=== PATIENT | female | born 1960 | race Caucasian/White ===

== ENCOUNTER 2025-01-17 23:45 | Inpatient (IN) | payer BC, SELFPAY ==
[2025-01-17 22:09] VITALS: BP 132/112
[2025-01-17 22:10] VITALS: BP 150/105; BP 152/112
[2025-01-17 22:18] VITALS: BP 131/78
[2025-01-17 22:21] VITALS: BMI 35.3
--- NOTE | 2025-01-17 22:23 | ED.GENMED ---
History of Present Illness
General
Chief Complaint: Chest Pain
Source: patient and previous hospital records (Acute inferior wall OR 2013. PTCA with stent to proximal RCA. Cath showed single vessel CAD)
Exam Limitations: none
Time Seen by Provider: 01/17/25 22:06
History of Present Illness
History of Present Illness:
The patient is a 64-year-old female with a history of myocardial infarction approximately 10 years ago, presenting with chest pain. The pain started about 20 minutes ago, abrupt and severe accompanied with diaphoresis, mild shortness of breath. The
pain was significant upon arrival, reported as a 10 out of 10 in intensity. Similar chest pain with her OR approximately 10 years ago. Treated here and underwent PTCA with stent. She admits that she has neglected follow-up with cardiology within
the past few years. Vital signs and ECG were conducted upon arrival. EKG shows ST segment elevation anteriorly with reciprocal flipped T's inferiorly consistent with STEMI, acute anterior wall OR. STEMI alert initiated by triage nurse. Patient
has been quickly brought to room 7. The patient did not take nitroglycerin at home but admitted to ingesting approximately five low-dose aspirin tablets, albeit they were not chewable.
Prior to tonight patient had been feeling well.
She continues to smoke cigarettes.
Past History
Past History
ED Past Medical History: CAD, HTN and OR (2013 and again today, January 17, 2025)
ED Past Surgical History: Cardiac (PTCA with stent to the proximal RCA 2013) and Orthopedic
Social History
Tobacco: Smoker
Alcohol: Occasional
Drug: Marijuana
Personal:
Living: with roommate
Employment: Employed
Family History
Family History: Hypertension
Phy Exam
Physical Exam
Physical Exam:
GENERAL: 64-year-old woman appears her stated age, awake and alert, appears in moderate distress, anxious, diaphoretic, mildly short of breath. Easily communicative.
EYE: anicteric
NECK: Supple, nontender, no meningismus, no significant adenopathy.
ENT: oral mucosa is moist. No rhinorrhea.
CARDIAC: Regular rate and rhythm in the 80s. no murmur.
LUNGS: Mild resting tachypnea, mildly decreased breath sounds at bases otherwise clear to auscultation.
ABDOMEN: Rotund, soft, nondistended, without focal tenderness, normoactive BS.
NEUROLOGICAL: Alert and oriented x3, no focal neuro deficits.
SKIN: Warm and mildly diaphoretic, normal color, skin intact. No rash.
MUSCULOSKELETAL: No C/C/E. peripheral pulses are full and equal b/l. No palpable tenderness.
PSYCH: Moderately anxious. Cooperative.
Scores
Heart Score for Chest Pain Patients
STEMI patient?: Yes
Course
Orders/Labs/Results
Orders:
Orders
01/17/25 22:02
Electrocardiogram (*1) Urgent
Reason for Study: Chest Pain
EKG- Treatment ONCE
01/17/25 22:15
Complete Blood Count/With Diff Urgent
Comprehensive Metabolic Panel Urgent
Troponin I Urgent
01/17/25 22:19
Ondansetron Injectable [Zofran] 4 mg .ROUTE .STK-MED ONE
01/17/25 22:27
PT/INR [Prothrombin Time] Urgent
01/17/25 22:31
Morphine Sulfate 2 mg .ROUTE .STK-MED ONE
01/17/25 22:33
Nitroglycerin Sublingual [Nitrostat (Sublingual)] 0.4 mg .ROUTE .STK-MED ONE
01/17/25 22:34
Metoprolol [Lopressor] 5 mg .ROUTE .STK-MED ONE
Ticagrelor [Brilinta] 180 mg .ROUTE .STK-MED ONE
01/17/25 22:35
Heparin 5,000 units .ROUTE .STK-MED ONE
01/17/25 23:25
ECG [Electrocardiogram (*1)] Stat
Reason for Study: Chest Pain
Code Status As Directed
Resuscitation Status: Full Code
VTE Contraindication Routine
VTE Mechanical Device Contraindication: Medical Contraindication
Pharmocologic Contraindication: Medical Contraindication
Hgba1c [Glycohemoglobin (HgbA1c)] Routine
01/17/25 23:26
Admit Patient As Directed
Co-Sign Provider:
Level of Care: Inpatient admission
Assign to:: CVICU
Physician / Group: jerri
Diagnosis: Anterior stemi
Reason for Hospitalization: Anterior STEMI
Expected length of stay greater than two midnights?: Yes
ELOS- Estimated Length of Stay in days: 4
I certify the patient meets the requirements for IP care: Yes
Activity As Directed
Activity Level: Out of Bed- Ad Ara
Activity Frequency: Ad Ara
Salvage Engineer Procedure As Directed
Cardiac Cath Procedure: cardiac catheterization
Notify MD As Directed
Notify physician if: immediately for chest pain or bleeding from access site(s)
Radial Artery Hemostasis Method As Directed
Instructions:: 3 mL out at 1 hour post placement of band
3 mL out at 1 1/2 hours post placement of band
3 mL out at 2 hours post placement of band
Off at 2 1/2 hours post placement of band
If any oozing or hemotoma occurs:: re-inflate band and call provider
Site Checks As Directed
Check access site for bleeding/hematoma: Yes
Comment: on arrival, Q15min x4, Q30min x2, Q1 hr x2, Q2 hr x2, Q4 hr or per
protocol
Vascular Checks As Directed
Location: distal to access site - pulse check
Frequency: Other
Comment: on arrival, Q15min x4, Q30min x2, Q1 hr x2, Q2 hr x2, Q4 hr or per protocol
Vital Signs As Directed
Frequency: Other
Additional Instructions:: on arrival, Q15min x4, Q30min x2, Q1 hr x2, Q2 hr x2, then Q4 hr or per unit
protocol
PRN Pain Medication Management As Directed
May give lesser potent ordered pain med per pt: Yes
preference::
Protocol:: Medication orders for pain may be administered in a
manner that supports deferring to patient preference
when the pt is:
- Requesting an ordered lesser potent pain medication.
Least to most potent pain medications are defined
as: acetaminophen < NSAID < tramadol < opioids
(morphine, oxycodone, hydromorphone).
- Requesting a lesser dose of the same medication IF
ORDERED.
- Requesting a less intrusive route of administration
if both routes are prescribed by the provider (PO <
IV).
01/17/25 23:30
Troponin I Q6H
Nitroglycerin 100 mg/250 ml [Nitroglycerin Premix] 100 mg in 250 ml IV PER PROTOCOL
Initial dose in mcg/min, then titrate:: 10
Titrate to keep:: Chest Pain Free
Titrate by mcg/min:: 5 mcg/min, may increase by 10 mcg/min if dose > 20 mcg/min
Frequency of titrations (minutes):: every 3-5 minutes
Maximum dose in mcg/min:: 200
Begin to taper infusion when:: Remained at goal for 2hrs
Taper by mcg/min:: 5 mcg/min
Frequency of taper (minutes) if patient maintains goal:: 30
Taper to off?: Yes
If infusion off & no longer maintaining goal:: Contact Provider
01/17/25 23:35
Albuterol [ProAIR HFA INHALER] 2 puff INH R Q4HPRN PRN wheezing
01/17/25 23:38
Atorvastatin [Lipitor] 40 mg PO NOW STA
01/17/25 23:39
Cardiothoracic Surgery Consult Urgent
Consulting Provider: Suhail Gonzales
Was physician already notified: Yes
01/18/25 03:00
Heparin 00593 Units/250 ml 25,000 units in 250 ml IV PER PROTOCOL
Weight to be used for heparin protocol in kilograms (kg):: 96.2
Protocol:: Cardiac Tx/Acute Coronary
PTT Goal Range to be used:: PTT 73 to 111 seconds
Order type:: Initial
INITIAL Infusion Dose (UNITS/KG/hr) & then follow protocol:: 12 units/kg/hr
Infusion Dose in UNITS/hr & then follow protocol (UNITS/hr):: 1,000
INFUSION RATE in mL/hr & then follow protocol (mL/hr):: 10
PTT less than or equal to 64 seconds:: Increase rate by 200 units/hr (+ 2 mL/hr)
PTT 64.1 to 72.9 seconds:: Increase rate by 100 units/hr (+ 1 mL/hr)
PTT 73 to 111 seconds:: Target Range. No change in rate.
PTT 111.1 to 130.9 seconds:: Decrease rate by 100 units/hr (- 1 mL/hr)
PTT 131 to 199.9 seconds:: HOLD for 1 hr. Then decrease rate by 200 units/hr (- 2 mL/hr)
PTT greater than or equal to 200 seconds:: HOLD for 2 hrs & Notify Provider. Then decrease by 200 units/hr (-
2 mL/hr)
Lab follow-up:: Each change, PTT q6h until 2 consecutive are therapeutic. Then PTT
daily.
Heparin Protocol- PTT Orders As Directed
PTT per Heparin protocol: -Obtain CBC and baseline PTT - if not already collected.
-Obtain PTT 6 hours from start of infusion. Then, every 6 hours until 2 consecutive
PTT's are therapeutic. Then, PTT Daily.
-With each rate change, obtain PTT every 6 hours until 2 consecutive PTT's are
therapeutic. Then, PTT Daily.
Notify MD As Directed
Notify physician if: PTT is greater than or equal to 200.
01/18/25 04:44
Basic Metabolic Panel IN AM
Cardiovascular Evaluation IN AM
Complete Blood Count/No Diff IN AM
Troponin I Q6H
01/18/25 06:00
Echo 2D MMode Color/Doppler [Echo 2D MMode Color/Doppler] IN AM
Reason for Study: Anterior wall OR
Cardiology Consult: Bradly Guthrie
Electrocardiogram (*1) IN AM
Reason for Study: Chest Pain
Cholesterol Lowering
At Your Request: Full Participation
Cholesterol Lowering: Sodium, 2 Gram
01/18/25 08:00
Aspirin Low Dose EC [Aspir Low (Enteric Coated)] 81 mg PO DAILY
Metoprolol Xl [Toprol Xl] 25 mg PO DAILY
01/18/25 11:30
Troponin I Q6H
01/18/25 12:00
ECG [Electrocardiogram (*1)] Routine
Reason for Study: Chest Pain
01/18/25 15:00
Complete Blood Count/No Diff Urgent
Comment: Obtain baseline before beginning heparin infusion if not already collected
PTT Routine
Comment: Obtain baseline before beginning heparin infusion if not already collected
01/18/25 18:00
Atorvastatin [Lipitor] 80 mg PO QPM
01/19/25 06:00
Complete Blood Count/No Diff Q2D
Comment: Notify MD if platelet count is <130,000 or decreases by 50% from baseline
01/21/25 06:00
Complete Blood Count/No Diff Q2D
Comment: Notify MD if platelet count is <130,000 or decreases by 50% from baseline
01/23/25 06:00
Complete Blood Count/No Diff Q2D
Comment: Notify MD if platelet count is <130,000 or decreases by 50% from baseline
01/25/25 06:00
Complete Blood Count/No Diff Q2D
Comment: Notify MD if platelet count is <130,000 or decreases by 50% from baseline
01/27/25 06:00
Complete Blood Count/No Diff Q2D
Comment: Notify MD if platelet count is <130,000 or decreases by 50% from baseline
01/29/25 06:00
Complete Blood Count/No Diff Q2D
Comment: Notify MD if platelet count is <130,000 or decreases by 50% from baseline
01/31/25 06:00
Complete Blood Count/No Diff Q2D
Comment: Notify MD if platelet count is <130,000 or decreases by 50% from baseline
02/02/25 06:00
Complete Blood Count/No Diff Q2D
Comment: Notify MD if platelet count is <130,000 or decreases by 50% from baseline
Abnormal Lab Results
01/17/25 01/17/25 01/17/25
22:15 22:27 22:51
WBC 12.6 H 10^3/uL
(4.8-10.8)
MCHC 32.7 L g/dL
(33.0-37.0)
RDW 15.1 H %
(11.5-14.5)
MPV 11.0 H fL
(7.4-10.4)
Abs Immat Gran (auto) 0.1 H 10^3/uL
(0-0.05)
Absolute Neuts (auto) 7.4 H 10^3/uL
(1.4-6.5)
Absolute Lymphs (auto) 4.0 H 10^3/uL
(1.2-3.4)
Absolute Monos (auto) 0.8 H 10^3/uL
(0.1-0.6)
PT 14.7 H Sec
(11.4-14.6)
Glucose 126 H mg/dl
(70-99)
ALT 36 H U/L
(0-35)
Alkaline Phosphatase 147 H U/L
(38-126)
POC ACT Low Range 190 H Seconds
(116-155)
01/17/25
23:15
WBC
MCHC
RDW
MPV
Abs Immat Gran (auto)
Absolute Neuts (auto)
Absolute Lymphs (auto)
Absolute Monos (auto)
PT
Glucose
ALT
Alkaline Phosphatase
POC ACT Low Range 231 H Seconds
(116-155)
01/17/25 22:15
01/17/25 22:15
Vital Signs
Initial and Last Documented VS:
Initial Vital Signs
BP
132/112
01/17/25 22:09
Last Documented Vital Signs
Temp Pulse Resp BP Pulse Ox
97.8 F 62 14 113/58 97
01/18/25 00:00 01/18/25 07:01 01/18/25 07:01 01/18/25 07:01 01/18/25 07:01
MDM/Problems Addressed
Differential Diagnosis Includes:
The Differential Diagnosis includes, in no particular order and is not limited to:
1. Acute Myocardial Infarction
2. Angina Pectoris
3. Aortic Dissection
4. Pulmonary Embolism
5. Pericarditis
6. Costochondritis
7. Gastroesophageal Reflux Disease (GERD)
8. Pneumonia
9. Anxiety-Panic Disorder
10. Esophageal spasm
MDM/Problems Addressed:
EKG consistent with acute anterior wall OR�STEMI. STEMI alert initiated promptly after EKG completed.
Initial chest pain 10 out of 10. Moderately uncomfortable. Hypertensive with initial blood pressure 150/110. Initial pulse ox 94 to 95%.
Patient has taken 5-6 baby aspirin at home.
Chest pain improving after 3 sublingual nitroglycerin tablets. Blood pressure improving to 130/70
She has also been given Brilinta 180 mg�chewed. Heparin 5000 units IV. Lopressor 5 mg IV.
Substernal chest pain has markedly improved but persists with onset of nausea. She has been given an IV dose of Zofran.
Pulse ox drifting down to 89/90%, nasal cannula oxygen initiated. Patient reports increase in nausea with nasal cannula oxygen thus cannula has been transition to oral position with improvement in pulse ox.
Case discussed with cardio interventionalist, Dr. Guthrie. Awaiting his arrival as well as Salvage Engineer team arrival.
Chronic conditions affecting care: HTN and CAD
Acute Exacerbation and/or Progression of Chronic Illness: CAD
*Pulse Oximetry
SaO2: 90
Oxygen Mode of Delivery: Room air
Patient hypoxic: yes
*EKG
Interpreted by ED Provider?: Yes
Interpretation: abnormal
Comparison EKG: changes noted
Rate: normal
Rhythm: sinus
Martin: normal axis
Interval: normal interval
QRS Pattern: poor R-wave progression
Ischemia: ST elevation
*Automobile Relocation Engineer Interpretation
Rate: normal
Interpretation: normal
Rhythm: sinus
*Critical Care Note
Total Time (30-74mins, 75-104mins- exclusive of procedures): 30
comment:
Critical care statement: A total of 30 minutes of critical care time was provided for this patient. This includes management of unstable vital signs, evaluation of the patient at bedside, reviewing the patient's pertinent medical records, discussion
with consultants, review of old EKGs and review of pertinent medical records. This time with separate from time utilized to perform the aforementioned documented procedures
ED Attending Note
-
Portions of this chart may have been created with voice recognition software.� Occasional wrong word or��sound alike� substitutions may have occurred due to the inherent limitations of voice recognition software.
Discharge Plan
Departure
Patient Disposition: Admit
Date of Disposition: 01/17/25
Time of Disposition: 22:23
Admit to: CVICU and supervisor labor gang
Admit to doctor: Jerri
Presentation/result/management discussed w/ accepting MD/DO: Cardiology
Condition: Critical
Discharge Problem:
ST elevation (STEMI) myocardial infarction
Interventions
Interventions:
*General Assessment Last Done: 01/17/25 22:16
*Neglect/Abuse Screening Last Done: 01/17/25 22:16
*ED- Fall Risk Assessment Last Done: 01/17/25 22:16
*Nursing Disposition Last Done: 01/17/25 22:40
ED- Cardiac Assessment Last Done: 01/17/25 22:16
Discharge Date and Time
Discharge Date/Time: 01/17/25 22:40
[2025-01-17 22:32] LABS: Hematocrit 46.2 % (37.0-47.0); Hemoglobin 15.1 g/dL (12.0-16.0); Mean Corp Hgb Conc. 32.7 g/dL (33.0-37.0); Mean Corpuscular Volume 86.0 fL (81.0-99.0); Nucleated Red Blood Cells % 0 %; Platelet Count 243 10^3/uL (130-400); Red Cell Dist. Width 15.1 % (11.5-14.5)
[2025-01-17 22:43] LABS: ALT (SGPT) 36 U/L (0-35); AST (SGOT) 24 U/L (14-36); Albumin 4.4 g/dl (3.5-5.0); Alkaline Phosphatase 147 U/L (38-126); Blood Urea Nitrogen 15 mg/dl (7-17); Calcium 9.7 mg/dl (8.4-10.2); Carbon Dioxide 27 mmol/L (22-30); Chloride 104 mmol/L (98-107); Estimated Creatinine Clearance 110 ml/min; Glucose 126 mg/dl (70-99); Potassium 3.8 mmol/L (3.5-5.1); Sodium 138 mmol/L (135-145); Total Protein 7.4 g/dl (6.3-8.2); eGFR > 60.00
[2025-01-17 22:51] LABS: INR 1.12; PT 14.7 Sec (11.4-14.6)
[2025-01-17 22:56] LABS: ACT-LR - POC 190 Seconds (116-155)
[2025-01-17 23:07] LABS: Troponin I < 0.012 ng/ml
[2025-01-17 23:20] LABS: ACT-LR - POC 231 Seconds (116-155)
[2025-01-17] MEDS: LIPITOR 40 MG PO (23:51)
[2025-01-18] VITALS (31 sets, daily range): BP systolic 100–134; BP diastolic 54–96; BMI 34.2
--- NOTE | 2025-01-18 | PTCARENOTE ---
pt received from [facility] into room 2268. pt AAOx4. Nitro gtt infusing @ 10mg - pt reports CP is 2/10. VSS. SR on monitor, HR 70s. EKG completed. TR band intact to R radial cath site, CDI. bilateral radial pulses palpable. bilateral DP pulses present by
doppler. bilateral breath sounds present. POX 95% on 4LNC. pt denies any SOB. +BS, abdomen soft, nontender. PIV intact and patent. ordered labs drawn and sent. family at bedside.
--- NOTE | 2025-01-18 00:06 | W.PN.UPDATE ---
Update Note
Progress Note Update
Please refer to dictated history and physical for more complete details.
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 She has a prior history of noncompliance and discontinued all of her medications including aspirin quite sometime ago and has not been seen in our office for more than 1 year. She
has a prior history of an acute inferior wall myocardial infarction in December 2013 and underwent successful stenting of the proximal to mid right coronary artery with a 3.5 x 33 mm Xience stent. The patient reports that she has been feeling poorly
for about 6 months with recurring belching and indigestion during periods of physical exertion and at rest. This evening she developed severe substernal chest pressure with symptoms lasting about 20 minutes before she presented to [facility] for evaluation. Her electrocardiogram was notable for anterior ST segment elevation involving leads V2 through V4 and a STEMI alert was activated. She took 5 baby aspirin's at home and received 180 mg loading dose of ticagrelor in the ""emergency department. She was referred for emergent coronary angiography with her chest pain improving from 10/10 in intensity to 3-4/10 in intensity by the time she left the emergency department. She underwent coronary angiography and was found
to have severe multivessel coronary artery disease. Please refer to the catheterization report for complete details. She became chest pain-free during the procedure. Given her extent of coronary artery disease it was felt that coronary artery
bypass grafting would probably be her best treatment option. I discussed with patient and family. She will be evaluated by CT surgery in the morning. She remained chest pain-free at the conclusion of the diagnostic angiogram.
--- NOTE | 2025-01-18 00:11 | ITS.CL.CATH ---
Multi Share Program Coordinator - Catheterization
Cardiac Catheterization
Procedure Report:
LEFT HEART CATHETERIZATION
Date of Procedure: January 17, 2025
Referring: [facility] Emergency Department
PROCEDURES:
1. Left heart catheterization with coronary and single-plane left ventriculography
INDICATION: This is a 64-year-old female with a past medical history notable for an inferior wall myocardial infarction treated with successful stenting of the proximal to mid right coronary artery with placement of a 3.5 x 33 mm Xience stent.
Since that time she has been only intermittently compliant with medications. She was last seen by Dr. Justin about 15 months ago and reported that she had discontinued all of her medications including aspirin. She now presents to [facility] for evaluation of 10 out of 10 substernal chest pressure that began approximately 30 minutes prior to presentation. Her electrocardiogram was notable for anterior ST segment elevation. She received a loading dose of ticagrelor, sublingual
nitroglycerin, and intravenous heparin with significant improvement in her chest pain syndrome (pain rated 3-4/10 in intensity). A STEMI alert was activated and she is referred for coronary angiography. The patient does continue to smoke between a
half a pack and a pack of cigarettes daily.
ACCESS: Right radial artery, 6 Nepali sheath
HEMODYNAMICS : (mmHg)
AO (s/d) : 141/84
LV (s/d) : 138/15
LVEDP : 30
CORONARY FINDINGS
DOMINANCE: Right
LEFT MAIN: Short and unobstructed
LEFT ANTERIOR DESCENDING: The LAD arises normally from the left main and runs in the anterior interventricular groove. There is a hazy ulcerated 95% stenosis in the mid LAD with JOHN II flow into the distal vessel.
CIRCUMFLEX: The circumflex is a medium caliber nondominant vessel with a complex Crenshaw 1,1,1 stenosis in the mid circumflex with a 95% stenosis in the mid circumflex involving a large OM1 and proximal to mid portion of OM 2.
RIGHT CORONARY ARTERY: The right coronary artery is a dominant vessel. There is diffuse 50% in-stent restenosis in the right coronary stent. The mid right coronary artery beyond the stented segment has a 40% stenosis. The PDA has a 60% mid
stenosis and a posterolateral branch has a 90% proximal stenosis
VENTRICULOGRAPHY: Left ventriculography was performed in an BAPTISTE projection. The digital single-plane left ventricular ejection fraction is estimated at 35-40% with mid to distal anterior hypokinesis
NOTE: At this point the patient reported that she was chest pain-free. I reviewed the angiograms with Dr. Gonzales and given the complexity of her coronary disease and chronic medical noncompliance the decision was made to hold on percutaneous
revascularization and refer for coronary artery bypass grafting
SEDATION: 0 minutes of procedural sedation was utilized. The patient refused fentanyl or Versed.
RADIATION SUMMARY: Fluoro Time (min): 3.2, Dose (mGy): 474, DAP (Gy.cm2) : 29.4
Closure Device: TR band
CONCLUSIONS
1. Multivessel coronary artery disease involving the mid LAD and trifurcation stenosis (Crenshaw 1,1,1) involving the mid circumflex, large OM 1 and moderate OM 2 as well as the PDA and posterolateral branch
2. Moderately reduced LV systolic function
RECOMMENDATIONS
1. The patient became chest pain-free during the catheterization procedure and had not received fentanyl or Versed during the procedure. There was JOHN II flow into the apical LAD. The angiograms were reviewed with Dr. Gonzales and given the
complexity of her coronary disease and chronic history of medical noncompliance a decision was made to evaluate for coronary artery bypass grafting
2. Will trend serial troponin levels and obtain fasting lipid profile and hemoglobin A1c
3. Continue intravenous heparin and nitroglycerin
4. Could consider intra-aortic balloon pump for recurring symptoms
Copy to: Dr. Desean Justin
[2025-01-18] MEDS: ATIVAN 0.5 MG PO (00:51)
[2025-01-18 01:39] LABS: Troponin I 1.290 ng/ml
[2025-01-18] MEDS: HEPARIN 25000 UNITS/250 ML IV ×2 (03:21→23:39)
--- NOTE | 2025-01-18 05:00 | PTCARENOTE ---
no acute changes, VSS. SR 60s-70s. Nitro gtt infusing @ 15mg. Heparin gtt infusing per orders. POX 93-98% on room air. AM labs drawn and sent. EKG done. pt resting between care.
[2025-01-18 05:22] LABS: Hematocrit 40.0 % (37.0-47.0); Hemoglobin 13.3 g/dL (12.0-16.0); Mean Corp Hgb Conc. 33.3 g/dL (33.0-37.0); Mean Corpuscular Volume 87.1 fL (81.0-99.0); Platelet Count 197 10^3/uL (130-400); Red Cell Dist. Width 15.0 % (11.5-14.5)
[2025-01-18 05:43] LABS: Blood Urea Nitrogen 16 mg/dl (7-17); Calcium 9.0 mg/dl (8.4-10.2); Carbon Dioxide 26 mmol/L (22-30); Chloride 108 mmol/L (98-107); Estimated Creatinine Clearance 110 ml/min; Glucose 114 mg/dl (70-99); HDL Cholesterol 32 mg/dl; LDL Cholesterol, Calculated 92 mg/dl; Potassium 3.8 mmol/L (3.5-5.1); Sodium 139 mmol/L (135-145); Very Low Density Lipoprotein 45 mg/dl (0-30); eGFR > 60.00
[2025-01-18 05:59] LABS: Troponin I 11.500 ng/ml
[2025-01-18 08:16] LABS: Magnesium 1.9 mg/dl (1.6-2.3)
[2025-01-18] MEDS: PROTONIX PO (08:55)
[2025-01-18] MEDS: ASPIR LOW (ENTERIC COATED) 81 MG PO (08:55)
[2025-01-18] MEDS: TOPROL XL 25 MG PO (08:55)
--- NOTE | 2025-01-18 09:23 | CONSULT.CT ---
Addendum entered and electronically signed by Lesa Toro NP 01/18/25 11:56:
Performing Provider: Lesa ALICEA for Jagruti Blackwell MD
Original Note:
Consultation
-
Date/Time Consultation Requested: 01/17/25 at 2330
Date/Time Consultation Performed: 01/18/25 at 0900
Requesting Provider: Dr. Bradly Guthrie
Performing Provider: NIXON Vasques for Jagruti Blackwell
Reason for Consultation: STEMI with Multivessel CAD
Patient History
Physicians
Family Physician: Dr. Hammad Turner
Outpatient Jacquard Fixer: [facility] ([facility])
Inpatient Jacquard Fixer: [facility]
History of Present Illness
Ms Hammond is a 64-year-old female with a past medical history of CAD with prior inferior KY status post stent to proximal RCA (2013), hypertension, and tobacco misuse who presented to [facility] ED with complaints of chest pain. Patient reported she woke
up in the middle of the night with sudden onset of 10/10 chest pain with associated diaphoresis and shortness of breath. Prior to her chest pain, she reported recent nausea, vomiting, and diarrhea on Friday in addition to frequent belching. She
reported that she had similar symptoms prior to her previous KY in 2013 and has endured these symptoms intermittently throughout the last 6 months. Upon ED arrival, EKG showed acute anterior KY and patient ruled in as STEMI. A nitroglycerin drip
was started and with reduced her chest pain to 3/10. She reported taking ASA at home and was loaded with Brilinta prior to going to the Cardiac Rotary Drum Tanner. Coronary angiography reported severe multivessel CAD involving the mid LAD and trifurcation
stenosis involving the mid circumflex, large OM1 and moderate OM 2 and PDA and posterior lateral branch with moderately reduced LV systolic function. Cardiac surgery was consulted for consideration of CABG.
Past Medical History
Past Medical History: CAD, HTN and KY (Acute Inferior KY 2013 with GREGG to pRCA)
Past Surgical History
Past Surgical History: Cholecystectomy, Orthopedic (Rotator Cuff Sx) and PCI/Stent (RCA 2013)
Family History
Mother: N/A
Father: N/A
Family Medical History: Unable to Obtain
Social History
Alcohol: Occasional (1 Liquor/week)
Drug: Marijuana (2-3 gummies/week)
Tobacco: Smoker (1/2 PPD since )
Living: With Family
Employment: Employed
Allergies
Allergy/AdvReac Type Severity Reaction Status Date / Time
Penicillins Allergy Unknown Verified 08/19/20 10:49
Sulfa (Sulfonamide Allergy Rash Verified 08/19/20 10:49
Antibiotics)
narcotics Allergy Nausea / Uncoded 08/19/20 10:49
Vomiting
Home Medications
�Medication �Instructions �Recorded �Confirmed �Type
aspirin 81 mg tablet,delayed 81 mg PO DAILY ##0 12/21/13 01/18/25 Rx
release
nitroglycerin 0.4 mg sublingual 0.4 mg sublingual [id number] PRN 12/21/13 01/18/25 Rx
tablet chest pain #30 tabs
albuterol sulfate 90 mcg/actuation 2 puff inhalation Q4HPRN PRN 07/08/14 01/18/25 Rx
aerosol inhaler (Proventil HFA) wheezing ##0
melatonin 10 mg tablet 20 mg PO HSPRN PRN Insomnia 01/18/25 01/18/25 History
Review of Systems
-
History Source: Patient
General: Reports No Symptoms
HEENT: Reports No Symptoms
Respiratory: Reports Cough
Cardiac: Reports Chest Pain and CAD
Abdomen/GI: Reports No Symptoms
: Reports No Symptoms
Musculoskeletal: Reports No Symptoms
Skin: Reports No Symptoms
Neurological: Reports No Symptoms
Vascular: Reports No Symptoms
Physical Exam
Vital Signs
Temp 97.8 F 01/18/25 00:00
Temp route: Oral 01/18/25 00:00
Pulse 67 01/18/25 08:01
Rhythm: Normal sinus rhythm 01/18/25 08:26
Resp Rate 15 01/18/25 08:01
Blood pressure 113/62 01/18/25 08:01
Blood pressure extremity used: Right upper arm 01/18/25 08:00
Position: Lying 01/18/25 08:00
MAP (cuff-Kenna Monitor) 77 01/18/25 08:01
SaO2 98 01/18/25 08:28
Nasal Cannula flow liters per minute 4 01/18/25 08:28
Oxygen Mode of Delivery Room air 01/17/25 22:27
Acceptable pain level during hospitalization? 0 01/17/25 22:16
Can the patient verbally communicate their pain? Yes 01/18/25 00:36
Pain scale ratin 01/18/25 00:36
Actual Weight 93.1 kg 01/18/25 05:47
Body Mass Index (BMI) 34.2 01/18/25 05:47
Labs
01/18/25 04:44
PT Cancelled 01/17/25 22:41
Troponin I 11.500 ng/ml H* D 01/18/25 04:44
Exam
General: Well Developed and Well Nourished
HEENT: Normocephalic, Atraumatic and PERRLA
Respiratory: Wheezes
Cardiac: S1/S2 and Regular Rhythm
GI: Soft, Non Tender, Non Distended and Normal Bowel Sounds
Skin: Warm and Dry
Neuro: AO x 3
Extremities: Pulses (+2 DP B/L, +2 Radial B/L)
Psych: Agitated
Assessment / Plan
-
Coronary Artery Disease with STEMI
- Patient's case will be discussed with the Attending Physician.
- Patient reluctant towards surgical intervention at this time.
- Routine preoperative cardiac surgery diagnostic testing will be held until patient determination for consideration of surgery.
- Case management consulted to assist with socioeconomic concerns.
Data Reviewed
-
EKG: Report Reviewed by me
Rotary Drum Tanner: Report Reviewed by me
--- NOTE | 2025-01-18 09:36 | PTCARENOTE ---
Pt presents as generally agitated. Refusing to take PO potassium and protonix - says 'I do not need it.' Heparin infusing at 10 mL/hr and nitro gtt at 20 mcg/min. Pt agreeable to bloodwork - PTT and TROP sent now. Chest pain consistent at 4/10
level since last night. C/O burping and indigestion.
--- NOTE | 2025-01-18 09:38 | W.PN.CARDCBS ---
Addendum entered and electronically signed by Jocelyn Cristina MD 01/18/25 22:48:
I saw and examined the patient.
The Mri Special Procedures Technologist's note was reviewed and I agree with the note. Patient was seen bedside around 11:30AM.
Comment: Ms Hammond is a 64 yo F who presented with anterolateral ST elevation myocardial infarction. The angiography that I have personally reviewed showed 95% mid-LAD stenosis with JOHN II flow, large diagonal with ostial 90% stenosis, long diffuse
disease in the proximal to mid-Lcx 90%, ostial large OM 80% stenosis,� and long area of proximal to mid-RCA 60% stenosis, mid-RPDA 80%, first RPL 90% stenosis. This is high-complexity disease with SYNTAX > 32 and therefore long-term outcomes are
likely better with CABG over PCI.�
She reported to the cath team overnight that her CP had resolved but then noted to us this AM that she has had ongoing chest pain 07/12
VS and lab work reviewed. On exam, pt is in mild distress, appears frustrated about everything, laying in bed, RR, Normal S1 and S2, no m/r/g, morbibdly obese, +JVD, Decreased BS at bases, abd soft, NT, ND +BS, warm ext, no significant edema.
Trop peaked at 12 so far. We had extensive discussion bedside of the management options which included the risks and benefits of urgent PCI, and intra-aortic balloon pump. We also discussed the possible consequences of refractory chest pain that is
untreated which includes infarctions of myocardial tissue that could result in hemodynamic decompensation and heart failure. After discussion of risks and benefits with her, we decided on titration of nitroglycerin with close monitoring, and she
became chest pain free on 35mcg. She is now open to consideration for CABG and necessary workup with this. CT surgery colleagues have seen patient and are following.
Medical therapy for now includes ASA 81mg, high intensity statin, BB, cangrelor IV which will be started, nitroglycerine drip that we have uptitrated to get pt chest pain free.
Echo reviewed by me showed LVED 40-45% with hypokinesis of mid to apical anterior and harry.
I discussed the care with the ICU, the cardiology PA, the flakeboard line tender that performed the angiography, Dr. Chris Guthrie to review the critical care nature of her condition and that we would have a low threshold for urgent take-back to
the farm laborer for intervention.�
I personally reviewed selected labs, images, and diagnostic tests.
My direct critical care time was 42minutes. The time documented above was spent providing direct care to this critically ill patient does not include any time for procedures Furthermore, in calculating this total time I have been careful to only
include the minimum time during which I personally was providing the critical care services listed to this patient while I was on the unit or floor.
My critical care time included examination of the patient, review of laboratory data, management of IV vasoactive meds, review of chest xray, ECG, echocardiography, imaging, coronary angiography. Discussion of risks and benefits of IABP management,
discussion with consultants/clinicians, documentation
Jocelyn Cristina MD, [facility], [facility]
Original Note:
Today's Communication / Plan
-
4th troponin pending
Chest pain remains 3 out of 10 which is overall stable compared to what she had at end of cath early this morning
Patient says that no matter what she does not want bypass surgery and that she would be compliant with DAPT
Impression / Plan
-
PCP: Dr. Raines
Card: Dr. Justin
Impression:
Admitted as STEMI alert 01/17/2025
AWMI 01/17/2025
MV CAD involving mid LAD and trifurcation stenosis of the mid circumflex, large OM1 and moderate OM 2 as well as the PDA and PLB by cardiac cath 01/18/2025
ICM EF 40 to 45% by echo 01/18/2025
CAD s/p CO and 3.5 mm Xience GREGG to the proximal to mid RCA 2013
Medication noncompliance, has intermittently stopped aspirin therapy
Active smoker
Hyperlipidemia with statin intolerance
Hypothyroidism with abnormal TFTs 01/18/2025
Hyperglycemia
Echo 12/21/2013: EF 55 to 60%, no WMA
Echo 01/18/2025: Preliminary report, EF 40 to 45%
Plan:
-Patient came to the ER late last night with chest pain and ECG was concerning for anterior STEMI and was referred for urgent cardiac catheterization that revealed MV CAD.
-Overall chest pain improved from admission but continues to be about 3 out of 10 which she says is stable since end of cardiac cath very early this morning.
-Heparin gtt running
-Nitro gtt running at 25 mcg/min
-Aspirin 81 mg daily ordered. Patient was given a loading dose of Brilinta on 01/17/2025 and this is now on hold for possible CABG.
-Patient was seen in consultation by CT surgery SENIOR SCIENTIST and I reviewed the recommendation for CABG evaluation as well on 01/18/2025. Patient initially states that she would refuse any CT scan as it would be too expensive and it is a 'nonnegotiable' for
her. I asked patient if there was no need for CT scan which she would be agreeable to CT surgery and she says no because she cannot afford to miss that much work and that no matter what she does not want CABG. 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
has been presented with. Patient says that if she was given the option of PCI that she would be compliant with DAPT. Patient reports previous compliance and tolerance with Plavix. Patient was taking aspirin on and off just prior to this admission
without any clear reason as to why she had stopped aspirin. Reviewed with CT surgery SENIOR SCIENTIST and will review with interventional cardiology attending as well.
-Initial troponin undetectable and now up to 11.5 on 01/18/2025 AM, labs reviewed by me a 4th troponin is pending for 01/18/2025 and I confirmed with the patient's RN that this was drawn and sent.
-EF was 35 to 40% by V-gram at time of cath 01/18/2025 and by preliminary echo report looks about the same or maybe a bit better at 40 to 45%. This was reviewed with the patient at bedside
-Patient was agreeable to taking Toprol XL 25 mg daily, but says that she hates it
-LDL 92. Patient was not taking a statin prior to admission. Now ordered atorvastatin 80 mg daily with the first dose scheduled for 01/18/2025 PM and it is possible she may refuse this
-Patient noted to be hyperglycemic, HgbA1c is pending
-Hold off on cardiac rehab until patient is revascularized
-Patient has no plans on quitting smoking at this time
-Potassium is 3.8 and patient is refusing potassium supplementation while she is in the normal range. Will follow on telemetry and encourage increased dietary intake of potassium.
-TSH was 21.2 and free T4 is low at 0.52. Will ask hospitalist to consult. Patient was taking Synthroid in the past, but it is not active on her current med list.
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
Subjective
Date of Service: January 18, 2025
Chest pain is stable
Objective
Labs:
01/18/25 04:44
Labs
Hgb 13.3 g/dL (12.0-16.0) 01/18/25 04:44
Hct 40.0 % (37.0-47.0) 01/18/25 04:44
Plt Count 197 10^3/uL (130-400) 01/18/25 04:44
PT Cancelled 01/17/25 22:41
INR Cancelled 01/17/25 22:41
Sodium 139 mmol/L (135-145) 01/18/25 04:44
Potassium 3.8 mmol/L (3.5-5.1) 01/18/25 04:44
BUN 16 mg/dl (7-17) 01/18/25 04:44
Creatinine 0.5 mg/dL (0.6-1.0) L 01/18/25 04:44
Glucose 114 mg/dl (70-99) H 01/18/25 04:44
Troponins
01/17/25 01/17/25 01/18/25
22:15 23:28 00:12
Troponin I < 0.012 Cancelled 1.290 H* D
01/18/25
04:44
Troponin I 11.500 H* D
Vital Signs and I&O:
Vital Signs
Temp Pulse Resp BP Pulse Ox
97.8 F 67 15 113/62 98
01/18/25 00:00 01/18/25 08:01 01/18/25 08:01 01/18/25 08:01 01/18/25 08:28
Vital Signs
Temp Pulse Resp BP Pulse Ox
97.8 F 67 15 113/62 98
01/18/25 00:00 01/18/25 08:01 01/18/25 08:01 01/18/25 08:01 01/18/25 08:28
Intake & Output
01/16/25 01/17/25 01/18/25 01/19/25
06:59 06:59 06:59 06:59
Intake Total 193.6 / 193.6
Balance 193.6 / 193.6
Physical Exam
Physical Exam
GEN: Agitated during echo. AAO x3
HEENT: EOMI
LUNGS: 4 L NC. No wheeze
CV: SR on tele.
[2025-01-18 10:07] LABS: APTT 43.8 Sec (23.4-35.0)
[2025-01-18 10:25] LABS: Troponin I 12.000 ng/ml
[2025-01-18 11:50] LABS: Glycohemoglobin (HgbA1c) 5.9 % (4.0-5.6)
[2025-01-18] MEDS: TYLENOL 650 MG PO (12:12)
--- NOTE | 2025-01-18 12:30 | CON.HOSP ---
Consultation
-
Requesting Provider: Dr. Bradly Guthrie
Performing Provider: Dr. Roberto Juárez
Reason for Consultation: Hypothyroidism
Family Physician
-
Family Physician: INTERVIEWE UNKNOWN - PT NOT
Chief Complaint
-
Chest pain
History of Present Illness
Patient is 64 years old with history of coronary artery disease, hyperlipidemia, hypertension, hypothyroidism, COPD, medication noncompliance who came to the ER with chest pain.
Patient was stopped taking all her medications for last 15-month, in the ER patient noted to have STEMI, underwent cardiac cath which showed:
1. Multivessel coronary artery disease involving the mid LAD and trifurcation stenosis (Crenshaw 1,1,1) involving the mid circumflex, large OM 1 and moderate OM 2 as well as the PDA and posterolateral branch
2. Moderately reduced LV systolic function.
CT surgery consulted for CABG consideration.
Patient seen and examined at bedside, denies any chest pain or shortness of breath, no abdominal pain, no nausea, no vomiting, no diarrhea or constipation.
Consult for hospitalist medicine for hypothyroidism.
Medical History
Past Medical History
Past Medical History: Reports CAD, COPD, HTN and Hypercholesterolemia
Past Surgical History: Reports Cholecystectomy
Social History
Tobacco: Smoker
Alcohol: Occasional
Drug: None
Personal:
Living: Alone
Employment: Employed
Family History
Family History: Reviewed & Not Pertinent
Allergies / Home Medications
Allergies reflects when Allergies were last updated in [employer].
Home Medications with original date entered in [employer]
Allergy/Medication List:
Allergies
Allergy/AdvReac Type Severity Reaction Status Date / Time
Penicillins Allergy Unknown Verified 08/19/20 10:49
Sulfa (Sulfonamide Allergy Rash Verified 08/19/20 10:49
Antibiotics)
narcotics Allergy Nausea / Uncoded 08/19/20 10:49
Vomiting
Home Medications (patient not taking any medications at home)
aspirin 81 mg tablet,delayed release 81 mg PO DAILY ##0 12/21/13
nitroglycerin 0.4 mg sublingual tablet 0.4 mg sublingual [id number] PRN chest pain #30 tabs 12/21/13
albuterol sulfate 90 mcg/actuation aerosol inhaler (Proventil HFA) 2 puff inhalation Q4HPRN PRN wheezing ##0 07/08/14
melatonin 10 mg tablet 20 mg PO HSPRN PRN Insomnia 01/18/25
Review of Systems
-
A 12 point Review of Systems was completed except as noted: Yes
Constitutional: Reports Fatigue; Denies Fever, Weight Gain or Weight Loss
EENT: Denies Sore Throat, Mouth Pain or Mouth Swelling
Respiratory: Denies Cough, Hemoptysis or Trouble Breathing
Cardiac: Reports Chest Pain; Denies Diaphoresis, Palpitations or Syncope
Abdomen/GI: Denies Abdominal Pain, Nausea or Vomiting
: Denies Dysuria, Frequency or Flank Pain
Neurological: Denies Headache, Weakness or Numbness
Endocrine: Denies Polydipsia or Temp Intolerance
Psych: Reports Depression; Denies Anxiety or Panic Disorder
Physical Exam
Vital Signs
Vital Signs
Temp Pulse Resp BP Pulse Ox
97.8 F 67 15 113/62 98
01/18/25 00:00 01/18/25 08:01 01/18/25 08:01 01/18/25 08:01 01/18/25 08:28
Physical Exam
General: Well Developed, Well Nourished and No Apparent Distress
HEENT: Normocephalic, Moist Mucous Membranes and Atraumatic
Respiratory: Clear
Cardiac: S1/S2 and Regular Rhythm; Negative Murmur or Rub
GI: Soft, Non Tender, Non Distended and Normal Bowel Sounds
Rectal: Deferred by Provider
Musculoskeletal: No Clubbing, No Cyanosis and No Edema
Skin: Negative Rash
Neuro: Nonfocal/Grossly Intact
Laboratory Results
-
Laboratory Results
01/18/25 04:44
PT Cancelled 01/17/25 22:41
INR Cancelled 01/17/25 22:41
APTT 43.8 Sec (23.4-35.0) H 01/18/25 09:23
Total Bilirubin 0.5 mg/dl (0.2-1.3) 01/17/25 22:15
AST 24 U/L (14-36) 01/17/25 22:15
ALT 36 U/L (0-35) H 01/17/25 22:15
Alkaline Phosphatase 147 U/L (38-126) H 01/17/25 22:15
Troponin I 12.000 ng/ml H* 01/18/25 09:33
Impression / Plan
-
IMPRESSION:
Patient is 64 years old with history of coronary artery disease, hyperlipidemia, hypertension, hypothyroidism, COPD, medication noncompliance who came to the ER with chest pain.
Patient was stopped taking all her medications for last 15-month, in the ER patient noted to have STEMI, underwent cardiac cath which showed:
1. Multivessel coronary artery disease involving the mid LAD and trifurcation stenosis (Crenshaw 1,1,1) involving the mid circumflex, large OM 1 and moderate OM 2 as well as the PDA and posterolateral branch
2. Moderately reduced LV systolic function.
CT surgery consulted for CABG consideration.
Patient seen and examined at bedside, denies any chest pain or shortness of breath, no abdominal pain, no nausea, no vomiting, no diarrhea or constipation.
Consult for hospitalist medicine for hypothyroidism
Assessment/plan:
STEMI
Status post cardiac cath shows:
1. Multivessel coronary artery disease involving the mid LAD and trifurcation stenosis (Crenshaw 1,1,1) involving the mid circumflex, large OM 1 and moderate OM 2 as well as the PDA and posterolateral branch
2. Moderately reduced LV systolic function.
CT surgery consulted for CABG consideration.
Continue metoprolol.
Continue heparin drip
History of hypothyroidism
TSH 21.2.
Free T4 0.52
Patient used to be on Synthroid but not sure about the dose.
She said it could be 100 mcg or 125 mcg.
Patient was not taking her Synthroid for more than a year.
Will resume Synthroid at 50 mcg daily.
Need to repeat TSH/free T4 in 6 to 8 weeks.
Prediabetes (HBA1C 5.9)
Diet and exercise
Lifestyle modification
No need to start antidiabetic medication
History�of�hypertension
Not taking any home meds, continue metoprolol
History of hyperlipidemia
Not taking any home meds, continue atorvastatin
�
CODE STATUS:�Full�code
DVT�prophylaxis:�Heparin drip
Diet: cardiac�diet
Total�time�spent�on�today�s�encounter�was�75�minutes�which�included�time�spent�in�counseling�the�patient/family�regarding�diagnosis�and�treatment�plan�as�listed�above,�goals�of�care,�and�symptom�management.�Case�was�discussed�with�nursing�staff,�spec
ialists,�and�care�coordinators/case�management.�All�labs�and�imaging�personally�reviewed�by�me.�Remainder�the�time�spent�in�detailed�review�of�previous�records,�lab�data,�imaging,�and�other�medical�provider�documentation.
�
--- NOTE | 2025-01-18 12:39 | W.PN.UPDATE ---
Update Note
Progress Note Update
Back into see patient, Nitro gtt running at 30 mcg/min and patient continues with 1 out of 10 pain. Reviewed options with patient and the need to get her to a point of being pain-free. One option is to return to the [facility] for LAD PCI and she
will need eventual staged PCI for residual disease. Another option, if she is now agreeable to CABG evaluation and CABG as an option, would be to increase Nitro gtt to get patient pain-free and then continue his evaluation. If patient cannot be
made pain-free we could return to the lab for IABP placement. Ultimately patient feels more agreeable to CABG evaluation and procedure. Nitro gtt increased to 35 mcg and will recheck on pain and up date this note. Patient can take Tylenol for
pain. 31 minutes in critical care time between interventional cardiology, reviewing with nursing and CT surgery team plus [id number] time with patient
Update note at 1318: Back into check on patient and she is now 0 out of 10 for her chest pain, she is pain-free at this time on Nitro gtt at 35 mcg, will continue at current rate. Patient will continue with CABG workup.
--- NOTE | 2025-01-18 12:54 | PTCARENOTE ---
Pt says chest pain is now 0/10. Nitro gtt at 35 mcg/min. BP stable 128/76.
[2025-01-18 15:34] LABS: Hematocrit 38.4 % (37.0-47.0); Hemoglobin 12.7 g/dL (12.0-16.0); Mean Corp Hgb Conc. 33.1 g/dL (33.0-37.0); Mean Corpuscular Volume 85.0 fL (81.0-99.0); Platelet Count 183 10^3/uL (130-400); Red Cell Dist. Width 15.1 % (11.5-14.5)
[2025-01-18 15:45] LABS: APTT 51.7 Sec (23.4-35.0)
[2025-01-18 15:58] LABS: Troponin I 7.830 ng/ml
[2025-01-18] MEDS: KENGREAL 255 MCG IV (16:25)
[2025-01-18] MEDS: LIPITOR 80 MG PO (18:05)
--- NOTE | 2025-01-18 20:00 | PTCARENOTE ---
assumed care of pt from previous RN. pt A&Ox4, resting in bed at time of assessment. pt anxious, agitated. SB-SR on tele-monitor. POX 95% on RA. abd s/n, +BS. pt voiding clear, yellow colored urine in toilet. R radial cath site CDI. PIV intact. see
worklist for complete nursing assessment, interventions, gtt titrations, VS, and I&Os.
[2025-01-18] MEDS: XANAX 0.5 MG PO (20:35)
[2025-01-18 21:58] LABS: APTT 73.8 Sec (23.4-35.0)
[2025-01-18 22:11] LABS: Troponin I 5.680 ng/ml
--- NOTE | 2025-01-18 23:40 | W.PN.CT ---
Assessment / Plan
-
Assessment:
-Severe 3v CAD
-S/P STEMI on 01/17/25
-Hx STEMI S/P PCI with GREGG to GREGG to prox RCA, 12/20/13
-Brilinta washout
-Medical non-compliance
-HTN
-HLD
-Prediabetes (hgb A1C 5.9)
-Class 2 obesity (BMI 35)
-Hypothyroidism
-Current tobacco abuse (1/2 PPD since 16 y/o)
-Marijuana use (2-3 gummies/week)
-ETOH use (1 Liquor/week)
-Anxiety
-S/P Cholecystectomy
-S/P Repair of rotator cuff
Plan:
-Cont. current medical management per primary team
-Cont. current meds (ASA, Heparin and NTG gtts, Toprol, Lipitor, Synthroid, Protonix)
-Avoid JOSE ENRIQUE-I/ARBs x 48 hrs prior to CABG
-Brilinta washout, loaded on 01/17/25
-Ongoing preop workup/evaluation
-For eventual CABG/+/- LAAE by Dr. Blackwell
-Will cont. to closely monitor
Subjective
-
Date of Service: January 18, 2025
Objective Data
-
Lab Results
01/18/25 15:25
01/18/25 04:44
PT Cancelled 01/17/25 22:41
INR Cancelled 01/17/25 22:41
APTT 73.8 Sec (23.4-35.0) H 01/18/25 21:38
Vital Signs
Vital Signs
Temp Pulse Resp BP Pulse Ox
97.8 F 53 21 124/71 96
01/18/25 00:00 01/18/25 22:03 01/18/25 22:03 01/18/25 22:03 01/18/25 21:23
CT Intake/Output/Weight
01/18/25 01/18/25 01/19/25
06:59 18:59 06:59
Intake Total 193.6 / 193.6
Balance 193.6 / 193.6
SaO2: 96
--- NOTE | 2025-01-18 23:55 | PTCARENOTE ---
assessment remains unchanged. VSS.
[2025-01-19] VITALS (19 sets, daily range): BP systolic 85–135; BP diastolic 51–99
[2025-01-19] MEDS: NICODERM TRANSDERMAL 21 MG TRANSDERM (00:37)
[2025-01-19] MEDS: MELATONIN 5 MG PO (00:37)
[2025-01-19] MEDS: ATIVAN 0.5 MG PO (00:37)
--- NOTE | 2025-01-19 02:18 | DOWNTIME ---
There was a [employer] Client Cabin Supervisor Downtime on 01/19/2025 from 0100 to 01/19/2025 at 0215. Downtime documentation of patient's care, including medication administrations, has been reconciled in the electronic record per guidelines. Refer to the
patient's paper chart under the miscellaneous tab to see printed paper medication records and downtime forms.
[2025-01-19 03:59] LABS: Hematocrit 37.4 % (37.0-47.0); Hemoglobin 12.5 g/dL (12.0-16.0); Mean Corp Hgb Conc. 33.4 g/dL (33.0-37.0); Mean Corpuscular Volume 86.4 fL (81.0-99.0); Platelet Count 174 10^3/uL (130-400); Red Cell Dist. Width 15.0 % (11.5-14.5)
[2025-01-19 04:06] LABS: INR 1.13; PT 14.8 Sec (11.4-14.6)
[2025-01-19 04:07] LABS: APTT 71.0 Sec (23.4-35.0)
[2025-01-19] MEDS: KENGREAL 255 MCG IV (04:25)
--- NOTE | 2025-01-19 04:30 | PTCARENOTE ---
no acute changes. VSS. AM labs collected and sent. EKG completed.
[2025-01-19 05:11] LABS: ALT (SGPT) 28 U/L (0-35); AST (SGOT) 43 U/L (14-36); Albumin 3.4 g/dl (3.5-5.0); Alkaline Phosphatase 122 U/L (38-126); Blood Urea Nitrogen 10 mg/dl (7-17); Calcium 8.2 mg/dl (8.4-10.2); Carbon Dioxide 25 mmol/L (22-30); Chloride 108 mmol/L (98-107); Estimated Creatinine Clearance 108 ml/min; Glucose 104 mg/dl (70-99); Magnesium 1.8 mg/dl (1.6-2.3); Potassium 3.6 mmol/L (3.5-5.1); Sodium 137 mmol/L (135-145); Total Protein 5.8 g/dl (6.3-8.2); eGFR > 60.00
--- NOTE | 2025-01-19 06:00 | W.PN.CT ---
Today's Communication / Plan
-
Plan:
-Cont. current medical management per primary team
-Cont. current meds (ASA, Heparin and NTG gtts, Toprol, Lipitor, Synthroid, Protonix)
-Avoid JOSE ENRIQUE-I/ARBs x 48 hrs prior to CABG
-Brilinta washout, loaded on 01/17/25
-Will replete K 3.6 and Mg 1.8
-Ongoing preop workup/evaluation
-For eventual CABG/+/- LAAE by Dr. Blackwell
-Will cont. to closely monitor
Assessment / Plan
-
Assessment:
-Severe 3v CAD
-S/P STEMI on 01/17/25
-Hx STEMI S/P PCI with GREGG to GREGG to prox RCA, 12/20/13
-Brilinta washout
-Medical non-compliance
-HTN
-HLD
-Prediabetes (hgb A1C 5.9)
-Class 2 obesity (BMI 35)
-Hypothyroidism
-Current tobacco abuse (1/2 PPD since 16 y/o)
-Marijuana use (2-3 gummies/week)
-ETOH use (1 Liquor/week)
-Anxiety
-S/P Cholecystectomy
-S/P Repair of rotator cuff
Discussed patient care with: Cardiology, Nursing, Respiratory Therapy, Pharmacy and Care Team
Subjective
-
Date of Service: January 19, 2025
Pt denies CP/SOB overnight
Objective Data
-
Lab Results
01/19/25 03:47
01/19/25 03:47
PT 14.8 Sec (11.4-14.6) H 01/19/25 03:47
INR 1.13 01/19/25 03:47
APTT 71.0 Sec (23.4-35.0) H 01/19/25 03:47
Vital Signs
Vital Signs
Temp Pulse Resp BP Pulse Ox
98.2 F 67 7 92/54 95
01/19/25 04:00 01/19/25 04:00 01/19/25 00:00 01/19/25 04:00 01/19/25 04:00
CT Intake/Output/Weight
01/18/25 01/18/25 01/19/25
06:59 18:59 06:59
Intake Total 193.6 / 193.6 13 / 379.3 366.3 / 379.3
Balance 193.6 / 193.6 13 / 379.3 366.3 / 379.3
SaO2: 95 (2L)
Physical Exam
-
General: Awake, Oriented and AOx3
Cardiovascular: Regular rate & rhythm, No Murmurs, No Rub and No Gallop
Respiratory: Clear
Sternum: Stable
Extremities: No Edema
Data Reviewed
-
Lab Results: Results Reviewed
Medications: Active Meds Reviewed
Chest X-Ray: Report Reviewed and Image Reviewed
ECG: Report Reviewed and Image Reviewed
[2025-01-19] MEDS: SYNTHROID 50 MCG PO (07:17)
[2025-01-19] MEDS: KCL 40 MEQ PO (07:17)
--- NOTE | 2025-01-19 07:35 | W.PN.CARDCBS ---
Addendum entered and electronically signed by Gabe Starr DO 01/19/25 13:19:
I saw and examined the patient.
The Education Associate's note was reviewed and I agree with the note.
Comment:
Plan:
Continue IV heparin and IV cangrelor drip.
Continue aspirin.
TEG pending and will determine timing of CABG tomorrow versus next week.
EF slightly reduced at 40 45%
Discussed smoking cessation
Cont beta phu and statin.
Original Note:
Today's Communication / Plan
-
Cangrelor gtt, Heparin gtt and aspirin 81 mg daily ordered
Nitro gtt running at 35 mcg/min and patient is pain free
TEG pending and will determine surgery end of this week vs next week
Impression / Plan
-
PCP: Dr. Raines
Card: Dr. Justin
Impression:
Admitted as STEMI alert 01/17/2025
AWMI 01/17/2025
MV CAD involving mid LAD and trifurcation stenosis of the mid circumflex, large OM1 and moderate OM 2 as well as the PDA and PLB by cardiac cath 01/18/2025
ICM EF 40 to 45% by echo 01/18/2025
CAD s/p PA and 3.5 mm Xience GREGG to the proximal to mid RCA 2013
Medication noncompliance, has intermittently stopped aspirin therapy
Active smoker
Hyperlipidemia with statin intolerance
Hypothyroidism with abnormal TFTs 01/18/2025
Hyperglycemia and prediabetes
Echo 12/21/2013: EF 55 to 60%, no WMA
Echo 01/18/2025: EF 40 to 45%, stage I diastolic dysfunction, normal RV size and function, no significant valve disease
Plan:
-Patient came to the ER late 01/17/25 with chest pain and ECG was concerning for anterior STEMI and was referred for urgent cardiac catheterization that revealed MV CAD.
-Telemetry reviewed by me and patient remains in SR without ventricular ectopy.
-ECG reviewed by me is SR with evolution of PA
-Chest pain free on Nitro gtt at 35 mcg/min
-Heparin gtt running
-Cangrelor gtt was held for 1 hour on 01/19/2025 AM to check TEG scan and was then resumed with the plan to continue until planned surgery
-Aspirin 81 mg daily as ordered
-Pending results of TEG scan patient could be scheduled for CABG at the end of this week or next week
-Troponin peaked at 12
-Toprol-XL 25 mg daily as ordered, patient says that she 'hates' metoprolol, but has been taking doses thus far
-LDL 92. Patient was not taking a statin prior to admission. Atorvastatin 80 mg daily is ordered and patient taking all doses thus far
-Patient noted to be hyperglycemic, HgbA1c 5.9% which is consistent with prediabetes
-Hold off on cardiac rehab until patient is revascularized
-Patient has no plans on quitting smoking at this time
-Potassium is 3.6 and patient is refusing potassium supplementation while she is in the normal range. Will follow on telemetry and encourage increased dietary intake of potassium.
-Appreciate hospitalist input regarding abnormal TFTs with a history of hypothyroidism which appears to be linked to medication noncompliance. TSH was 21.2 and free T4 is low at 0.52. Synthroid 50 mcg ordered and patient is recommended to repeat
TSH and free T4 in 6 to 8 weeks
Progress Note - Buckle Stapler
Subjective
Date of Service: January 19, 2025
Denies chest pain
Objective
Labs:
01/19/25 03:47
01/19/25 03:47
Labs
Hgb 12.5 g/dL (12.0-16.0) 01/19/25 03:47
Hct 37.4 % (37.0-47.0) 01/19/25 03:47
Plt Count 174 10^3/uL (130-400) 01/19/25 03:47
PT 14.8 Sec (11.4-14.6) H 01/19/25 03:47
INR 1.13 01/19/25 03:47
APTT 71.0 Sec (23.4-35.0) H 01/19/25 03:47
Sodium 137 mmol/L (135-145) 01/19/25 03:47
Potassium 3.6 mmol/L (3.5-5.1) 01/19/25 03:47
BUN 10 mg/dl (7-17) 01/19/25 03:47
Creatinine 0.5 mg/dL (0.6-1.0) L 01/19/25 03:47
Glucose 104 mg/dl (70-99) H 01/19/25 03:47
Troponins
01/17/25 01/17/25 01/18/25
22:15 23:28 00:12
Troponin I < 0.012 Cancelled 1.290 H* D
01/18/25 01/18/25 01/18/25
04:44 09:33 11:30
Troponin I 11.500 H* D 12.000 H* Cancelled
01/18/25 01/18/25
15:25 21:38
Troponin I 7.830 H* D 5.680 H* D
Vital Signs and I&O:
Vital Signs
Temp Pulse Resp BP Pulse Ox
98.2 F 67 7 115/71 95
01/19/25 04:00 01/19/25 07:00 01/19/25 00:00 01/19/25 07:00 01/19/25 06:12
Vital Signs
Temp Pulse Resp BP Pulse Ox
98.2 F 67 7 115/71 95
01/19/25 04:00 01/19/25 07:00 01/19/25 00:00 01/19/25 07:00 01/19/25 06:12
Intake & Output
01/17/25 01/18/25 01/19/25 01/20/25
06:59 06:59 06:59 06:59
Intake Total 193.6 / 193.6 379.3 / 379.3
Balance 193.6 / 193.6 379.3 / 379.3
Physical Exam
Physical Exam
GEN: Agitated during echo. AAO x3
HEENT: EOMI
LUNGS: RA. No wheeze
CV: SR on tele.
--- NOTE | 2025-01-19 09:00 | PTCARENOTE ---
Assumed care of patient. Walking rounds completed. Patient assessed while she was lying in bed. Pt alert and oriented x4. Pt denies pain, shortness of breath, and nausea. TINAJERO with equal strength, moves self around in bed easily. SR on tele with
rates in the 60s-70s. BP 127/88. Heart tones audible. Bilateral radial pulses palpable, bilateral DP pulses weakly palpable. No edema noted. POX 96% on RA. Lungs diminished in the bases. Occasional dry nonproductive cough noted. Abdomen soft, round,
nontender. +BS. Pt denies constipation. Pt voiding independently, reports no issues. Right radial cath site CDI. PIV x2 intact. Heparin gtt infusing at 1500units/hour. Nitro infusing at 35. Cangrelor on hold per orders. See MAR for medication
administration. See worklist for complete nursing assessment. Plan of care reviewed, patient requires significant education that she is not receptive to. Education provided on CT surgery prep including clipping, patient refusing, CT BUTCHER ASSISTANT notified.
Education provided on all medications ordered, patient refusing some medications, reiterated importance of taking medications as prescribed.
[2025-01-19] MEDS: PROTONIX PO (09:09)
[2025-01-19] MEDS: MAGNESIUM OXIDE PO ×2 (09:09→19:44)
[2025-01-19] MEDS: ASPIR LOW (ENTERIC COATED) 81 MG PO (09:10)
[2025-01-19] MEDS: TOPROL XL 25 MG PO (09:10)
[2025-01-19] MEDS: NITROGLYCERIN PREMIX 250 IV (09:22)
[2025-01-19 09:37] LABS: VerifyNow PRU 139 PRU (180-376)
[2025-01-19 10:55] LABS: APTT 71.8 Sec (23.4-35.0)
--- NOTE | 2025-01-19 11:12 | CM ---
spoke to pt in room, she is prev indep, lives withher grand daughter in a 2 story home with 2 steps toenter. she denies any dme's. 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 plan is for CABG this admission, cm following.
--- NOTE | 2025-01-19 11:42 | PTCARENOTE ---
Pt reassessed. VSS. Denies chest pain. Heparin and Nitro gtt continue to infuse.
--- NOTE | 2025-01-19 13:35 | W.PN.HOSP.TC ---
Today's Communication/Plan
-
Follow CT surgery recommendations
Assessment / Plan
Assessment / Plan
Impression:
Patient is 64 years old with history of coronary artery disease, hyperlipidemia, hypertension, hypothyroidism, COPD, medication noncompliance who came to the ER with chest pain.
Patient was stopped taking all her medications for last 15-month, in the ER patient noted to have STEMI, underwent cardiac cath which showed:
1. Multivessel coronary artery disease involving the mid LAD and trifurcation stenosis (Crenshaw 1,1,1) involving the mid circumflex, large OM 1 and moderate OM 2 as well as the PDA and posterolateral branch
2. Moderately reduced LV systolic function.
CT surgery consulted for CABG consideration.
Patient seen and examined at bedside, denies any chest pain or shortness of breath, no abdominal pain, no nausea, no vomiting, no diarrhea or constipation.
Consult for hospitalist medicine for hypothyroidism.
Assessment/plan:
STEMI
Status post cardiac cath shows:
1. Multivessel coronary artery disease involving the mid LAD and trifurcation stenosis (Crenshaw 1,1,1) involving the mid circumflex, large OM 1 and moderate OM 2 as well as the PDA and posterolateral branch
2. Moderately reduced LV systolic function.
CT surgery consulted for CABG consideration.
Continue metoprolol.
Continue heparin drip
History of hypothyroidism
TSH 21.2.
Free T4 0.52
Patient used to be on Synthroid but not sure about the dose.
She said it could be 100 mcg or 125 mcg.
Patient was not taking her Synthroid for more than a year.
Will resume Synthroid at 50 mcg daily.
Need to repeat TSH/free T4 in 6 to 8 weeks.
Prediabetes (HBA1C 5.9)
Diet and exercise
Lifestyle modification
No need to start antidiabetic medication
Patient used to be on Jardiance for cardiac indications which can be continued on discharge
History�of�hypertension
Not taking any home meds, continue metoprolol
History of hyperlipidemia
Not taking any home meds, continue atorvastatin
�
CODE STATUS:�Full�code
DVT�prophylaxis:�Heparin drip
Diet: cardiac�diet
Disposition: Possible OR tomorrow
Total time spent on today's encounter was 65 minutes which included time spent in counseling the patient/family regarding diagnosis and treatment plan as listed above, goals of care, and symptom management. Case was discussed with nursing staff,
specialists, and care coordinators/case management. All labs and imaging personally reviewed by me. Remainder the time spent in detailed review of previous records, lab data, imaging, and other medical provider documentation.
Anticipated Discharge: > 48 hours
Subjective/Interval History
-
Date of Service: January 19, 2025
Patient seen and examined at bedside, denies any chest pain or shortness of breath, no abdominal pain, no nausea, no vomiting, no diarrhea or constipation.
Objective Data
-
Labs:
Laboratory Results
01/19/25 01/19/25 01/19/25
03:47 10:30 17:15
WBC 9.0
Hgb 12.5
Hct 37.4
Plt Count 174
PT 14.8 H
INR 1.13
APTT 71.0 H 71.8 H Pending
Sodium 137
Potassium 3.6
Chloride 108 H
Carbon Dioxide 25
BUN 10
Creatinine 0.5 L
Glucose 104 H
Calcium 8.2 L
Total Bilirubin 0.9
AST 43 H
ALT 28
Alkaline Phosphatase 122
Vital Signs:
Vital Signs
Temp Pulse Resp BP Pulse Ox
98.3 F 66 16 113/69 96
01/19/25 11:20 01/19/25 11:20 01/19/25 11:20 01/19/25 11:20 01/19/25 11:20
I&O
01/18/25 01/19/25 01/20/25
06:59 06:59 06:59
Intake Total 193.6 / 193.6 379.3 / 379.3 341.5 / 341.5
Balance 193.6 / 193.6 379.3 / 379.3 341.5 / 341.5
Physical Exam
-
General: Well Developed, Well Nourished, No Apparent Distress and Comfortable
HEENT: Normocephalic, Atraumatic, Moist Mucous Membranes, No Ptosis, PERRLA and Nose Appears Normal
Respiratory: Clear to Auscultation and Non Labored Respirations
Cardiac: Regular Rhythm and S1/S2
Breast: Deferred by me
GI: Soft, Nontender, Nondistended and Normal Bowel Sounds
Genito-urinary: No Costovertebral Tender
Musculoskeletal: No Clubbing, No Cyanosis and No Edema
Skin: Warm
Neuro: Awake, Alert, Oriented, AO x 3 and No Motor Deficits
Psych: Calm
Data Reviewed
-
Diagnostic Radiology: Image personally visualized and interpreted and Report Reviewed by me
CT Scan: Image personally visualized and interpreted and Report Reviewed by me
Ultrasound: Image personally visualized and interpreted and Report Reviewed by me
MRI: Image personally visualized and interpreted and Report Reviewed by me
Medical Tests (Nuc Med, Echo etc): Image personally visualized and interpreted and Report Reviewed by me
Labs: Labs Reviewed by me
Old Records: Reviewed
[2025-01-19 13:52] LABS: VerifyNow PRU 152 PRU (180-376)
--- NOTE | 2025-01-19 15:37 | CM ---
spoke to pt, daughter and grand daughter in room, we discussed preop teaching for CABG. she lives with her grand daughter in a 2 story home with 2 steps to enter. she denies any dme's. she has the cardiac surgery educ book. she is agreeable to a
f/u visit from the ct transitional care nurse after dc. plan si for CABG wednesday 01/24, cm role explained and all questions answered.
[2025-01-19] MEDS: HEPARIN 25000 UNITS/250 ML IV (16:44)
--- NOTE | 2025-01-19 16:45 | PTCARENOTE ---
Pt reassessed. VSS. POX 95% on RA. Right radial cath site stable. Heparin and nitro gtts continue to infuse. Pt independent in the room. Reports no issues urinating. Informed patient of room change.
--- NOTE | 2025-01-19 16:53 | W.PN.UPDATE ---
Update Note
Progress Note Update
TEG and P2y12 results show that there is till platelet inhibition from brilinta. Patient is scheduled for CABG for friday. Patient is aware and agreeable to plan currently. Cangrelor will be discontinued. Cont heparin and ntg
infusion. Continue ongoing CT surgery work up and monitoring for chest pain.
Josefa ALICEA
Cardiac Surgery
[2025-01-19] MEDS: LIPITOR PO (16:58)
--- NOTE | 2025-01-19 17:30 | PTCARENOTE ---
Received from [facility], VSS, monitor showing SR. Hep/NTG drips infusing without difficulty. Denies chest pain at present. Right radial site RAO, scabbed, no bleeding, no hematoma noted. Oriented to room, call ibarra in reach.
[2025-01-19 17:39] LABS: APTT 80.2 Sec (23.4-35.0)
[2025-01-19] MEDS: REMOVE NICOTINE PATCH REMOVE (22:50)
[2025-01-19] MEDS: MELATONIN 10 MG PO (22:51)
[2025-01-19] MEDS: XANAX 0.5 MG PO (22:51)
[2025-01-19 23:54] LABS: APTT 98.7 Sec (23.4-35.0)
[2025-01-20] VITALS (7 sets, daily range): BP systolic 101–137; BP diastolic 53–81; BMI 34.3
--- NOTE | 2025-01-20 00:48 | PTCARENOTE ---
Assumed care of patient at change of shift. Pt AAOx3, VSS, sating 95-97% RA. Tele remains NSR, HR 60-70's. Denies any chest discomfort or SOB. Right radial site RAO, no hematoma present at this time. Pt ambulates self in room, denies any dizziness.
IV Heparin gtt infusing at 1600 units/hr, and IV Nitro gtt infusing at 25mcg/min. PTT therapeutic x2, next ptt due at 06:00. Call ibarra in reach.
[2025-01-20] MEDS: SYNTHROID 50 MCG PO (04:44)
[2025-01-20 04:57] LABS: APTT 84.3 Sec (23.4-35.0)
[2025-01-20 05:20] LABS: ALT (SGPT) 25 U/L (0-35); AST (SGOT) 24 U/L (14-36); Albumin 3.3 g/dl (3.5-5.0); Alkaline Phosphatase 113 U/L (38-126); Blood Urea Nitrogen 9 mg/dl (7-17); Calcium 8.6 mg/dl (8.4-10.2); Carbon Dioxide 25 mmol/L (22-30); Chloride 107 mmol/L (98-107); Estimated Creatinine Clearance 108 ml/min; Glucose 102 mg/dl (70-99); Potassium 4.0 mmol/L (3.5-5.1); Sodium 136 mmol/L (135-145); Total Protein 5.8 g/dl (6.3-8.2); eGFR > 60.00
--- NOTE | 2025-01-20 08:36 | W.PN.HOSP.TC ---
Today's Communication/Plan
-
Plan for CABG on Friday
Assessment / Plan
Assessment / Plan
Impression:
Patient is 64 years old with history of coronary artery disease, hyperlipidemia, hypertension, hypothyroidism, COPD, medication noncompliance who came to the ER with chest pain.
Patient was stopped taking all her medications for last 15-month, in the ER patient noted to have STEMI, underwent cardiac cath which showed:
1. Multivessel coronary artery disease involving the mid LAD and trifurcation stenosis (Crenshaw 1,1,1) involving the mid circumflex, large OM 1 and moderate OM 2 as well as the PDA and posterolateral branch
2. Moderately reduced LV systolic function.
CT surgery consulted for CABG consideration.
Patient seen and examined at bedside, denies any chest pain or shortness of breath, no abdominal pain, no nausea, no vomiting, no diarrhea or constipation.
Consult for hospitalist medicine for hypothyroidism.
Plan for CABG on Friday
Assessment/plan:
STEMI
Status post cardiac cath shows:
1. Multivessel coronary artery disease involving the mid LAD and trifurcation stenosis (Crenshaw 1,1,1) involving the mid circumflex, large OM 1 and moderate OM 2 as well as the PDA and posterolateral branch
2. Moderately reduced LV systolic function.
CT surgery consulted for CABG consideration.
Continue metoprolol.
Continue heparin drip
History of hypothyroidism
TSH 21.2.
Free T4 0.52
Patient used to be on Synthroid but not sure about the dose.
She said it could be 100 mcg or 125 mcg.
Patient was not taking her Synthroid for more than a year.
Will resume Synthroid at 50 mcg daily.
Need to repeat TSH/free T4 in 6 to 8 weeks.
Prediabetes (HBA1C 5.9)
Diet and exercise
Lifestyle modification
No need to start antidiabetic medication
Patient used to be on Jardiance for cardiac indications which can be continued on discharge
History�of�hypertension
Not taking any home meds, continue metoprolol
History of hyperlipidemia
Not taking any home meds, continue atorvastatin
Nicotine abuse.
Nicotine patches ordered
�
CODE STATUS:�Full�code
DVT�prophylaxis:�Heparin drip
Diet: cardiac�diet
Disposition: Plan for CABG on Friday
Total time spent on today's encounter was 65 minutes which included time spent in counseling the patient/family regarding diagnosis and treatment plan as listed above, goals of care, and symptom management. Case was discussed with nursing staff,
specialists, and care coordinators/case management. All labs and imaging personally reviewed by me. Remainder the time spent in detailed review of previous records, lab data, imaging, and other medical provider documentation.
Anticipated Discharge: > 48 hours
Subjective/Interval History
-
Date of Service: January 20, 2025
Patient seen and examined at bedside, denies any chest pain or shortness of breath, no abdominal pain, no nausea, no vomiting, no diarrhea or constipation.
Objective Data
-
Labs:
Laboratory Results
01/19/25 01/20/25
23:35 04:29
APTT 98.7 H 84.3 H
Sodium 136
Potassium 4.0
Chloride 107
Carbon Dioxide 25
BUN 9
Creatinine 0.5 L
Glucose 102 H
Calcium 8.6
Total Bilirubin 0.6
AST 24
ALT 25
Alkaline Phosphatase 113
Vital Signs:
Vital Signs
Temp Pulse Resp BP Pulse Ox
98.6 F 62 20 105/71 94
01/20/25 07:12 01/20/25 06:00 01/20/25 07:12 01/20/25 04:17 01/20/25 07:12
I&O
01/19/25 01/20/25 01/21/25
06:59 06:59 06:59
Intake Total 379.3 / 379.3 1024.3 / 1024.3
Balance 379.3 / 379.3 1024.3 / 1024.3
Physical Exam
-
General: Well Developed, Well Nourished, No Apparent Distress and Comfortable
HEENT: Normocephalic, Atraumatic, Moist Mucous Membranes, No Ptosis, PERRLA and Nose Appears Normal
Respiratory: Clear to Auscultation and Non Labored Respirations
Cardiac: Regular Rhythm and S1/S2
Breast: Deferred by me
GI: Soft, Nontender, Nondistended and Normal Bowel Sounds
Genito-urinary: No Costovertebral Tender
Musculoskeletal: No Clubbing, No Cyanosis and No Edema
Skin: Warm
Neuro: Awake, Alert, Oriented, AO x 3 and No Motor Deficits
Psych: Calm
[2025-01-20] MEDS: TOPROL XL 25 MG PO (08:57)
[2025-01-20] MEDS: ASPIR LOW (ENTERIC COATED) 81 MG PO (08:57)
[2025-01-20] MEDS: MAGNESIUM OXIDE PO ×2 (08:57→21:46)
[2025-01-20] MEDS: PROTONIX 40 MG PO (08:57)
[2025-01-20] MEDS: CRESTOR 40 MG PO (09:00)
[2025-01-20] MEDS: HEPARIN 25000 UNITS/250 ML IV (09:04)
--- NOTE | 2025-01-20 09:11 | W.PN.CARDCBS ---
Addendum entered and electronically signed by Bradly Herring MD 01/20/25 11:44:
64-year-old woman who presented with anterior ST segment elevation PR 915, with multivessel CAD tentatively scheduled for CABG on 01/24/2025 (received Brilinta). Peak troponin 12
PMH: CAD/PR, Xience stent to RCA 2013, ischemic cardiomyopathy, EF 40-45%, hypercholesterolemia, hypothyroidism, hyperglycemia/prediabetes, noncompliance
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
Meds: Reviewed. IV nitro, IV heparin, aspirin 81 mg a day, metoprolol ER 25 mg a day, pantoprazole, levothyroxine 50 mcg a day, magnesium oxide 400 twice daily, nicotine patch, rosuvastatin 40 mg a day
Rest of history as below. Reviewed in detail and agree unless otherwise specified
128/69, pulse 62, respiratory rate 20, afebrile, weight is 93.6 kg sleeping, does not change position upon awakening, offers no complaints, lungs clear regular rate and rhythm, not much edema
CT chest moderate atherosclerotic disease, possible adrenal hyperplasia, possible hepatic mass
PTT 84, BUN and creatinine are 9 and 0.5, potassium is 4
ECG yesterday sinus rhythm, dramatic anterolateral T wave inversions with QT prolongation
Impression:
Recent ST segment elevation PR with multivessel CAD
PR 2013 with RCA Xience V stent
Ischemic cardiomyopathy, EF 40-45%
Hypertension
Hypercholesterolemia
Hyperglycemia
Ongoing tobacco use
Noncompliance
Plan:
Currently undergoing Brilinta washout with tentative CABG for s January [address] of chest suggested possible 2.8 cm mass in right lobe of liver. Follow-up imaging was recommended. Will defer to hospitalist as to best approach.
Continue heparin, beta-phu, aspirin, rosuvastatin
Original Note:
Today's Communication / Plan
-
Tentatively plan for CABG Wednesday 01/24
Continue IV heparin, aspirin, toprol
Decrease IV nitro as able given patient dizziness
Transition Lipitor to Crestor at patient request
Impression / Plan
-
PCP: Dr. Raines
Card: Dr. Justin
Impression:
Admitted as STEMI alert 01/17/2025
AWMI 01/17/2025
MV CAD involving mid LAD and trifurcation stenosis of the mid circumflex, large OM1 and moderate OM 2 as well as the PDA and PLB by cardiac cath 01/18/2025
ICM EF 40 to 45% by echo 01/18/2025
CAD s/p PR and 3.5 mm Xience GREGG to the proximal to mid RCA 2013
Medication noncompliance, has intermittently stopped aspirin therapy
Active smoker
Hyperlipidemia with statin intolerance
Hypothyroidism with abnormal TFTs 01/18/2025
Hyperglycemia and prediabetes
Echo 12/21/2013: EF 55 to 60%, no WMA
Echo 01/18/2025: EF 40 to 45%, stage I diastolic dysfunction, normal RV size and function, no significant valve disease
Plan:
-Patient came to the ER late 01/17/25 with chest pain and ECG was concerning for anterior STEMI and was referred for urgent cardiac catheterization that revealed MV CAD.
-trop peaked at 12
-CT surgery work up ongoing, tentatively planned for CABG 01/24, Friday
-continue IV heparin, asa
-she reports dizziness on IV nitro gtt @25. ok to decrease as long as she remains CP free
-she reports significant myalgias on lipitor in past, is willing to try crestor. transitioned to crestor 40mg daily at her request
-also reports history of fatigue on metoprolol in past. she reports she tolerated bystolic without issues and would prefer to be on that as OP as possible
-HgbA1c 5.9% which is consistent with prediabetes
-Hold off on cardiac rehab until patient is revascularized
-Patient has no plans on quitting smoking at this time. continue nicotine patch
-Appreciate hospitalist input regarding abnormal TFTs with a history of hypothyroidism which appears to be linked to medication noncompliance. TSH was 21.2 and free T4 is low at 0.52. Synthroid 50 mcg ordered and patient is recommended to repeat
TSH and free T4 in 6 to 8 weeks
-d/w nursing
Progress Note - Cupola Repairer
Subjective
Date of Service: January 20, 2025
Denies chest pain, shortness of breath. Patient does report dizziness on IV nitro
Objective
Labs:
01/19/25 03:47
01/20/25 04:29
Labs
Hgb 12.5 g/dL (12.0-16.0) 01/19/25 03:47
Hct 37.4 % (37.0-47.0) 01/19/25 03:47
Plt Count 174 10^3/uL (130-400) 01/19/25 03:47
PT 14.8 Sec (11.4-14.6) H 01/19/25 03:47
INR 1.13 01/19/25 03:47
APTT 84.3 Sec (23.4-35.0) H 01/20/25 04:29
Sodium 136 mmol/L (135-145) 01/20/25 04:29
Potassium 4.0 mmol/L (3.5-5.1) 01/20/25 04:29
BUN 9 mg/dl (7-17) 01/20/25 04:29
Creatinine 0.5 mg/dL (0.6-1.0) L 01/20/25 04:29
Glucose 102 mg/dl (70-99) H 01/20/25 04:29
Troponins
01/17/25 01/17/25 01/18/25
22:15 23:28 00:12
Troponin I < 0.012 Cancelled 1.290 H* D
01/18/25 01/18/25 01/18/25
04:44 09:33 11:30
Troponin I 11.500 H* D 12.000 H* Cancelled
01/18/25 01/18/25
15:25 21:38
Troponin I 7.830 H* D 5.680 H* D
Vital Signs and I&O:
Vital Signs
Temp Pulse Resp BP Pulse Ox
98.6 F 62 20 105/71 94
01/20/25 07:12 01/20/25 06:00 01/20/25 07:12 01/20/25 04:17 01/20/25 07:12
Vital Signs
Temp Pulse Resp BP Pulse Ox
98.6 F 62 20 105/71 94
01/20/25 07:12 01/20/25 06:00 01/20/25 07:12 01/20/25 04:17 01/20/25 07:12
Intake & Output
01/18/25 01/19/25 01/20/25 01/21/25
07:59 07:59 07:59 07:59
Intake Total 193.6 / 206.6 379.3 / 399.6 1024.3 / 1024.3
Balance 193.6 / 206.6 379.3 / 399.6 1024.3 / 1024.3
Physical Exam
Physical Exam
GEN: No distress, awake, alert, oriented x3. Sitting in chair
HEENT: supple, anicteric, mmm, EOMI
LUNGS: CTA bilaterally, no wheezes/rales
CV: Reg, S1/S2, no murmur
ABD: soft, BS+, NT/ND
EXT: No cyanosis, clubbing, edema
NEURO: Gross non-focal
SKIN: Warm, pink, dry. No rash
[2025-01-20] MEDS: NICODERM TRANSDERMAL 21 MG TRANSDERM (09:47)
--- NOTE | 2025-01-20 09:49 | CM ---
Reviewed chart. Mrs. Hammond was transferred to IVU. Met with Mrs. Lancaster to review discharge plans. She states she is feeling okay. She is awaiting sugery. She states prior to admission she resides with her granddaughter in a two story home with two
steps to enter. She states she has a full flight of steps to get to bedroom/full bathroom. She states she has a powder room on the first floor. Prior to admission she was independent with ambulation and adls. She does not have any DME in the
home. She has a prescription plan. Medical work-up in progress. The discharge plan is to return home with her granddaughter and a home visit by the Transitional Care Nurse when medically stable.
--- NOTE | 2025-01-20 10:02 | PTCARENOTE ---
Assumed care. Patient in chair. Nitro gtt titrated to 20 mcg/min (3cc/hr), reported mild dizziness this morning from lying to sitting. Dizziness resolves if she sits for a few minutes, BP sitting 128/69. Refused Magnesium because it causes her loose
stools and Protonix PO. Heparin infusing per MAR. Plan of care reviewed, call ibarra in reach
--- NOTE | 2025-01-20 14:33 | W.PN.UPDATE ---
Addendum entered and electronically signed by NIXON Delacruz 01/20/25 17:06:
Repeat TEG showed improvement. Patient is now scheduled for CABG tomorrow with Dr. Blackwell
Original Note:
Update Note
Progress Note Update
Procedure Type:�Isolated CABG
Perioperative Outcome Estimate %
Operative Mortality 1.7%
Morbidity & Mortality 10.1%
Stroke 1.27%
Renal Failure 1%
Reoperation 2.78%
Prolonged Ventilation 6.82%
Deep Sternal Wound Infection 0.472%
Long Hospital Stay (>14 days) 4.53%
Short Hospital Stay (<6 days)* 40.9%
Clinical Summary
Planned Surgery: Isolated CABG, Urgent, First cardiovascular surgery
Demographics: 64 year old, female, 93.1kg, 165cm, BMI: 34.2 kg/m�
Lab Values: Creatinine: 0.5 mg/dL, Hematocrit: 40%, WBC Count: 9.9 10�/�L, Platelet Count: 971471 cells/�L
PreOp Medications: ADP Inhibitors <=5 days, ADP Inhibitors Discontinuation: 3 days
Substance Abuse: Current smoker, Alcohol use: <=1 drink/week
Risk Factors / Comorbidities: Hypertension
Pulmonary RF: Mild CLD
Cardiac Status: Ejection Fraction = 40%
Coronary Artery Disease: 3 vessels diseased, STEMI, SD: 1 to 7 Days
Valve Disease: Trivial/Trace AR
--- NOTE | 2025-01-20 15:13 | W.CVOR.SURPR ---
CVOR Surgeon Immed Pre Op
-
I have examined this patient prior to performance of the scheduled procedure.
The patient's condition is unchanged from the time of the dictated/written History and
Physical and the patient is able to undergo the scheduled procedure.
Have answered all her questions and gone through informed consent. Will plan on CABG x4 JOSEPH-LAD, L radial OMx2, RSVG PDA, BONITA E
--- NOTE | 2025-01-20 19:35 | PTCARENOTE ---
Report given to CVICU. Patient transferred to [facility]
--- NOTE | 2025-01-20 20:00 | PTCARENOTE ---
Assumed care of the patient from IVU RN. Patient oriented, TINAJERO, no focal deficits noted. SR on tele, heart tones audible, no edema, pulses palpable. Lungs dim at the bases, occ moist nonproductive cough, 96+% on RA. Abdomen SNT obese. Voiding
without difficulty into the toilet. Skin grossly intact. CHG shower performed, instructions given. Education regarding the post op period discussed at length, patient indicated understanding, assessment of needs ongoing. See nursing worklist for
additional interventions.
[2025-01-20] MEDS: MELATONIN PO (21:46)
[2025-01-20] MEDS: XANAX 0.5 MG PO (21:58)
[2025-01-20] MEDS: REMOVE NICOTINE PATCH 1 PATCH REMOVE (21:59)
[2025-01-21] VITALS (15 sets, daily range): BP systolic 88–138; BP diastolic 59–85; PULSE 2–88; BMI 34.3
--- NOTE | 2025-01-21 | PTCARENOTE ---
Patient c/o 06/14 CP, let out a belch, and stated her CP resolved. CVPA aware. See EKG. Nitro maintained. No other issues, VSS.
[2025-01-21] MEDS: HEPARIN 25000 UNITS/250 ML IV (00:59)
--- NOTE | 2025-01-21 04:00 | PTCARENOTE ---
No acute changes, patient sleeping between care. VSS
[2025-01-21 05:14] LABS: Hematocrit 39.7 % (37.0-47.0); Hemoglobin 13.0 g/dL (12.0-16.0); Mean Corp Hgb Conc. 32.7 g/dL (33.0-37.0); Mean Corpuscular Volume 86.5 fL (81.0-99.0); Platelet Count 178 10^3/uL (130-400); Red Cell Dist. Width 14.9 % (11.5-14.5)
[2025-01-21] MEDS: SYNTHROID 50 MCG PO (05:18)
[2025-01-21 05:20] LABS: APTT 68.1 Sec (23.4-35.0)
[2025-01-21] MEDS: PROTONIX 40 MG PO (05:23)
[2025-01-21] MEDS: MAGNESIUM OXIDE 400 MG PO (05:23)
[2025-01-21] MEDS: BACTROBAN 2% OINTMENT 1 APPLIC NASAL ×2 (05:23→20:38)
[2025-01-21] MEDS: LOPRESSOR 12.5 MG PO (05:35)
[2025-01-21] MEDS: MAGNESIUM OXIDE PO ×2 (05:36→20:37)
[2025-01-21] MEDS: TOPROL XL PO (05:36)
[2025-01-21] MEDS: ASPIR LOW (ENTERIC COATED) PO (05:36)
[2025-01-21] MEDS: PROTONIX PO (05:36)
[2025-01-21 07:29] LABS: ACT+ - POC 134 Seconds (82-134)
[2025-01-21 07:53] LABS: Urine Character Slightly Cloudy (Clear)
[2025-01-21 07:56] LABS: Urine Squamous Cell >30 /LPF (Few)
[2025-01-21 09:42] LABS: ACT+ - POC 488 Seconds (82-134)
[2025-01-21 10:17] LABS: B.E. - POC -0.9 mmol/L; Glucose - POC 105 mg/dl (70-99); HCO3 - POC 25 mmol/L (21-28); Hematocrit - POC 36 % PCV (37-47); Hemodilution- POC No; Hemoglobin Calculated - POC 12.1; Ionized Calcium - POC 1.20 mmol/L (1.15-1.33); Lactate - POC 0.56 mmol/L (0.36-0.75); O2 Saturation %Calculated-POC 99.9 % (94-98); PCO2 - POC 46 mmHg (35-48); PO2 - POC 281 mmHg (83-108); POC Comment PRE; Potassium - POC 3.7 mmol/L (3.5-5.1); Sodium - POC 140 mmol/L (136-145); Specimen Type - POC Arterial; pH - POC 7.35 (7.35-7.45)
[2025-01-21 10:26] LABS: ACT+ - POC 555 Seconds (82-134)
[2025-01-21 10:38] LABS: B.E. - POC 4.8 mmol/L; Glucose - POC 106 mg/dl (70-99); HCO3 - POC 32 mmol/L (21-28); Hematocrit - POC 28 % PCV (37-47); Hemodilution- POC Yes; Hemoglobin Calculated - POC 9.6; Ionized Calcium - POC 1.02 mmol/L (1.15-1.33); Lactate - POC 0.91 mmol/L (0.36-0.75); O2 Saturation %Calculated-POC 99.9 % (94-98); PCO2 - POC 59 mmHg (35-48); PO2 - POC 365 mmHg (83-108); POC Comment CPB; Potassium - POC 4.4 mmol/L (3.5-5.1); Sodium - POC 140 mmol/L (136-145); Specimen Type - POC Arterial; pH - POC 7.34 (7.35-7.45)
[2025-01-21 10:54] LABS: ACT+ - POC 502 Seconds (82-134)
[2025-01-21 11:06] LABS: B.E. - POC 3.2 mmol/L; Glucose - POC 134 mg/dl (70-99); HCO3 - POC 27 mmol/L (21-28); Hematocrit - POC 28 % PCV (37-47); Hemodilution- POC Yes; Hemoglobin Calculated - POC 9.6; Ionized Calcium - POC 0.97 mmol/L (1.15-1.33); Lactate - POC 1.67 mmol/L (0.36-0.75); O2 Saturation %Calculated-POC 100.0 % (94-98); PCO2 - POC 36 mmHg (35-48); PO2 - POC 367 mmHg (83-108); POC Comment CPB; Potassium - POC 5.0 mmol/L (3.5-5.1); Sodium - POC 137 mmol/L (136-145); Specimen Type - POC Arterial; pH - POC 7.49 (7.35-7.45)
[2025-01-21 11:22] LABS: ACT+ - POC 631 Seconds (82-134)
[2025-01-21 11:36] LABS: B.E. - POC 1.9 mmol/L; Glucose - POC 145 mg/dl (70-99); HCO3 - POC 26 mmol/L (21-28); Hematocrit - POC 27 % PCV (37-47); Hemodilution- POC Yes; Hemoglobin Calculated - POC 9.1; Ionized Calcium - POC 1.01 mmol/L (1.15-1.33); Lactate - POC 1.46 mmol/L (0.36-0.75); O2 Saturation %Calculated-POC 99.6 % (94-98); PCO2 - POC 40 mmHg (35-48); PO2 - POC 176 mmHg (83-108); POC Comment WARM; Potassium - POC 5.1 mmol/L (3.5-5.1); Sodium - POC 141 mmol/L (136-145); Specimen Type - POC Arterial; pH - POC 7.43 (7.35-7.45)
--- NOTE | 2025-01-21 11:37 | CM ---
pt in nOR today, cm to follow.
[2025-01-21 12:02] LABS: B.E. - POC 1.5 mmol/L; Glucose - POC 153 mg/dl (70-99); HCO3 - POC 26 mmol/L (21-28); Hematocrit - POC 32 % PCV (37-47); Hemodilution- POC Yes; Hemoglobin Calculated - POC 11.0; Ionized Calcium - POC 1.01 mmol/L (1.15-1.33); Lactate - POC 2.71 mmol/L (0.36-0.75); O2 Saturation %Calculated-POC 99.7 % (94-98); PCO2 - POC 40 mmHg (35-48); PO2 - POC 201 mmHg (83-108); POC Comment CPB; Potassium - POC 5.1 mmol/L (3.5-5.1); Sodium - POC 141 mmol/L (136-145); Specimen Type - POC Arterial; pH - POC 7.43 (7.35-7.45)
[2025-01-21 12:07] LABS: ACT+ - POC 123 Seconds (82-134)
[2025-01-21 12:54] LABS: B.E. - POC -2.8 mmol/L; Glucose - POC 144 mg/dl (70-99); HCO3 - POC 22 mmol/L (21-28); Hematocrit - POC 32 % PCV (37-47); Hemodilution- POC Yes; Hemoglobin Calculated - POC 10.7; Ionized Calcium - POC 1.31 mmol/L (1.15-1.33); Lactate - POC 3.10 mmol/L (0.36-0.75); O2 Saturation %Calculated-POC 98.1 % (94-98); PCO2 - POC 39 mmHg (35-48); PO2 - POC 109 mmHg (83-108); POC Comment POST; Potassium - POC 4.2 mmol/L (3.5-5.1); Sodium - POC 139 mmol/L (136-145); Specimen Type - POC Arterial; pH - POC 7.37 (7.35-7.45)
[2025-01-21 13:39] LABS: Glucose - Point of Care 172 mg/dl (70-99)
--- NOTE | 2025-01-21 13:39 | CON.INTV ---
Consultation
Consultation Request
Date/Time Consultation Requested: 01/21/2025
Date/Time Consultation Performed: 01/21/2025
Medical History
-
Chief Complaint: Chest pain
History of Present Illness:
Patient is a 64-year-old female who presented with a ST elevation DE on 01/17 and was admitted to hospitalist service. Patient was evaluated by cardiology service and was taken to Slicer Machine Operator and was noted to have extensive multivessel coronary artery
disease. Patient has known prior history of coronary artery disease and PCI in 2013, medical noncompliance as well as ongoing smoking, hypertension and hyperlipidemia. Patient was subsequently evaluated by cardiothoracic surgery. CABG was
recommended and patient was taken to the OR on 01/21. Postprocedure, she was admitted to cardiovascular ICU, currently intubated, mechanically ventilated and sedated. Staffing Recruiter consultation was requested for further input.
PAST MEDICAL HISTORY:
1. Coronary artery disease with prior inferior wall myocardial
infarction and stenting of the right coronary artery with a 3.5 x
33 mm Xience stent in 2013.
2. Hyperlipidemia.
3. Hypertension.
4. Hypothyroidism.
5. COPD.
6. Medical noncompliance: Patient stopped aspirin and most of her
outpatient medications.
SURGICAL HISTORY: Cholecystectomy.
SOCIAL HISTORY: The patient smokes somewhere between a half a pack
and a pack a day. She is , but has a daughter and son whom
she is in contact with. She consumes social quantity of alcohol
with maybe 1 or 2 drinks per week.
ALLERGIES: Narcotics with nausea, sulfa medications, and
penicillin.
Allergies / Home Medications
Allergies
Allergy/AdvReac Type Severity Reaction Status Date / Time
Penicillins Allergy Rash Verified 01/20/25 14:31
Sulfa (Sulfonamide Allergy Rash Verified 01/20/25 14:31
Antibiotics)
narcotics Allergy Nausea / Uncoded 08/19/20 10:49
Vomiting
Home Medications
�Medication �Instructions �Recorded �Confirmed �Last Taken �Type
aspirin 81 mg tablet,delayed 81 mg PO DAILY ##0 12/21/13 01/18/25 01/17/25 Rx
release
nitroglycerin 0.4 mg sublingual 0.4 mg sublingual [id number] PRN 12/21/13 01/18/25 01/17/25 Rx
tablet chest pain #30 tabs
albuterol sulfate 90 mcg/actuation 2 puff inhalation Q4HPRN PRN 07/08/14 01/18/25 10/17/24 Rx
aerosol inhaler (Proventil HFA) wheezing ##0
melatonin 10 mg tablet 20 mg PO HSPRN PRN Insomnia 01/18/25 01/18/25 01/16/25 History
Review of Systems
-
Unable to Obtain full review of systems at this time due to: Patient Intubation
Vitals / Labs / Diagnostic Testing
Vital Signs
Temp Pulse Resp BP Pulse Ox
98.3 F 64 16 121/80 96
01/21/25 04:44 01/21/25 05:35 01/21/25 04:44 01/21/25 05:35 01/21/25 04:44
Laboratory Results
01/21/25
04:54
APTT 68.1 H
Diagnostic Testing:
Physical Exam
-
HEENT: Normocephalic
Cardiovascular: S1/S2
Respiratory: Clear and Non-Labored Respirations
GI: Soft and Non Distended
Neurology: Other (Sedated)
Skin: Warm
General: Comfortable
Assessment
-
64-year-old female with acute myocardial infarction, multivessel coronary artery disease s/p coronary artery bypass graft, left atrial appendage exclusion POD # 0
Titrate off pressors per protocol, currently Levophed infusing at 1, MAP of 81, CVP around 17.
ECHO reviewed with reduced LVEF, 40 to 45%
PA catheter readings reviewed, 34/, mean 27
Management of chest tubes per primary service
Intubated/sedated, initiate SAT when able. Currently on Precedex, infusing at 0.5
Pain control
RASS goal of 0 to -1
Intubated for procedure, SBT trial when patient able to spontaneously breath
Current vent settings: SIMV, 500/14/40%/5 with a pressure support of 5
AB.37/39/109
CXR pending
Extubate per protocol
Maintain supplement oxygen as needed
Longstanding history of smoking, no obstruction noted on spirometry, mild restriction likely related to obesity. Needs outpatient follow-up with pulmonary clinic for further evaluation
Can add nebulizers if needed
Aspiration precautions
Encouraged incentive spirometry, OOB/ambulation/early mobility
Advance diet as tolerated following extubation
GI prophylaxis: Protonix
Monitor critical I/O's
Bond/chest tube output
Hb/platelets postoperatively, mild drift
Trend CBC for now
Can transfuse if indicated for Hb <7, plt <50 in surgical patients
DVT prophylaxis including SCDs
Insulin protocol initiated and ongoing
Transition to SQ/off as indicated per team
Other medical diagnoses:
- Acute DE with STEMI, 01/2025
- Hypertension, hyperlipidemia
- Hypothyroidism, elevated TSH, had not been taking thyroid replacement lately
- Prediabetes
- History of smoking. Will get additional detail once patient is extubated, awake and alert. Qualifies for low-dose CT scan screening for lung cancer, needs outpatient PFTs including lung volumes, diffusion capacity assessment on 6-minute walk
test.
Critical Care time [01] mins -- The patient is admitted for acute critical illness for the treatment of vital organ failure and/or prevention of further life-threatening conditions. Total care includes time spent in review of history, physical exam,
medications, hemodynamic/ventilator parameters, laboratory data, imaging and discussion with house staff, pharmacy, respiratory therapy, bilingual teacher assistant, and nursing
Data:
Spirometry 01/2025: Spirometry suggests restriction. There was no significant bronchodilator response. FVC 69% of predicted.
ECHO 01/2025: 1. Normal left ventricular size with mildly reduced left ventricular systolic function. Mid to apical anterior and anteroseptal hypokinesis. Estimated left ejection fraction is 40 to 45%. Stage I diastolic dysfunction, suggestive of
abnormal relaxation.
2. Normal right ventricular size and systolic function.
3. No significant valvular abnormalities.
4. No pericardial effusion.
5. Compared to prior echocardiogram from 2013, LV systolic function is mildly reduced now with mid to apical anterior and anterior septal hypokinesis.
LHC 01/2025: 1. Multivessel coronary artery disease involving the mid LAD and trifurcation stenosis (Crenshaw 1,1,1) involving the mid circumflex, large OM 1 and moderate OM 2 as well as the PDA and posterolateral branch
2. Moderately reduced LV systolic function
ABD US 01/2025: Hepatic fatty infiltration.
Mild hepatomegaly.
Echogenic hepatic mass suggestive of a benign hemangioma corresponding to recent CT finding.
Simple left renal cyst.
CT Chest 01/2025: No acute disease of the chest.
Overall moderate atherosclerotic vascular disease as described above.
Findings suggesting mild adrenal hyperplasia.
Possible hepatic mass. If not already known, confirmation 2by abdominal ultrasound or CT of the liver with and without IV contrast recommended.
Possible malalignment of the thoracic spine at 2 levels versus artifact due to patient motion. This could further be evaluated by plain film examination of the thoracic spine. New.
--- NOTE | 2025-01-21 13:44 | W.PN.UPDATE ---
Update Note
Progress Note Update
64-year-old female with a past medical history of CAD AND prior inferior NM status post stent to proximal RCA (2013), hypertension, and tobacco misuse, was admitted to [facility] ER o 01/17/25 with chest pain. EKG showed acute anterior STEMI. Patient was
loaded with Brilinta prior to going to the [facility]. LHC on 01/18 reported severe multivessel CAD involving the mid LAD and trifurcation stenosis involving the mid circumflex, large OM1 and moderate OM 2 and PDA and posterior lateral branch
with moderately reduced LV systolic function. Transitioned to Cangrelor which was discontinued on 01/19. TEG WNL on 01/20.
IV fluids: 1600
U.O.:� 600
Blood:� 1 pool plts
Wires:� V-wires
Drips: Dobut @ 2, Levo @ 2, precedex, Insulin
�
NEURO: sedated, pupils +2mm B/L
RESP: #8OT @23cm> 500/40%/14/5. Lungs clear B/L. 2 mediastinal (40cc on arrival) and L pleural (0cc on arrival) chest tubes to -20cm suction. Sanguineous drainage
CV: RRR +S1, S2, no S3, no�rub, no murmur. Dermabond to median sternotomy. RIJ w/Stanfield locked @ 40cm. PA 36/20; CVP 16
ABD: large, soft, no BS
EXT: no edema, +2/4 DP pulses B/L, no femoral bruit, RLE and LUE (radial exploration-not used) JOSE ENRIQUE wrap intact; right radial A-line intact
: Bond with clear yellow urine
�
A/P: POD #0 s/p CABG x 4 (JOSEPH to LAD, SVG to OM1 & OM3 in sequence, SVG to PLB), Left atrial appendage #35mm atrial clip
YASMANY: EF�50-55%
- wean and extubate
- insulin x 24h
# CAD/preop STEMI
- will require ASA/Plavix, statin, beta-phu, + ACEi/ARB
�
# acute surgical blood loss anemia-expected
- trend CBC
�
#�Class II Obesity (BMI 34.3)/Pre-diabetes (A1C 5.9)
- cholesterol lowering/1800cal diet
# Hypothyroidism (TSH 21.2), T4 0.5
- started on Synthroid 50mcg/d
- F/U with PCP in 4-6 weeks
�
# Tobacco abuse
- assess need for Nicotine patch
- lifelong tobacco cessation
[2025-01-21 13:46] LABS: B.E. -1.0 mmol/L; HCO3 24.8 mmol/L (21-28); Hematocrit 32.3 % (37.0-47.0); Hemoglobin 10.7 g/dL (12.0-16.0); O2 Saturation % 98.1 % (94-98); PCO2 45 mmHg (32-35); PO2 108 mmHg (83-108); Platelet Count 166 10^3/uL (130-400); Potassium 4.7 mMOL/L (3.5-5.1); Sodium 136 mMOL/L (136-145)
--- NOTE | 2025-01-21 13:54 | W.PN.CARDCBS ---
Addendum entered and electronically signed by Bradly Herring MD 01/21/25 19:59:
Patient seen postop. Drips at the time of the evaluation included insulin, Precedex, and low-dose dobutamine, intubated, sedated, comfortable
Data reviewed, ECG without acute changes, chest x-ray satisfactory
Hemodynamics stable and satisfactory
Clear lungs, incision intact, no edema
Impression:
CABG x 4 with left atrial appendage clip 01/21/2025
See below. Reviewed in detail and agree, unless otherwise specified
Plan:
Doing well immediately postop
Appreciate efforts of CT surgical team
We will continue to follow.
Original Note:
Today's Communication / Plan
-
Continue postoperative care
In sinus rhythm
Impression / Plan
-
PCP: Dr. Raines
Card: Dr. Justin
Impression:
Admitted as STEMI alert 01/17/2025
AWMI 01/17/2025
MV CAD involving mid LAD and trifurcation stenosis of the mid circumflex, large OM1 and moderate OM 2 as well as the PDA and PLB by cardiac cath 01/18/2025
s/p In situ JOSEPH to LAD, Ao to RSVG to OM1�OM3 in sequence, Ao to RSVG to PLB, BONITA clip 01/21/25
ICM EF 40 to 45% by echo 01/18/2025
CAD s/p PR and 3.5 mm Xience GREGG to the proximal to mid RCA 2013
Medication noncompliance, has intermittently stopped aspirin therapy
Active smoker
Hyperlipidemia with statin intolerance
Hypothyroidism with abnormal TFTs 01/18/2025
Hyperglycemia and prediabetes
Echo 12/21/2013: EF 55 to 60%, no WMA
Echo 01/18/2025: EF 40 to 45%, stage I diastolic dysfunction, normal RV size and function, no significant valve disease
Plan:
- She presented with chest pain and EKG concerning for anterior STEMI status post urgent cardiac cath showing multivessel CAD. Troponin peaked at 12. Referred for CABG evaluation
- s/p In situ JOSEPH to LAD, Ao to RSVG to OM1�OM3 in sequence, Ao to RSVG to PLB, BONITA clip 01/21/25
- On Cardene at 2.5, dobutamine at 1. CI 1.49
- In sinus rhythm with evolving anterior infarct by review of postop EKG
- Hemoglobin 10.7, platelets 166K. Status post 1U plts intraop. asa and plavix post op
- she reports significant myalgias on lipitor in past, willing to try crestor. transitioned to crestor 40mg daily at her request
- also reports history of fatigue on metoprolol in past. she reports she tolerated bystolic without issues and would prefer to be on that as OP if possible
- HgbA1c 5.9%, prediabetic
- cardiac rehab
- continue nicotine patch
- Appreciate hospitalist input regarding abnormal TFTs with a history of hypothyroidism which appears to be linked to medication noncompliance. TSH was 21.2 and free T4 is low at 0.52. Synthroid 50 mcg ordered and patient is recommended to repeat
TSH and free T4 in 6 to 8 weeks
- d/w nursing
Progress Note - Hot Bread Baker
Subjective
Date of Service: January 21, 2025
Intubated, sedated
Objective
Labs:
Labs
Hgb 10.7 g/dL (12.0-16.0) L 01/21/25 13:36
Hct 32.3 % (37.0-47.0) L 01/21/25 13:36
Plt Count 166 10^3/uL (130-400) 01/21/25 13:36
PT 14.8 Sec (11.4-14.6) H 01/19/25 03:47
INR 1.13 01/19/25 03:47
APTT 68.1 Sec (23.4-35.0) H 01/21/25 04:54
Sodium 136 mmol/L (135-145) 01/20/25 04:29
Potassium 4.0 mmol/L (3.5-5.1) 01/20/25 04:29
BUN 9 mg/dl (7-17) 01/20/25 04:29
Creatinine 0.5 mg/dL (0.6-1.0) L 01/20/25 04:29
Glucose 102 mg/dl (70-99) H 01/20/25 04:29
Troponins
01/18/25 01/18/25
15:25 21:38
Troponin I 7.830 H* D 5.680 H* D
Vital Signs and I&O:
Vital Signs
Temp Pulse Resp BP Pulse Ox
97.6 F 69 14 121/80 94
01/21/25 13:38 01/21/25 13:40 01/21/25 13:40 01/21/25 05:35 01/21/25 13:40
Vital Signs
Temp Pulse Resp BP Pulse Ox
97.6 F 69 14 121/80 94
01/21/25 13:38 01/21/25 13:40 01/21/25 13:40 01/21/25 05:35 01/21/25 13:40
Intake & Output
01/19/25 01/20/25 01/21/25 01/22/25
07:59 07:59 07:59 07:59
Intake Total 379.3 / 399.6 1024.3 / 1024.3 65.6 / 65.6
Output Total 80 / 80
Balance 379.3 / 399.6 1024.3 / 1024.3 -14.4 / -14.4
Physical Exam
Physical Exam
GEN: No distress, intubated, sedated
HEENT: supple, mmm
LUNGS: CTA bilaterally, no wheezes/rales
CV: Reg, S1/S2, no murmur
ABD: soft, ND
EXT: No cyanosis, clubbing, edema
NEURO: Sedated
SKIN: Warm, pink, dry. No rash. Sternotomy incision clean dry and intact. Chest tubes in place.
[2025-01-21 13:56] LABS: INR 1.29; PT 16.4 Sec (11.4-14.6)
[2025-01-21 13:57] LABS: APTT 34.1 Sec (23.4-35.0)
--- NOTE | 2025-01-21 14:22 | W.PN.CT.SURG ---
CT Surgery Operative Note
-
CARDIAC SURGERY OPERATIVE REPORT
Preoperative Diagnosis: Multivessel Coronary Artery Disease prior PCI to RCA presented with anterior STEMI
Postoperative Diagnosis: Same
Procedure(s) Performed:
1. Standard Sternotomy with Aortic and Right Atrial Cannulation
2. Internal Mammary Artery Harvesting, Left in skeletonized fashion
3. Coronary artery bypass grafting x 4 (In situ JOSEPH to LAD, Ao to RSVG to OM1�OM3 in sequence, Ao to RSVG to PLB)
4. Endoscopic vein harvesting of right saphenous vein
5. Left atrial appendage exclusion with 35mm atrial clip serial #[id number]
6. Transesophageal echocardiography
7. Placement of Temporary Ventricular Pacing Wires
Date of Surgery: 01/21/2025
Comorbidities:
1. Hypertension
2. Hyperlipidemia
3. Hypothyroidism
4. COPD/active smoker
5. Medical noncompliance
Attending Surgeon: Jagruti Blackwell MD, MPH
Assistants: Suhail Johnson PA-C (present and necessary to first calender worker, endoscopic vein harvest, retraction, suction, exposure, suture management, and wound closure under my direction)
Anesthesiology: Luis Pichardo MD and Arlene Leach CRNA
Scrub and Circulating RNs: Sean Monsalve RN, Cee Carey RN
Bank Representative: Poli Escalante CCP
Anesthesia: GETA
EBL: per perfusion records
Products: 1 unit platelets
CPB Time: 105 minutes
Aortic Cross Clamp Time: 89 minutes
Indication(s) for Procedures: Ms. Mcclain is a 64-year-old female who presented with with acute anterior STEMI culprit lesion LAD on imaging noted to have recannulation after being loaded with Brilinta and aspirin. Has known history of prior coronary
artery disease with prior stent to RCA. Her cath was notable for severe stenosis in proximal LAD with JOHN II flow on imaging, proximal left circumflex disease with disease into branches of multiple OM's, and in-stent restenosis of RCA stents in
addition to significant distal disease within PDA and PLB branches. On initial TTE without notable valvular disease, EF 40 to 45%.
Conduit(s) Quality:
JOSEPH - excellent flow, good quality vessel
RSVG -good quality without significant sclerosis
Left radial artery was evaluated and attempted to harvest with scope however, the vessel was not of good quality and we aborted potential harvest.
Target(s) Quality:
RCA/PLB -decent sized distal target, 1 mm probe easily passed through however there is notable disease distal to anastomosis for the vessel is very tiny
OM -OM 1 and 3 were used as sequential targets, both were of excellent caliber 1.5 to 2 mm with good distal flow
LAD -large vessel at least 2 mm in size, anastomosed in the distal portion
Findings: Sophia catheter was placed given lower EF on preoperative imaging. IntraOp YASMANY on my review which did show slightly better squeeze than previously predicted at 50% and no anteroseptal hypokinesis. There was no significant valvular disease
however, there is notable significant mitral annular calcification on the posterior side and a ascending aorta of approximately 4.3 cm which is consistent with preoperative imaging. The JOSEPH was harvested in a skeletonized fashion with excellent
flow. Left ventricle notably boggy and thick with scarring noted along the apex on the left ventricular side consistent with anterior STEMI. Her posterior lateral branch was largest of terminal branches from RCA she did show good lumen however
distal to my anastomosis was significant plaque, but she will have good backfilling. OM 1 and 3 were in advantageous positioning for sequential grafting and both had very good targets and large lumen. We did look at diagonal branch for possible
bypass however this was a very small vessel and felt she was better served with 2 OM branches. The LAD was a long and large vessel with an excellent lumen. Her left atrial appendage was small, 35 mm clip was placed. Following bypass grafting, test
dose cardioplegia was given down each distal and confirmed patency and hemostasis. Each distal was probed both proximally and distally to confirm disease and patency, respectively.
Description of Procedure: The patient was taken to the operating room. Their identity and procedure to be performed were verified and they were positioned supine on the operating table. Induction via general anesthesia with endotracheal intubation
was performed and central venous access and arterial monitoring were inserted. A preoperative transesophageal echocardiogram was performed to assess cardiac function and valvular function. The patient was then prepped and draped from chin to feet in
a sterile fashion. A preoperative time-out was performed with all members of the team present. A midline chest incision was performed along with median sternotomy. Simultaneous endoscopic access of the right lower extremity for saphenous vein
harvest was obtained, in addition to left arm for radial harvest along with administration of an initial 5,000 units of IV heparin. A RulTract sternal retractor was positioned to exposure the left internal mammary bed. The mammary was harvested and
found to have good flow. A bulldog clamp was applied to the distal end of the mammary after dividing it. It was superficially sprayed with papaverine and replaced back into the left hemithorax. The RulTract was exchanged for a median sternal
retractor. The innominate vein was isolated. Full heparinization was given (a total of 45,000 units). We created a pericardial well. The aortic cannulation site was chosen where it was soft, pliable, and free of calcium. Cannulation was performed
with an arterial cannula in the ascending aorta and a triple-stage venous cannula through the right atrial appendage. The arterial cannula line had an appropriate bounce and correlating pressures with test dosing. Next, a root vent/antegrade cannula
was inserted into the ascending aorta. The ACT was confirmed to be over 400 and retrograde autologous priming was performed before commencing cardiopulmonary bypass. The pulmonary artery was away from the aorta to facilitate a clamp site.
The aortic cross-clamp was placed after decreasing the flow on the bypass and mean arterial pressure. A total of 1.2L initial dose of antegrade Del-Nido cardioplegia solution was given and planned for re-dosing every 75 minutes as necessary. There
was rapid electro-mechanical arrest of the heart at 320 cc of cardioplegia. The left ventricle was observed for distention on echocardiogram and manual palpation. Cold slush was placed into a sponge and topically on the RV while we systemically
cooled to 34 degrees centigrade.
I position the heart to expose the left atrial appendage and examined a size, a 35mm atrial clip was chosen and placed at the base of the left atrial appendage. I positioned the heart to expose the distal right coronary at the posterior lateral
branch after evaluating all distal branches of RCA and using the largest one. A redding blade was used to expose the coronary and perform the arteriotomy. Coronary Lisa scissors were used to enlarge the incision. The saphenous vein was trimmed and
beveled to an appropriate size. The distal anastomosis was performed using 7-0 prolene in an end-to-side fashion. Antegrade cardioplegia was administered into the graft. Appropriate hemostasis and flow were confirmed. The graft was measured for
length to the aorta and cut. A suitable site on the third obtuse marginal was chosen. We dissected and prepared the distal target in a similar fashion. An end-to-side anastomosis was created with a 7-0 prolene. Antegrade cardioplegia was
administered into the graft. Appropriate hemostasis and flow were confirmed. The graft was measured for length and found to be in appropriate position for a sequential to OM1. A suitable target on OM1 in good position for sequential was dissected
and prepared in similar fashion. A cbdi-pf-snsn anastomosis was created with 7-0 Prolene. Antegrade cardioplegia was administered into the graft while occluding the distal graft to the sequential target. Appropriate hemostasis and flow confirmed,
the occluded distal flow was then released and appropriate flow confirmed into the sequential arteries. A suitable target on the distal left anterior descending was identified. We dissected and prepared the distal target in a similar fashion. We
retrieved the JOSEPH from the chest and created a pericardial opening while being cognizant of the phrenic nerve to facilitate the course of the mammary. The distal end of the mammary was prepped and beveled to size. We verified orientation and length
of the SHANIKA and found brisk flow. An end-to-side anastomosis was created with a 7-0 prolene. We temporarily released the bulldog clamp on the mammary to inspect flow. Perfusion to the LAD territory was visualized and hemostasis was confirmed. The
bull clamp was replaced on the mammary. The heart was filled and the root was distended with antegrade cardioplegia to make final assessment of graft length and orientation. We created 2 aortotomies using a #11 blade then a 4.0mm aortic punch. The
proximal anastomoses were created in an end-to-side fashion using 6-0 prolene. At the the same time, we re-warmed to 36.5 degrees centigrade. The bulldog clamp was removed from the mammary. Temporary bipolar ventricular pacing wires were placed on
the base of the right ventricle. The patient was placed in a Trendelenburg position and flows on bypass were lowered. The aortic cross clamp was removed and flows were slowly brought back up. A 30-gauge needle was used to de-air the vein grafts. All
bypass grafts were inspected and were free from kinking or twisting. The distal and proximal anastomoses appeared hemostatic. Once transesophageal echocardiography appeared satisfactory for de-airing, the flows were temporarily lowered for root
vent removal. After verifying acceptable parameters, we initiated weaning from cardiopulmonary bypass. Once we were off cardiopulmonary bypass, the venous cannula was clamped and removed. A test dose of protamine was administered and the patient was
monitored for any adverse reaction before resuming protamine. Once half of the protamine dose was delivered, pump suckers were turned off and the systolic blood pressure was lowered for aortic decannulation. The aortic cannula was removed and
pursestrings were tied down. All cannulation sites were oversewn with a 4-0 prolene. The mammary bed was inspected and hemostasis was confirmed. Once the mediastinum was hemostatic, 19Fr Billy drain was placed in the left pleural cavity and two 24Fr
Billy drains were placed within the pericardium. The sternum was approximated with 4 #7 single and 3 #8 double stainless steel wires. Fascia was approximated with #1 vicryl suture. The subcutaneous, dermis and epidermis were closed in layers in a
running fashion. The skin wound was cleansed and dressed.
All instrument, sponge, and needle counts were confirmed to be correct x 2 at the end of the operation. The patient was transferred to the cardiac intensive care unit in critical but stable condition.
I, Dr. Jagruti Blackwell, was present, scrubbed for, and performed all critical elements of this procedure.
Jagruti Blackwell MD, MPH
Cardiothoracic Surgeon
[facility]
This operative dictation was created using the [employer] dictation system. Please excuse any grammatical, typographical, or 'sound alike' errors
[2025-01-21] MEDS: DILAUDID 0.5 MG IV (14:27)
[2025-01-21 14:29] LABS: Blood Urea Nitrogen 10 mg/dl (7-17); Estimated Creatinine Clearance 108 ml/min; Glucose 165 mg/dl (70-99); Magnesium 2.6 mg/dl (1.6-2.3)
[2025-01-21] MEDS: CALCIUM GLUCONATE 100 IV ×2 (14:33→22:00)
--- NOTE | 2025-01-21 14:40 | PTCARENOTE ---
Assumed care of pt from CVOR ~1330. Pt intubated. Precedex infusing. SR on the tele monitor. HR 70-80s. V-wire intact and set to backup rate of 30. BP stable. Low dose levo briefly infusing upon arrival. PAPs 30s/teens-20s. CVP ~15. Initial CI 1.5.
Per Dr. Blackwell start dobutamine @3. Pt BP not tolerating that dose of dobutamine and required increase in Cardene. Dr. Blackwell and CTNP aware - okay to put dobutamine to 1. Pt w/ 8.0 ETT, 21 cm R lip. See worklist for full vent settings. FiO2 40%. POX
94-97%. Breath sounds present and equal anteriorly. Mediastinal CTx2 and L pleural CT to -20 suction / no airleaks noted at this time. L pleural CT oozy around site. Stitch placed by CTPA. Abdomen round. Hypoactive BS. Bond catheter intact and
draining yellow urine. Left radial site intact and covered by JOSE ENRIQUE. Right groin site approximated and SUBSTATION OPERATOR CONVERSION. Right leg site intact and covered w/ JOS EENRIQUE. Sternal incision approximated and SUBSTATION OPERATOR CONVERSION. Right IJ cordis w/ swan, right radial a-line, and PIVx1
intact. All lines leveled, zeroed, and flushed. Bond care, mouth care, EKG, and xray completed. Glycemic protocol followed. See worklist for full nursing assessment and interventions.
[2025-01-21 14:44] LABS: Glucose - Point of Care 154 mg/dl (70-99)
[2025-01-21] MEDS: ANCEF 10 IV ×2 (14:54)
[2025-01-21] MEDS: NEURONTIN PO ×3 (14:55→21:56)
[2025-01-21] MEDS: CRESTOR PO (14:55)
[2025-01-21] MEDS: NICODERM TRANSDERMAL TRANSDERM (14:55)
[2025-01-21] MEDS: NSS 500 IV (14:56)
--- NOTE | 2025-01-21 15:06 | W.PN.HOSP.TC ---
Today's Communication/Plan
-
Continue management in the ICU
Assessment / Plan
Assessment / Plan
Impression:
Patient is 64 years old with history of coronary artery disease, hyperlipidemia, hypertension, hypothyroidism, COPD, medication noncompliance who came to the ER with chest pain.
Patient was stopped taking all her medications for last 15-month, in the ER patient noted to have STEMI, underwent cardiac cath which showed:
1. Multivessel coronary artery disease involving the mid LAD and trifurcation stenosis (Crenshaw 1,1,1) involving the mid circumflex, large OM 1 and moderate OM 2 as well as the PDA and posterolateral branch
2. Moderately reduced LV systolic function.
CT surgery consulted for CABG consideration.
Patient seen and examined at bedside, denies any chest pain or shortness of breath, no abdominal pain, no nausea, no vomiting, no diarrhea or constipation.
Consult for hospitalist medicine for hypothyroidism.
Status post CABG January
Assessment/plan:
STEMI status post Cardiac cath shows multivessel disease/status post Quadruple bypass
Status post cardiac cath shows:
1. Multivessel coronary artery disease involving the mid LAD and trifurcation stenosis (Crenshaw 1,1,1) involving the mid circumflex, large OM 1 and moderate OM 2 as well as the PDA and posterolateral branch
2. Moderately reduced LV systolic function.
CT surgery consulted for CABG
Patient status post CABG on 01/21
Currently intubated and sedated in the ICU
Liver benign hemangioma
CT showed Possible hepatic mass.
Ultrasound showed: Echogenic hepatic mass suggestive of a benign hemangioma corresponding to recent CT finding
History of hypothyroidism
TSH 21.2.
Free T4 0.52
Patient used to be on Synthroid but not sure about the dose.
She said it could be 100 mcg or 125 mcg.
Patient was not taking her Synthroid for more than a year.
Will resume Synthroid at 50 mcg daily.
Need to repeat TSH/free T4 in 6 to 8 weeks.
Prediabetes (HBA1C 5.9)
Diet and exercise
Lifestyle modification
No need to start antidiabetic medication
Patient used to be on Jardiance for cardiac indications which can be continued on discharge
History�of�hypertension
Not taking any home meds, continue metoprolol
History of hyperlipidemia
Not taking any home meds, continue atorvastatin
Nicotine abuse.
Nicotine patches ordered
�
CODE STATUS:�Full�code
DVT�prophylaxis:�SCDs
Diet: NPO
Disposition: Continue management in the ICU post
Total time spent on today's encounter was 75 minutes which included time spent in counseling the patient/family regarding diagnosis and treatment plan as listed above, goals of care, and symptom management. Case was discussed with nursing staff,
specialists, and care coordinators/case management. All labs and imaging personally reviewed by me. Remainder the time spent in detailed review of previous records, lab data, imaging, and other medical provider documentation.
Anticipated Discharge: > 48 hours
Subjective/Interval History
-
Date of Service: January 21, 2025
Patient seen and examined after CABG, currently intubated.
Objective Data
-
Labs:
Laboratory Results
01/21/25 01/21/25 01/21/25
04:54 13:36 17:30
WBC 9.1
Hgb 13.0 10.7 L Pending
Hct 39.7 32.3 L Pending
Plt Count 178 166 Pending
PT 16.4 H
INR 1.29
APTT 68.1 H 34.1
HCO3 24.8
BUN 10
Creatinine 0.5 L
Glucose 165 H
Vital Signs:
Vital Signs
Temp Pulse Resp BP Pulse Ox
98.2 F 87 14 94/69 100
01/21/25 15:00 01/21/25 15:00 01/21/25 15:00 01/21/25 15:00 01/21/25 15:00
I&O
01/20/25 01/21/25 01/22/25
06:59 06:59 06:59
Intake Total 1024.3 / 1024.3 196.2 / 196.2
Output Total 340 / 340
Balance 1024.3 / 1024.3 -143.8 / -143.8
Physical Exam
-
General: Intubated
HEENT: Normocephalic, Atraumatic, No Ptosis, PERRLA and Nose Appears Normal
Respiratory: Rales and Other (Sternal incision clean)
Cardiac: Regular Rhythm and S1/S2
Breast: Deferred by me
GI: Soft, Nontender, Nondistended and Normal Bowel Sounds
Genito-urinary: No Costovertebral Tender
Musculoskeletal: No Clubbing, No Cyanosis and No Edema
Skin: Warm
Neuro: Other (Sedated)
Psych: Other (Sedated)
[2025-01-21 15:32] LABS: Glucose - Point of Care 148 mg/dl (70-99)
[2025-01-21] MEDS: TYLENOL PO ×2 (15:49→20:37)
[2025-01-21 16:15] LABS: B.E. 0.4 mmol/L; HCO3 26.5 mmol/L (21-28); O2 Saturation % 93.6 % (94-98); PCO2 48 mmHg (32-35); PO2 68 mmHg (83-108); Potassium 4.2 mMOL/L (3.5-5.1)
[2025-01-21 16:36] LABS: Glucose - Point of Care 128 mg/dl (70-99)
--- NOTE | 2025-01-21 16:41 | RESPNOTE ---
1630- Extubated to 6 liter NC at this time without incident,. 96%
--- NOTE | 2025-01-21 16:45 | PTCARENOTE ---
Pt tolerated CPAP wean. ABG drawn and sent. Reviewed results w/ CTNP. Respiratory at the bedside. Pt extubated to 6L NC @ 1630. POX 96%. Pt Oriented to person, place, and time. Moves extremities appropriately. Denies pain at this time.
[2025-01-21] MEDS: PACERONE PO (17:07)
[2025-01-21 17:30] LABS: Glucose - Point of Care 130 mg/dl (70-99)
[2025-01-21] MEDS: OFIRMEV 100 IV (17:34)
[2025-01-21] MEDS: LOW STRENGTH ASPIRIN 81 MG PO (17:34)
[2025-01-21 17:35] LABS: Hematocrit 34.0 % (37.0-47.0); Hemoglobin 11.3 g/dL (12.0-16.0); Platelet Count 193 10^3/uL (130-400)
--- NOTE | 2025-01-21 17:46 | PTCARENOTE ---
Pt reassessed. SR w/ 1st degree AVB on the tele monitor. HR 80s. V-wire unplugged from box d/t inappropriate pacing spikes. PAPs 30s/teens -20s. CVP ~11. CI dropped less than 2 (1.76). CASINO DEALER aware. MVO2 sent (61.8). Pt on 6 L NC. POX 99%. Mediastinal
CTx2 and L pleural CT assessment unchanged. Bond catheter intact and draining yellow urine. All surgical sites stable. All lines leveled, zeroed, and flushed. Ofirmev for pain - see MAR. Pt tolerated PO aspirin. See worklist for full VS and I&O's.
Glycemic protocol followed. Dobutamine infusing. Call ibarra within reach.
[2025-01-21 18:17] LABS: B.E. 0.4 mmol/L; HCO3 26.9 mmol/L (21-28); O2 Saturation % 98.2 % (94-98); PCO2 51 mmHg (32-35); PO2 127 mmHg (83-108)
[2025-01-21 18:25] LABS: Glucose - Point of Care 108 mg/dl (70-99)
[2025-01-21 20:19] LABS: B.E. 0.9 mmol/L; HCO3 26.6 mmol/L (21-28); O2 Saturation % 98.1 % (94-98); PCO2 46 mmHg (32-35); PO2 111 mmHg (83-108); Potassium 4.1 mMOL/L (3.5-5.1)
--- NOTE | 2025-01-21 20:30 | PTCARENOTE ---
Patient received sleeping in bed. Patient awakens easily. Patient A+A+Ox3. No neurological deficits noted. No c/o headache, dizziness or lightheadedness. High Flow Oxygen - 50%, 30 liters oxygen. SpO2 98%. Three chest tubes - Mediastinal x2
and Left Pleural - Intact and patent - <20 ml red drainage - No air leak. Chest tube dressing intact - No oozing. Sinus Rhythm with First Degree AV Block. Heart rate 80's. V-Wire 30/10/2.0 Dobutamine gtt 1 mcq/kg/min (2.8 ml/hr). Abdomen soft,
round. Hypoactive bowel sounds. No BM. No c/o nausea. No vomiting. Bond catheter - Temperature sensing - Light edilia,yellow urine - Outputs as documented. Trace generalized edema. Positive, palpable pulses. Sternal incision intact -
Surgical adhesive - Open to air. Right groin puncture site intact. Right lower extremity incision intact - Coban Sal Wrap. Left radial/arm with Coban Sal Wrap. Right I.J. Cordis with Lorman Diaz catheter. Right radial arterial line. A-Line, PAP,
CVP - Pressure bag/Saline flush - Flush without difficulty - Zeroed and calibrated - Waveforms within normal limits. C.O. 4.09 C.I. 2.05 SVR 1388 PAP 28/17 (22) CVP 12. ABG and Mixed Venous collected and sent. Assessment as documented.
[2025-01-21 20:33] LABS: Glucose - Point of Care 114 mg/dl (70-99)
[2025-01-21] MEDS: SENOKOT PO (20:37)
[2025-01-21] MEDS: ANCEF 5 IV (20:42)
[2025-01-21] MEDS: MELATONIN PO (21:56)
[2025-01-21] MEDS: REMOVE NICOTINE PATCH REMOVE (21:57)
[2025-01-21] MEDS: PACERONE 200 MG PO (22:00)
[2025-01-21 22:08] LABS: Glucose - Point of Care 103 mg/dl (70-99)
[2025-01-21] MEDS: DILAUDID 0.25 MG IV (22:30)
--- NOTE | 2025-01-21 23:00 | PTCARENOTE ---
Cardene gtt at 2.5 mg/hr (12.5 ml/hr) to maintain MAP 70-90 mmHG. Ionized calcium 1.14 - Calcium Gluconate 2gram/100 ml IV administered. IV Dilaudid 0.25mg given for pain management. Updated patient's son on patient's status via phone call. C.O.
4.77 C.I. 2.39 SVR 1140 PAP 28/16 (21) CVP 11. Assessment as documented.
[2025-01-22] VITALS (25 sets, daily range): BP systolic 89–129; BP diastolic 56–75; PULSE 71; O2SAT 97–99; BMI 34.6
[2025-01-22 00:11] LABS: Glucose - Point of Care 122 mg/dl (70-99)
--- NOTE | 2025-01-22 00:30 | PTCARENOTE ---
Patient sleeping. C.O. 4.56 C.I. 2.28 SVR 1157 PAP 30/18 (22) CVP 13. Assessment/Interventions as documented.
[2025-01-22 02:06] LABS: Glucose - Point of Care 109 mg/dl (70-99)
[2025-01-22] MEDS: DILAUDID 0.25 MG IV (02:19)
--- NOTE | 2025-01-22 02:30 | PTCARENOTE ---
Dobutamine gtt off at 0110. Cardene gtt off at 0115. IV Dilaudid 0.25mg for pain management. C.O. 4.48 C.I. 2.24 SVR 1249 PAP 33/19 (25) CVP 13. Assessment/Interventions as documented.
[2025-01-22 03:32] LABS: B.E. 2.2 mmol/L; HCO3 27.8 mmol/L (21-28); O2 Saturation % 98.4 % (94-98); PCO2 47 mmHg (32-35); PO2 105 mmHg (83-108); Potassium 4.2 mMOL/L (3.5-5.1)
[2025-01-22] MEDS: NOVOLIN R INSULIN INFUSION 100 IV (03:35)
[2025-01-22 03:43] LABS: Hematocrit 31.8 % (37.0-47.0); Hemoglobin 10.2 g/dL (12.0-16.0); Mean Corp Hgb Conc. 32.1 g/dL (33.0-37.0); Mean Corpuscular Volume 87.8 fL (81.0-99.0); Platelet Count 218 10^3/uL (130-400); Red Cell Dist. Width 15.2 % (11.5-14.5)
[2025-01-22] MEDS: ANCEF 5 IV ×2 (03:43→12:21)
[2025-01-22 04:15] LABS: Glucose - Point of Care 112 mg/dl (70-99)
[2025-01-22 04:22] LABS: Blood Urea Nitrogen 12 mg/dl (7-17); Calcium 8.5 mg/dl (8.4-10.2); Carbon Dioxide 27 mmol/L (22-30); Chloride 109 mmol/L (98-107); Estimated Creatinine Clearance 108 ml/min; Glucose 101 mg/dl (70-99); Magnesium 2.1 mg/dl (1.6-2.3); Potassium 4.4 mmol/L (3.5-5.1); Sodium 139 mmol/L (135-145); eGFR > 60.00
--- NOTE | 2025-01-22 04:30 | PTCARENOTE ---
Patient resting in bed. AM labs, ABG, Mixed Venous collected and sent. EKG completed. Patient given CHG bath and linens changed. C.O. 4.03 C.I. 2.02 SVR 1389 PAP (22) CVP 14. Assessment/Interventions as documented.
[2025-01-22] MEDS: TYLENOL PO (04:53)
[2025-01-22] MEDS: ROXICODONE 5 MG PO ×3 (04:57→20:25)
[2025-01-22] MEDS: SYNTHROID 50 MCG PO (04:57)
[2025-01-22 06:20] LABS: Glucose - Point of Care 105 mg/dl (70-99)
--- NOTE | 2025-01-22 06:20 | W.PN.CT ---
Today's Communication / Plan
-
-pod #1
-no issues overnight
-on high flow NC postop at 50% 30L (didn't tolerate bipap d/t claustrophobia)- wean as tolerated, pOx 96-98%
-CI 2.02, CO 4.03, mvO2 is 58.5 off Dobutamine. Current drips: Insulin. Dobut 1, Cardene 2.5
-CT outputs: 2 meds 90/290 and L pleur 5/25 in 12/24 hrs
-wean off Dobut, then deline
-current meds (ASA, Plavix, Crestor, Amio, Protonix). Held Lopressor while on Dobut
-encourage IS, OOB
Assessment / Plan
-
Assessment:
-Severe 3v CAD- s/p Coronary artery bypass grafting x 4 (In situ JOSEPH to LAD, Ao to RSVG to OM1�OM3 in sequence, Ao to RSVG to PLB); LAAE with 35mm atrial clip by Dr. Blackwell on 01/21/25, pod #1
-IntraOp YASMANY: showed slightly better squeeze than previously predicted at 50% and no anteroseptal hypokinesis. There was no significant valvular disease; however, there is notable significant mitral annular calcification on the posterior side and a
ascending aorta of approximately 4.3 cm which is consistent with preoperative imaging.
-S/P STEMI on 01/17/25
-Hx STEMI S/P PCI with GREGG to GREGG to prox RCA, 12/20/13
-Brilinta washout
-Medical non-compliance
-HTN
-HLD
-Prediabetes (hgb A1C 5.9)
-Class 2 obesity (BMI 35)
-Hypothyroidism
-Current tobacco abuse (1/2 PPD since 16 y/o)
-Marijuana use (2-3 gummies/week)
-ETOH use (1 Liquor/week)
-Anxiety
-S/P Cholecystectomy
-S/P Repair of rotator cuff
-Acute postop blood loss anemia- stable, no transfusion
-Acute postop atelectasis/pulmonary insufficiency/hypercapnea
-Acute postop hypovolemia with subsequent hypervolemia
Discussed patient care with: Nursing and Care Team
Subjective
-
Date of Service: January 22, 2025
Objective Data
-
PT 16.4 Sec (11.4-14.6) H 01/21/25 13:36
INR 1.29 01/21/25 13:36
APTT 34.1 Sec (23.4-35.0) 01/21/25 13:36
Vital Signs
Vital Signs
Temp Pulse Resp BP Pulse Ox
97.8 F 81 15 97/62 96
01/22/25 00:20 01/22/25 00:20 01/22/25 00:20 01/22/25 00:20 01/22/25 00:20
CT Intake/Output/Weight
01/21/25 01/21/25 01/22/25
06:59 18:59 06:59
Intake Total 324.6 / 740.9 416.3 / 740.9
Output Total 820 / 1310 490 / 1310
Balance -495.4 / -569.1 -73.7 / -569.1
SaO2: 96
Physical Exam
-
General: Awake and AOx3
Cardiovascular: Regular rate & rhythm, No Murmurs and No Rub
Respiratory: Decreased Breath Sounds
Sternum: Stable
Incision: Clean, Dry and Intact
Extremities: No Edema
Abdomen: soft, nondistended, nontender, +decreased bowel sounds
Data Reviewed
-
Lab Results: Results Reviewed
Medications: Active Meds Reviewed
Chest X-Ray: Report Reviewed and Image Reviewed
ECG: Report Reviewed and Image Reviewed
--- NOTE | 2025-01-22 06:30 | PTCARENOTE ---
Mixed Venous 58.5. PA order to restart Dobutamine gtt at 1 mcq/kg/min. Cardene gtt restarted to maintain MAP 70-90 mmHg. Patient sleeping. No further changes from previous assessment.
--- NOTE | 2025-01-22 07:30 | PTCARENOTE ---
Assumed care of patient from overnight houseperson RN. Drowsy but easily arousable, once awake significantly anxious. SR on monitor. RT IJ swan at 40 cm , Rt A line transducing. Lines leveled, recalibrated and flushed. Dobutamine, insulin, and cardene
infusing on hand off. Epicardial wire insulated. CT x 3 to - 20 cm suction No air leak or crepitus noted. Abdomen soft amd obese, hypoactive bowel sounds noted. Bond draining clear yellow urine. Surgical sites c,d,i. Pulses palpable. Plus
one anasarca appreciated.
[2025-01-22] MEDS: NICODERM TRANSDERMAL 21 MG TRANSDERM (08:02)
[2025-01-22] MEDS: ATIVAN 0.5 MG PO (08:02)
[2025-01-22] MEDS: LIDOCAINE 4% PATCH 1 PATCH TOPICAL (08:03)
[2025-01-22] MEDS: MAGNESIUM OXIDE 400 MG PO ×2 (08:03→20:25)
[2025-01-22] MEDS: PROTONIX 40 MG PO (08:03)
[2025-01-22] MEDS: FLEXERIL 5 MG PO (08:03)
[2025-01-22] MEDS: LOW STRENGTH ASPIRIN 81 MG PO (08:03)
[2025-01-22] MEDS: CRESTOR 40 MG PO (08:03)
[2025-01-22] MEDS: PLAVIX 75 MG PO (08:03)
[2025-01-22] MEDS: SENOKOT 8.6 MG PO ×2 (08:03→20:25)
[2025-01-22] MEDS: NEURONTIN 100 MG PO ×3 (08:03→22:29)
[2025-01-22] MEDS: PACERONE 200 MG PO ×3 (08:03→22:29)
[2025-01-22 08:12] LABS: Glucose - Point of Care 101 mg/dl (70-99)
[2025-01-22] MEDS: MAGNESIUM OXIDE PO (08:43)
--- NOTE | 2025-01-22 08:56 | W.PN.CARDCBS ---
Today's Communication / Plan
-
Cont post op care
Impression / Plan
-
.
PCP: Dr. Raines
Card: Dr. Justin
Impression:
Admitted as STEMI alert 01/17/2025
AWMI 01/17/2025
MV CAD involving mid LAD and trifurcation stenosis of the mid circumflex, large OM1 and moderate OM 2 as well as the PDA and PLB by cardiac cath 01/18/2025
s/p In situ JOSEPH to LAD, Ao to RSVG to OM1�OM3 in sequence, Ao to RSVG to PLB, BONITA clip 01/21/25
ICM EF 40 to 45% by echo 01/18/2025
CAD s/p NV and 3.5 mm Xience GREGG to the proximal to mid RCA 2013
Medication noncompliance, has intermittently stopped aspirin therapy
Active smoker
Hyperlipidemia with statin intolerance
Hypothyroidism with abnormal TFTs 01/18/2025
Hyperglycemia and prediabetes
Echo 12/21/2013: EF 55 to 60%, no WMA
Echo 01/18/2025: EF 40 to 45%, stage I diastolic dysfunction, normal RV size and function, no significant valve disease
- HgbA1c 5.9%, prediabetic
Plan:
-She presented with chest pain and EKG concerning for anterior STEMI status post urgent cardiac cath showing multivessel CAD. Troponin peaked at 12. Referred for CABG evaluation
- s/p In situ JOSEPH to LAD, Ao to RSVG to OM1�OM3 in sequence, Ao to RSVG to PLB, BONITA clip 01/21/25
Cont post op care
CT surgery weaning IV Cardene and Dobutamine
Remains sinus
Cont DAPT ASA and Plavix.
She reported significant myalgias on lipitor in past, she was transitioned to crestor 40mg daily at her request
Continue Metoprolol, she complained of fatigue with this in past. she reports she tolerated bystolic without issues and she would prefer to be on that as OP if possible
Continue nicotine patch
Appreciate hospitalist input regarding abnormal TFTs with a history of hypothyroidism which appears to be linked to medication noncompliance. TSH was 21.2 and free T4 is low at 0.52. Synthroid 50 mcg ordered and patient is recommended to repeat TSH
and free T4 in 6 to [address] surgery and with nursing
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
Subjective
Date of Service: January 22, 2025
Pt seen and examined. No complaints. No chest pain or shortness of breath.
Objective
Labs:
01/22/25 03:23
01/22/25 03:23
Labs
Hgb 10.2 g/dL (12.0-16.0) L 01/22/25 03:23
Hct 31.8 % (37.0-47.0) L 01/22/25 03:23
Plt Count 218 10^3/uL (130-400) 01/22/25 03:23
PT 16.4 Sec (11.4-14.6) H 01/21/25 13:36
INR 1.29 01/21/25 13:36
APTT 34.1 Sec (23.4-35.0) 01/21/25 13:36
Sodium 139 mmol/L (135-145) 01/22/25 03:23
Potassium 4.4 mmol/L (3.5-5.1) 01/22/25 03:23
BUN 12 mg/dl (7-17) 01/22/25 03:23
Creatinine 0.5 mg/dL (0.6-1.0) L 01/22/25 03:23
Glucose 101 mg/dl (70-99) H 01/22/25 03:23
Vital Signs and I&O:
Vital Signs
Temp Pulse Resp BP Pulse Ox
98.1 F 87 31 107/71 80
01/22/25 07:39 01/22/25 08:10 01/22/25 08:10 01/22/25 08:00 01/22/25 08:10
Vital Signs
Temp Pulse Resp BP Pulse Ox
98.1 F 87 31 107/71 80
01/22/25 07:39 01/22/25 08:10 01/22/25 08:10 01/22/25 08:00 01/22/25 08:10
Intake & Output
01/20/25 01/21/25 01/22/25 01/23/25
06:59 06:59 06:59 06:59
Intake Total 1024.3 / 1024.3 949.4 / 949.4 67.3 / 67.3
Output Total 1615 / 1615 110 / 110
Balance 1024.3 / 1024.3 -665.6 / -665.6 -42.7 / -42.7
Physical Exam
Physical Exam
General: No acute distress, AAOX3
Neck: Negative JVD
Heart: Regular, Negative S3 positive S1/S2, Negative S4, No murmur
Lungs: CTA b/l, negative wheezes/rales/rhonchi
Thorax: CT in place
Abd: Positive BS, NT/ND, neg rebound/rigidity/guarding
Ext: Negative cyanosis/clubbing/edema
Neuro: nonfocal
[2025-01-22] MEDS: BACTROBAN 2% OINTMENT 1 APPLIC NASAL ×2 (09:13→20:25)
--- NOTE | 2025-01-22 09:31 | W.PN.INTV ---
Addendum entered and electronically signed by Susan Goss MD 01/23/25 09:40:
Patient transferred out of CVICU
Seismograph Chief service will sign off, please call as needed
Outpatient follow-up with [facility] pulmonary clinic recommended, information added to discharge section.
Original Note:
Today's Communication / Plan
Recommendations
- Start DuoNeb scheduled 4 times daily
- Incentive spirometry, sit in chair as tolerated
- Wean oxygen as tolerated, follow-up chest x-ray in a.m.
Assessment
-
Patient is a 64-year-old female who presented with a ST elevation CA on 01/17 and was admitted to hospitalist service. Patient was evaluated by cardiology service and was taken to [facility] and was noted to have extensive multivessel coronary artery
disease. Patient has known prior history of coronary artery disease and PCI in 2013, medical noncompliance as well as ongoing smoking, hypertension and hyperlipidemia. Patient was subsequently evaluated by cardiothoracic surgery. CABG was
recommended and patient was taken to the OR on 01/21. Postprocedure, she was admitted to cardiovascular ICU, currently intubated, mechanically ventilated and sedated. Seismograph Chief consultation was requested for further input.
64-year-old female with acute myocardial infarction, multivessel coronary artery disease s/p coronary artery bypass graft, left atrial appendage exclusion POD # 1
Titrate off pressors per protocol, currently on dobutamine infusing at 1, nicardipine infusing at 2.5, MAP of 80. CVP of 14. Heart rate around 84
ECHO reviewed with reduced LVEF, 40 to 45%
PA catheter readings reviewed, , mean of 29.
Management of chest tubes per primary service
Patient currently extubated. Postextubation was hypoxic required high flow cannula. Did not tolerate BiPAP due to claustrophobia, currently on mid flow requiring 12 to 15 L supplemental oxygen, saturating 89 to 92%. Respiratory rate 26-30.
CXR suggestive of atelectasis and low lung volumes
Encourage incentive spirometry. Known history of longstanding smoking, suspect underlying emphysema. Start DuoNeb scheduled 4 times daily. Increase activity, sit as tolerated, wean oxygen as tolerated.
Longstanding history of smoking, no obstruction noted on spirometry, mild restriction likely related to obesity. Needs outpatient follow-up with pulmonary clinic for further evaluation
Aspiration precautions
Encouraged incentive spirometry, OOB/ambulation/early mobility
Advance diet as tolerated following extubation
GI prophylaxis: Protonix
Monitor critical I/O's
Bond/chest tube output
Hb/platelets postoperatively, mild drift
Trend CBC for now
Can transfuse if indicated for Hb <7, plt <50 in surgical patients
DVT prophylaxis including SCDs
Insulin protocol initiated and ongoing
Transition to SQ/off as indicated per team
Other medical diagnoses:
- Acute CA with STEMI, 01/2025
- Hypertension, hyperlipidemia
- Hypothyroidism, elevated TSH, had not been taking thyroid replacement lately
- Prediabetes
- History of smoking. Will get additional detail once patient is extubated, awake and alert. Qualifies for low-dose CT scan screening for lung cancer, needs outpatient PFTs including lung volumes, diffusion capacity assessment on 6-minute walk
test.
Critical Care time [45] mins -- The patient is admitted for acute critical illness for the treatment of vital organ failure and/or prevention of further life-threatening conditions. Total care includes time spent in review of history, physical exam,
medications, hemodynamic/ventilator parameters, laboratory data, imaging and discussion with house staff, pharmacy, respiratory therapy, desk director, and nursing
Data:
Spirometry 01/2025: Spirometry suggests restriction. There was no significant bronchodilator response. FVC 69% of predicted.
ECHO 01/2025: 1. Normal left ventricular size with mildly reduced left ventricular systolic function. Mid to apical anterior and anteroseptal hypokinesis. Estimated left ejection fraction is 40 to 45%. Stage I diastolic dysfunction, suggestive of
abnormal relaxation.
2. Normal right ventricular size and systolic function.
3. No significant valvular abnormalities.
4. No pericardial effusion.
5. Compared to prior echocardiogram from 2013, LV systolic function is mildly reduced now with mid to apical anterior and anterior septal hypokinesis.
C 01/2025: 1. Multivessel coronary artery disease involving the mid LAD and trifurcation stenosis (Crenshaw 1,1,1) involving the mid circumflex, large OM 1 and moderate OM 2 as well as the PDA and posterolateral branch
2. Moderately reduced LV systolic function
ABD US 01/2025: Hepatic fatty infiltration.
Mild hepatomegaly.
Echogenic hepatic mass suggestive of a benign hemangioma corresponding to recent CT finding.
Simple left renal cyst.
CT Chest 01/2025: No acute disease of the chest.
Overall moderate atherosclerotic vascular disease as described above.
Findings suggesting mild adrenal hyperplasia.
Possible hepatic mass. If not already known, confirmation 2by abdominal ultrasound or CT of the liver with and without IV contrast recommended.
Possible malalignment of the thoracic spine at 2 levels versus artifact due to patient motion. This could further be evaluated by plain film examination of the thoracic spine. New.
Subjective Dataa
Subjective Data
Date of Service:
Date of Service: January 22, 2025
Subjective:
Patient lying in bed, reports pain, no acute distress noted.
Review of Systems
Genitourinary: Other (All 14 systems reviewed and negative except as stated above in the history of present illness.)
Objective Data
Data Reviewed
Vital Signs / I&O / Oxygen:
Vital Signs
Temp Pulse Resp BP Pulse Ox
97.8 F 79 23 116/63 94
01/22/25 09:00 01/22/25 09:20 01/22/25 09:20 01/22/25 09:00 01/22/25 09:20
Intake and Output
01/21/25 01/22/25 01/23/25
06:59 06:59 06:59
Intake Total 949.4 / 949.4 223.9 / 223.9
Output Total 1615 / 1615 170 / 170
Balance -665.6 / -665.6 53.9 / 53.9
SaO2 [CPAP/PSV] 97
SaO2 [SIMV] 94
SaO2 94
Nasal Cannula flow liters per 30
minute
Physical Exam
General: Comfortable
HEENT: Normocephalic
Cardiovascular: S1-S2
Respiratory: Clear and Non-Labored Respirations
GI: Soft and Non Distended
Neurology: Awake and Alert
Skin: Warm
Labs/Micro/Reports
Lab Data
01/22/25 03:23
01/22/25 03:23
Laboratory Results
01/21/25 01/21/25 01/21/25
13:36 15:52 18:00
PT 16.4 H
INR 1.29
APTT 34.1
pH 7.35 7.35 Cancelled
pCO2 45 H 48 H Cancelled
pO2 108 68 L Cancelled
HCO3 24.8 26.5 Cancelled
O2 Delivery Level Cancelled
01/21/25 01/21/25 01/21/25
18:04 20:00 20:10
PT
INR
APTT
pH 7.33 L Cancelled 7.37
pCO2 51 H Cancelled 46 H
pO2 127 H Cancelled 111 H
HCO3 26.9 Cancelled 26.6
O2 Delivery Level Cancelled
01/22/25
03:22
PT
INR
APTT
pH 7.38
pCO2 47 H
pO2 105
HCO3 27.8
O2 Delivery Level
[2025-01-22 09:55] LABS: Glucose - Point of Care 122 mg/dl (70-99)
[2025-01-22] MEDS: DUONEB 3 ML INH ×3 (11:30→19:23)
--- NOTE | 2025-01-22 12:01 | W.PN.HOSP.TC ---
Today's Communication/Plan
-
Continue management as per ICU
Assessment / Plan
Assessment / Plan
Impression:
Patient is 64 years old with history of coronary artery disease, hyperlipidemia, hypertension, hypothyroidism, COPD, medication noncompliance who came to the ER with chest pain.
Patient was stopped taking all her medications for last 15-month, in the ER patient noted to have STEMI, underwent cardiac cath which showed:
1. Multivessel coronary artery disease involving the mid LAD and trifurcation stenosis (Crenshaw 1,1,1) involving the mid circumflex, large OM 1 and moderate OM 2 as well as the PDA and posterolateral branch
2. Moderately reduced LV systolic function.
CT surgery consulted for CABG consideration.
Patient seen and examined at bedside, denies any chest pain or shortness of breath, no abdominal pain, no nausea, no vomiting, no diarrhea or constipation.
Consult for hospitalist medicine for hypothyroidism.
Status post CABG January
Assessment/plan:
STEMI status post Cardiac cath shows multivessel disease/status post Quadruple bypass
Status post cardiac cath shows:
1. Multivessel coronary artery disease involving the mid LAD and trifurcation stenosis (Crenshaw 1,1,1) involving the mid circumflex, large OM 1 and moderate OM 2 as well as the PDA and posterolateral branch
2. Moderately reduced LV systolic function.
CT surgery consulted for CABG
Patient status post CABG on 01/21
Intubated and admitted to the ICU.
Currently extubated
Liver benign hemangioma
CT showed Possible hepatic mass.
Ultrasound showed: Echogenic hepatic mass suggestive of a benign hemangioma corresponding to recent CT finding
History of hypothyroidism
TSH 21.2.
Free T4 0.52
Patient used to be on Synthroid but not sure about the dose.
She said it could be 100 mcg or 125 mcg.
Patient was not taking her Synthroid for more than a year.
Will resume Synthroid at 50 mcg daily.
Need to repeat TSH/free T4 in 6 to 8 weeks.
Prediabetes (HBA1C 5.9)
Diet and exercise
Lifestyle modification
No need to start antidiabetic medication
Patient used to be on Jardiance for cardiac indications which can be continued on discharge
History�of�hypertension
Not taking any home meds, continue metoprolol
History of hyperlipidemia
Not taking any home meds, continue atorvastatin
Nicotine abuse.
Nicotine patches ordered
�
CODE STATUS:�Full�code
DVT�prophylaxis:�SCDs
Diet: NPO
Disposition: Continue management in the ICU post
Total time spent on today's encounter was 75 minutes which included time spent in counseling the patient/family regarding diagnosis and treatment plan as listed above, goals of care, and symptom management. Case was discussed with nursing staff,
specialists, and care coordinators/case management. All labs and imaging personally reviewed by me. Remainder the time spent in detailed review of previous records, lab data, imaging, and other medical provider documentation.
Anticipated Discharge: > 48 hours
Subjective/Interval History
-
Date of Service: January 22, 2025
Patient seen and examined at bedside, extubated, having sternal incision site chest pain.
Objective Data
-
Labs:
Laboratory Results
01/22/25 01/22/25
03:22 03:23
WBC 19.8 H
Hgb 10.2 L
Hct 31.8 L
Plt Count 218
HCO3 27.8
Sodium 139
Potassium 4.4
Chloride 109 H
Carbon Dioxide 27
BUN 12
Creatinine 0.5 L
Glucose 101 H
Calcium 8.5
Vital Signs:
Vital Signs
Temp Pulse Resp BP Pulse Ox
97.8 F 69 20 116/63 98
01/22/25 09:00 01/22/25 11:33 01/22/25 11:33 01/22/25 09:00 01/22/25 11:33
I&O
01/21/25 01/22/25 01/23/25
06:59 06:59 06:59
Intake Total 949.4 / 949.4 380.5 / 380.5
Output Total 1615 / 1615 305 / 305
Balance -665.6 / -665.6 75.5 / 75.5
Physical Exam
-
General: Well Developed, Well Nourished and Appears in Distress
HEENT: Normocephalic, Atraumatic, No Ptosis, PERRLA and Nose Appears Normal
Respiratory: Rales and Other (Sternal incision clean)
Cardiac: Regular Rhythm and S1/S2
Breast: Deferred by me
GI: Soft, Nontender, Nondistended and Normal Bowel Sounds
Genito-urinary: No Costovertebral Tender
Musculoskeletal: No Clubbing, No Cyanosis and No Edema
Skin: Warm
Neuro: Awake and Alert
Psych: Calm
[2025-01-22 12:18] LABS: Glucose - Point of Care 105 mg/dl (70-99)
[2025-01-22] MEDS: NSS IV (13:30)
--- NOTE | 2025-01-22 13:45 | W.PN.ANS.POP ---
Anesthesia Post Operative
- Anesthesia Post Op Note
Vital Signs Stable-See Nursing Note: Yes
Airway Patent: Yes
Adequate Pain Control: Yes
Change in Mental Status: No
Current Postoperative Nausea & Vomiting: No
Anesthesia Complications: No
General Anesthetic Recall: No
Unplanned Admission: No
Post Op Hydration Adequate: Yes
--- NOTE | 2025-01-22 14:08 | PTCARENOTE ---
Assist x 2 back to bed from chair. RT IJ swan removed. Bond catheter and Lt pleural chest tube removed. Pt tolerated w/o issue. Insulin drip discontinued per order. VSS. Assisted back to chair x 1 assist after.
[2025-01-22] MEDS: FERRLECIT 110 MG IV (14:18)
[2025-01-22] MEDS: TYLENOL 975 MG PO ×2 (14:21→20:25)
--- NOTE | 2025-01-22 16:56 | PTCARENOTE ---
Able to void in in bsc, w/o difficulty. Tolerating sitting up in chair. VSS. Denies need for pain medicine at present. Will continue to monitor.
--- NOTE | 2025-01-22 18:37 | PTCARENOTE ---
Stood at side of bed for approx 5 minutes with RN, using rolling walker. Able to do standing exercises. Tolerated well
[2025-01-22] MEDS: REMOVE LIDOCAINE PATCH 1 PATCH REMOVE (20:26)
--- NOTE | 2025-01-22 20:30 | PTCARENOTE ---
Patient received OOB in chair watching television. Patient A+A+Ox3. No neurological deficits noted. Patient assisted with assist x1 to bedside commode. Voided 100 ml edilia urine. Assisted back to recliner chair. O2 4L via NC. SpO2 92%. HASSAN.
Two Mediastinal chest tubes - Intact and patent - 30 ml red drainage - No air leak. Chest tube dressing intact. Sinus Rhythm. Rare PVC. Heart rate 70's. Blood pressure 129/70 (88). V-Wire 30/10/2.0 Patient with no c/o chest pain, pressure or
discomfort. Abdomen soft, round. Normoactive bowel sounds. No BM. No c/o nausea. No vomiting. Positive, palpable pulses. Generalized edema. Left hand/forearm edema. Sternal incision intact - Surgical adhesive - Open to air. Right groin
puncture site. Right lower extremity incision intact. Left radial incision intact - Open to air. Patient with no c/o back or flank pain. Right I.J. Cordis. Assessment as documented.
[2025-01-22] MEDS: REMOVE NICOTINE PATCH 1 PATCH REMOVE (22:30)
[2025-01-22] MEDS: MELATONIN 10 MG PO (22:34)
[2025-01-23] VITALS (17 sets, daily range): BP systolic 97–125; BP diastolic 55–69; BMI 35.8
--- NOTE | 2025-01-23 | PTCARENOTE ---
Patient sleeping without difficulty in bed. Assessment/Interventions as documented.
[2025-01-23] MEDS: ROXICODONE 5 MG PO ×3 (03:09→20:43)
--- NOTE | 2025-01-23 05:00 | PTCARENOTE ---
Patient sleeping without difficulty. AM lab work collected and sent. OOB to chair in AM. Assessment/Interventions as documented.
[2025-01-23 05:09] LABS: Hematocrit 28.3 % (37.0-47.0); Hemoglobin 9.1 g/dL (12.0-16.0); Mean Corp Hgb Conc. 32.2 g/dL (33.0-37.0); Mean Corpuscular Volume 88.4 fL (81.0-99.0); Platelet Count 192 10^3/uL (130-400); Red Cell Dist. Width 15.8 % (11.5-14.5)
[2025-01-23 05:30] LABS: Blood Urea Nitrogen 17 mg/dl (7-17); Calcium 8.3 mg/dl (8.4-10.2); Carbon Dioxide 31 mmol/L (22-30); Chloride 103 mmol/L (98-107); Estimated Creatinine Clearance 109 ml/min; Glucose 160 mg/dl (70-99); Magnesium 2.1 mg/dl (1.6-2.3); Potassium 4.5 mmol/L (3.5-5.1); Sodium 135 mmol/L (135-145); eGFR > 60.00
[2025-01-23] MEDS: NSS 500 IV (05:30)
--- NOTE | 2025-01-23 05:52 | W.PN.CT ---
Today's Communication / Plan
-
-pod #2
-no issues overnight
-on high flow NC postop, now down to 4 L NC
-CT outputs: 2 meds 70/190 in 12/24 hrs, L Pl DCd
-off dobutamine, delined
-current meds (ASA, Plavix, Crestor, Amio, Protonix). Lopressor still held
-encourage IS, OOB
Assessment / Plan
-
Assessment:
-Severe 3v CAD- s/p Coronary artery bypass grafting x 4 (In situ JOSEPH to LAD, Ao to RSVG to OM1�OM3 in sequence, Ao to RSVG to PLB); LAAE with 35mm atrial clip by Dr. Blackwell on 01/21/25, pod #2
-IntraOp YASMANY: showed slightly better squeeze than previously predicted at 50% and no anteroseptal hypokinesis. There was no significant valvular disease; however, there is notable significant mitral annular calcification on the posterior side and a
ascending aorta of approximately 4.3 cm which is consistent with preoperative imaging.
-S/P STEMI on 01/17/25
-Hx STEMI S/P PCI with GREGG to GREGG to prox RCA, 12/20/13
-Brilinta washout
-Medical non-compliance
-HTN
-HLD
-Prediabetes (hgb A1C 5.9)
-Class 2 obesity (BMI 35)
-Hypothyroidism
-Current tobacco abuse (1/2 PPD since 16 y/o)
-Marijuana use (2-3 gummies/week)
-ETOH use (1 Liquor/week)
-Anxiety
-S/P Cholecystectomy
-S/P Repair of rotator cuff
-Acute postop blood loss anemia- stable, no transfusion
-Acute postop atelectasis/pulmonary insufficiency/hypercapnea
-Acute postop hypovolemia with subsequent hypervolemia
Subjective
-
Date of Service: January 23, 2025
Objective Data
-
Lab Results
01/23/25 04:36
01/23/25 04:36
PT 16.4 Sec (11.4-14.6) H 01/21/25 13:36
INR 1.29 01/21/25 13:36
APTT 34.1 Sec (23.4-35.0) 01/21/25 13:36
Vital Signs
Vital Signs
Temp Pulse Resp BP Pulse Ox
98.0 F 72 18 119/69 97
01/23/25 03:00 01/23/25 04:55 01/23/25 03:00 01/23/25 04:00 01/23/25 04:55
CT Intake/Output/Weight
01/22/25 01/22/25 01/23/25
06:59 18:59 06:59
Intake Total 624.8 / 949.4 949.7 / 1289.7 340 / 1289.7
Output Total 795 / 1615 745 / 1165 420 / 1165
Balance -170.2 / -665.6 204.7 / 124.7 -80 / 124.7
SaO2: 97
Physical Exam
-
General: Awake and Oriented
Cardiovascular: Regular rate & rhythm and No Murmurs
Respiratory: Clear, Equal and Decreased Breath Sounds
Sternum: Stable
Incision: Clean, Dry and Intact
Extremities: No Edema and No Erythema
Data Reviewed
-
Lab Results: Results Reviewed
Medications: Active Meds Reviewed
Chest X-Ray: Report Reviewed and Image Reviewed
ECG: Report Reviewed
[2025-01-23] MEDS: TYLENOL 975 MG PO ×3 (06:45→20:42)
[2025-01-23] MEDS: SYNTHROID 50 MCG PO (06:45)
[2025-01-23] MEDS: DUONEB 3 ML INH (07:55)
[2025-01-23] MEDS: NICODERM TRANSDERMAL 21 MG TRANSDERM (07:55)
[2025-01-23] MEDS: FLEXERIL 5 MG PO (07:56)
[2025-01-23] MEDS: LOW STRENGTH ASPIRIN 81 MG PO (07:56)
[2025-01-23] MEDS: PLAVIX 75 MG PO (07:56)
[2025-01-23] MEDS: SENOKOT 8.6 MG PO ×2 (07:56→20:42)
[2025-01-23] MEDS: CRESTOR 40 MG PO (07:56)
[2025-01-23] MEDS: MAGNESIUM OXIDE 400 MG PO ×2 (07:56→20:42)
[2025-01-23] MEDS: PROTONIX 40 MG PO (07:56)
[2025-01-23] MEDS: BACTROBAN 2% OINTMENT 1 APPLIC NASAL ×2 (07:56→20:41)
[2025-01-23] MEDS: PACERONE 200 MG PO ×3 (07:57→22:12)
[2025-01-23] MEDS: LIDOCAINE 4% PATCH TOPICAL (07:57)
[2025-01-23] MEDS: LOPRESSOR 12.5 MG PO ×2 (07:57→20:41)
[2025-01-23] MEDS: NEURONTIN 100 MG PO ×3 (07:57→22:12)
--- NOTE | 2025-01-23 08:09 | PTCARENOTE ---
Assumed care of patient from machinist 2nd shift RN. AAO x 3. Dozing intermittently in the chair. SR on monitor. Epicardial wire insulated. 4 L NC 96% Is to 500. Chest tubes x 2 to - 20 cm suction . No air leak or crepitus noted. abdomen obese with
positive bowel sounds . Voiding edilia urine in BSC. General trace anasarca appreciated. LT hand with plus 1 edema present. Pulses palpable. Plan for day discussed.
--- NOTE | 2025-01-23 09:21 | W.PN.UPDATE ---
Update Note
Progress Note Update
V wires removed without issues. Tolerated well. Bedrest x 1 hour with frequent VS.
[2025-01-23] MEDS: KCL 20 MEQ PO (09:54)
[2025-01-23] MEDS: LASIX 40 MG IV (09:54)
--- NOTE | 2025-01-23 10:14 | W.PN.CARDCBS ---
Today's Communication / Plan
-
Doing well. Remains in sinus rhythm s/p CABG/Atria Clip]
Cont IV Lasix.
Cont Amiodarone/Metoprolol
Creat 0.6
Hg 9.1
Cont post-op care
Impression / Plan
-
.
PCP: Dr. Raines
Card: Dr. Justin
Impression:
Admitted as STEMI alert 01/17/2025
AWMI 01/17/2025
MV CAD involving mid LAD and trifurcation stenosis of the mid circumflex, large OM1 and moderate OM 2 as well as the PDA and PLB by cardiac cath 01/18/2025
s/p In situ JOSEPH to LAD, Ao to RSVG to OM1�OM3 in sequence, Ao to RSVG to PLB, BONITA clip 01/21/25
ICM EF 40 to 45% by echo 01/18/2025
CAD s/p ND and 3.5 mm Xience GREGG to the proximal to mid RCA 2013
Medication noncompliance, has intermittently stopped aspirin therapy
Active smoker
Hyperlipidemia with statin intolerance
Hypothyroidism with abnormal TFTs 01/18/2025
Hyperglycemia and prediabetes
Echo 12/21/2013: EF 55 to 60%, no WMA
Echo 01/18/2025: EF 40 to 45%, stage I diastolic dysfunction, normal RV size and function, no significant valve disease
- HgbA1c 5.9%, prediabetic
Plan:
-She presented with chest pain and EKG concerning for anterior STEMI status post urgent cardiac cath showing multivessel CAD. Troponin peaked at 12. Referred for CABG evaluation
- s/p In situ JOSEPH to LAD, Ao to RSVG to OM1�OM3 in sequence, Ao to RSVG to PLB, BONITA clip 01/21/25
Cont post op care
Off drips. Cont IV lasix and diurese
Remains sinus
Cont DAPT ASA and Plavix.
She reported significant myalgias on lipitor in past, she was transitioned to crestor 40mg daily at her request
Continue Metoprolol, she complained of fatigue with this in past. she reports she tolerated bystolic without issues and she would prefer to be on that as OP if possible
Continue nicotine patch
Appreciate hospitalist input regarding abnormal TFTs with a history of hypothyroidism which appears to be linked to medication noncompliance. TSH was 21.2 and free T4 is low at 0.52. Synthroid 50 mcg ordered and patient is recommended to repeat TSH
and free T4 in 6 to 8 weeks
Discussed with nursing
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
Subjective
Date of Service: January 23, 2025
no chest pains. No palpitations.
Objective
Labs:
01/23/25 04:36
01/23/25 04:36
Labs
Hgb 9.1 g/dL (12.0-16.0) L 01/23/25 04:36
Hct 28.3 % (37.0-47.0) L 01/23/25 04:36
Plt Count 192 10^3/uL (130-400) 01/23/25 04:36
PT 16.4 Sec (11.4-14.6) H 01/21/25 13:36
INR 1.29 01/21/25 13:36
APTT 34.1 Sec (23.4-35.0) 01/21/25 13:36
Sodium 135 mmol/L (135-145) 01/23/25 04:36
Potassium 4.5 mmol/L (3.5-5.1) 01/23/25 04:36
BUN 17 mg/dl (7-17) 01/23/25 04:36
Creatinine 0.6 mg/dL (0.6-1.0) 01/23/25 04:36
Glucose 160 mg/dl (70-99) H 01/23/25 04:36
Vital Signs and I&O:
Vital Signs
Temp Pulse Resp BP Pulse Ox
98.2 F 75 18 107/64 94
01/23/25 07:41 01/23/25 08:06 01/23/25 08:06 01/23/25 07:42 01/23/25 09:06
Vital Signs
Temp Pulse Resp BP Pulse Ox
98.2 F 75 18 107/64 94
01/23/25 07:41 01/23/25 08:06 01/23/25 08:06 01/23/25 07:42 01/23/25 09:06
Intake & Output
01/21/25 01/22/25 01/23/25 01/24/25
06:59 06:59 06:59 06:59
Intake Total 949.4 / 949.4 1309.7 / 1309.7 140 / 140
Output Total 1615 / 1615 1280 / 1280 55 / 55
Balance -665.6 / -665.6 29.7 / 29.7 85 / 85
Physical Exam
Physical Exam
GEN: No distress, awake, Ox3
HEENT: supple, anicteric, mmm
LUNGS: CTA, no wheezes/rales
CV: Reg, S1/S2, 1/6 syst LSB, no gallop
ABD: soft, BS+, NT/ND
EXT: No edema
NEURO: Gross non-focal
SKIN: sternotomy
--- NOTE | 2025-01-23 11:26 | PTCARENOTE ---
Epicardial wire removed by CT PA, VS Q 15 per protocol with 1 hour bedrest. Mediastinal chest tubes then removed. Pt tolerated w/o issue. Ambulating with rolling walker and x 1 assist . Voiding in bathroom in good amounts post lasix. VSS.
Oxygen down to 3 L NC . Acapella given to patient. Assessment otherwise unchanged from prior.
--- NOTE | 2025-01-23 12:31 | W.PN.HOSP.TC ---
Today's Communication/Plan
-
Continue management as per ICU
Assessment / Plan
Assessment / Plan
Impression:
Patient is 64 years old with history of coronary artery disease, hyperlipidemia, hypertension, hypothyroidism, COPD, medication noncompliance who came to the ER with chest pain.
Patient was stopped taking all her medications for last 15-month, in the ER patient noted to have STEMI, underwent cardiac cath which showed:
1. Multivessel coronary artery disease involving the mid LAD and trifurcation stenosis (Crenshaw 1,1,1) involving the mid circumflex, large OM 1 and moderate OM 2 as well as the PDA and posterolateral branch
2. Moderately reduced LV systolic function.
CT surgery consulted for CABG consideration.
Patient seen and examined at bedside, denies any chest pain or shortness of breath, no abdominal pain, no nausea, no vomiting, no diarrhea or constipation.
Consult for hospitalist medicine for hypothyroidism.
Status post CABG January
Assessment/plan:
STEMI status post Cardiac cath shows multivessel disease/status post Quadruple bypass
Status post cardiac cath shows:
1. Multivessel coronary artery disease involving the mid LAD and trifurcation stenosis (Crenshaw 1,1,1) involving the mid circumflex, large OM 1 and moderate OM 2 as well as the PDA and posterolateral branch
2. Moderately reduced LV systolic function.
CT surgery consulted for CABG
Patient status post CABG on 01/21
Intubated and admitted to the ICU.
Currently extubated
Liver benign hemangioma
CT showed Possible hepatic mass.
Ultrasound showed: Echogenic hepatic mass suggestive of a benign hemangioma corresponding to recent CT finding
History of hypothyroidism
TSH 21.2.
Free T4 0.52
Patient used to be on Synthroid but not sure about the dose.
She said it could be 100 mcg or 125 mcg.
Patient was not taking her Synthroid for more than a year.
Will resume Synthroid at 50 mcg daily.
Need to repeat TSH/free T4 in 6 to 8 weeks.
Prediabetes (HBA1C 5.9)
Diet and exercise
Lifestyle modification
No need to start antidiabetic medication
Patient used to be on Jardiance for cardiac indications.
History�of�hypertension
Not taking any home meds, continue metoprolol
History of hyperlipidemia
Not taking any home meds, continue atorvastatin
Nicotine abuse.
Nicotine patches ordered
�
CODE STATUS:�Full�code
DVT�prophylaxis:�SCDs
Diet: cardiac.
Family communication: Discussed with son and daughter at bedside.
Disposition: Continue management in the ICU post CABG
Total time spent on today's encounter was 74 minutes which included time spent in counseling the patient/family regarding diagnosis and treatment plan as listed above, goals of care, and symptom management. Case was discussed with nursing staff,
specialists, and care coordinators/case management. All labs and imaging personally reviewed by me. Remainder the time spent in detailed review of previous records, lab data, imaging, and other medical provider documentation.
Anticipated Discharge: > 48 hours
Subjective/Interval History
-
Date of Service: January 23, 2025
Patient seen and examined at bedside, patient was sitting in a chair, discussed with family at bedside.
Denies any chest pain or shortness of breath, currently on 3 L of oxygen.
Objective Data
-
Labs:
Laboratory Results
01/23/25
04:36
WBC 13.7 H
Hgb 9.1 L
Hct 28.3 L
Plt Count 192
Sodium 135
Potassium 4.5
Chloride 103
Carbon Dioxide 31 H
BUN 17
Creatinine 0.6
Glucose 160 H
Calcium 8.3 L
Vital Signs:
Vital Signs
Temp Pulse Resp BP Pulse Ox
98.4 F 76 20 116/63 94
01/23/25 11:25 01/23/25 11:25 01/23/25 11:25 01/23/25 11:00 01/23/25 11:25
I&O
01/22/25 01/23/25 01/24/25
06:59 06:59 06:59
Intake Total 949.4 / 949.4 1309.7 / 1309.7 290 / 290
Output Total 1615 / 1615 1280 / 1280 605 / 605
Balance -665.6 / -665.6 29.7 / 29.7 -315 / -315
Physical Exam
-
General: Well Developed, Well Nourished and Appears in Distress
HEENT: Normocephalic, Atraumatic, No Ptosis, PERRLA and Nose Appears Normal
Respiratory: Rales and Other (Sternal incision clean)
Cardiac: Regular Rhythm and S1/S2
Breast: Deferred by me
GI: Soft, Nontender, Nondistended and Normal Bowel Sounds
Genito-urinary: No Costovertebral Tender
Musculoskeletal: No Clubbing, No Cyanosis and No Edema
Skin: Warm
Neuro: Awake and Alert
Psych: Calm
[2025-01-23] MEDS: FERRLECIT 110 MG IV (13:45)
--- NOTE | 2025-01-23 16:21 | PTCARENOTE ---
Needing emotional support this evening , worried she isnt progressing quick enough. Emotional support provided. IS and Acapella encouraged. Chest PT preformed by this RN. Ambulating in room with rolling walker and assist x 1. Does have some HASSAN
but resolves with rest. Oxygen remains at 3 L. Vss. Assessment otherwise unchanged from prior.
--- NOTE | 2025-01-23 20:30 | PTCARENOTE ---
Patient received resting in bed. Patient A+A+Ox3. No neurological deficits noted. Patient assisted to bathroom with assist x1 and use of rolling walker. Voided 200 ml edilia urine. Patient back to bed. No c/o headache, dizziness or
lightheadedness. HASSAN. O2 4L via NC. SpO2 92%. Lungs diminished throughout lung sanon. No adventitious breath sounds noted. Occasional nonproductive cough. Chest tube dressing intact. Sinus Rhythm. Heart rate 70's. Blood pressure 111/62
(78). Patient with no c/o chest pain, pressure or discomfort. Abdomen soft, nontender. Normoactive bowel sounds. No BM. Positive, palpable pulses. Generalized edema. Left hand/forearm edema. Sternal incision intact - Surgical adhesive - Open
to air. Right groin puncture site intact. Right lower extremity incision intact - Open to air. Left radial site incision intact - Open to air. Patient with no c/o back or flank pain. Right I.J. Cordis. Assessment as documented.
[2025-01-23] MEDS: REMOVE LIDOCAINE PATCH REMOVE (20:42)
[2025-01-23] MEDS: MELATONIN 10 MG PO (22:13)
[2025-01-23] MEDS: REMOVE NICOTINE PATCH 1 PATCH REMOVE (22:14)
[2025-01-24] VITALS (15 sets, daily range): BP systolic 104–129; BP diastolic 60–77; PULSE 67–70; O2SAT 91–95; BMI 35.3
--- NOTE | 2025-01-24 | PTCARENOTE ---
Patient sleeping without difficulty. Assessment as documented.
--- NOTE | 2025-01-24 02:16 | W.PN.CT ---
Today's Communication / Plan
-
No issues overnight�
Current meds (ASA, Plavix, Crestor, Amio, Protonix, Metoprolol)�
Continue to wean O2 (On 4l NC)�
Diuresis on 01/23, 40 mg of Lasix (-1170 neg)�
V wires removed�
Encourage IS and OOB
Assessment / Plan
-
Assessment:
-Severe 3v CAD- s/p Coronary artery bypass grafting x 4 (In situ JOSEPH to LAD, Ao to RSVG to OM1�OM3 in sequence, Ao to RSVG to PLB); LAAE with 35mm atrial clip by Dr. Blackwell on 01/21/25, pod #3
-IntraOp YASMANY: showed slightly better squeeze than previously predicted at 50% and no anteroseptal hypokinesis. There was no significant valvular disease; however, there is notable significant mitral annular calcification on the posterior side and a
ascending aorta of approximately 4.3 cm which is consistent with preoperative imaging.
-S/P STEMI on 01/17/25
-Hx STEMI S/P PCI with GREGG to GREGG to prox RCA, 12/20/13
-Brilinta washout
-Medical non-compliance
-HTN
-HLD
-Prediabetes (hgb A1C 5.9)
-Class 2 obesity (BMI 35)
-Hypothyroidism
-Current tobacco abuse (1/2 PPD since 16 y/o)
-Marijuana use (2-3 gummies/week)
-ETOH use (1 Liquor/week)
-Anxiety
-S/P Cholecystectomy
-S/P Repair of rotator cuff
-Acute postop blood loss anemia- stable, no transfusion
-Acute postop atelectasis/pulmonary insufficiency/hypercapnea
-Acute postop hypovolemia with subsequent hypervolemia
Subjective
-
Date of Service: January 24, 2025
Objective Data
-
PT 16.4 Sec (11.4-14.6) H 01/21/25 13:36
INR 1.29 01/21/25 13:36
APTT 34.1 Sec (23.4-35.0) 01/21/25 13:36
Vital Signs
Vital Signs
Temp Pulse Resp BP Pulse Ox
98.3 F 61 18 97/65 96
01/23/25 22:00 01/23/25 22:50 01/23/25 22:00 01/23/25 22:12 01/23/25 22:50
CT Intake/Output/Weight
01/23/25 01/23/25 01/24/25
06:59 18:59 06:59
Intake Total 360 / 1309.7 290 / 600 310 / 600
Output Total 535 / 1280 1355 / 1555 200 / 1555
Balance -175 / 29.7 -1065 / -955 110 / -955
SaO2: 96
Physical Exam
-
General: Awake
Cardiovascular: Regular rate & rhythm
Respiratory: Clear
Sternum: Stable
Incision: Clean, Dry and Intact
Extremities: Edema +1
--- NOTE | 2025-01-24 02:30 | PTCARENOTE ---
Patient rang call ibarra to go to bathroom. Patient A+A+Ox3. Patient assisted to bathroom without difficulty. Voided 150 ml edilia urine. Standing scale weight 93.3 kg. Back to bed. Patient given CHG bath and linens changed. Chest tube dressing
changed. Assessment/Interventions as documented.
[2025-01-24 04:21] LABS: Hematocrit 27.0 % (37.0-47.0); Hemoglobin 8.6 g/dL (12.0-16.0); Mean Corp Hgb Conc. 31.9 g/dL (33.0-37.0); Mean Corpuscular Volume 89.1 fL (81.0-99.0); Platelet Count 194 10^3/uL (130-400); Red Cell Dist. Width 15.9 % (11.5-14.5)
[2025-01-24 04:42] LABS: Blood Urea Nitrogen 19 mg/dl (7-17); Calcium 8.3 mg/dl (8.4-10.2); Carbon Dioxide 35 mmol/L (22-30); Chloride 101 mmol/L (98-107); Estimated Creatinine Clearance 106 ml/min; Glucose 129 mg/dl (70-99); Magnesium 2.3 mg/dl (1.6-2.3); Potassium 4.1 mmol/L (3.5-5.1); Sodium 136 mmol/L (135-145); eGFR > 60.00
[2025-01-24] MEDS: SYNTHROID 50 MCG PO (05:07)
[2025-01-24] MEDS: TYLENOL 975 MG PO ×3 (05:07→20:09)
--- NOTE | 2025-01-24 08:00 | PTCARENOTE ---
Assumed care of patient from previous RN. Walking rounds completed. patient oob in chair at time of assessment. AAOx3. NSR on monitor. HR 60-70s. 96% on 3L nc. IS - 500. +bs. tolerating diet. Yuly urine.+1 edema to L arm. General trace anasarca
elsewhere. All surgical sites c/d/i. R IJ cordis remains present and patent. no reports of pain at this time. will continue to monitor.
[2025-01-24] MEDS: NICODERM TRANSDERMAL 21 MG TRANSDERM (09:02)
[2025-01-24] MEDS: BACTROBAN 2% OINTMENT 1 APPLIC NASAL ×2 (09:02→20:09)
[2025-01-24] MEDS: CRESTOR 40 MG PO (09:04)
[2025-01-24] MEDS: PROTONIX 40 MG PO (09:04)
[2025-01-24] MEDS: LOPRESSOR 12.5 MG PO ×2 (09:04→20:09)
[2025-01-24] MEDS: PACERONE 200 MG PO ×3 (09:04→23:14)
[2025-01-24] MEDS: SENOKOT 8.6 MG PO ×2 (09:04→20:09)
[2025-01-24] MEDS: PLAVIX 75 MG PO (09:04)
[2025-01-24] MEDS: NEURONTIN 100 MG PO ×3 (09:04→23:15)
[2025-01-24] MEDS: LIDOCAINE 4% PATCH TOPICAL (09:05)
[2025-01-24] MEDS: NSS IV (09:05)
[2025-01-24] MEDS: LOW STRENGTH ASPIRIN 81 MG PO (09:05)
[2025-01-24] MEDS: MAGNESIUM OXIDE PO (09:05)
[2025-01-24] MEDS: ROXICODONE 5 MG PO (11:34)
--- NOTE | 2025-01-24 11:37 | CM ---
Addendum entered by Sandra Hoffman 01/24/25 12:39:
Awaiting P.T. and O.T. evaluations to see if she will have any skilled care needs.
Original Note:
Reviewed chart. Met with Mrs. Hammond to review discharge plans. She states she is feeling okay. We reviewed a home visit by the Transitional Care Nurse. She is agreeable to a home visit. She states she will only have to go to the second floor to
shower. She states she can have a first floor set-up if needed. Prior to admission she resides with her granddaughter in a two story home with two steps to enter. She has a full flight of steps to get to bedroom/full bathroom. She has a powder
room on the first floor. Prior to admission she was independent with ambulation and adls. She does not have any DME in the home. She has a prescription plan. Medical work-up in progress. The discharge plan is to return home with her granddaughter
and a home visit by the Transitional Care Nurse when medically stable.
--- NOTE | 2025-01-24 12:00 | PTCARENOTE ---
dysp on exertion when walking with cardiac rehab. pulse ox 88% on RA. took a while for her to recover. needed to take a couple breaks during her walk. using walker. PT/OT consult requested. will continue to monitor.
--- NOTE | 2025-01-24 13:18 | W.PN.CARDCBS ---
Today's Communication / Plan
-
Cont post op care
Remains in sinus
Impression / Plan
-
.
PCP: Dr. Raines
Card: Dr. Justin
Impression:
Admitted as STEMI alert 01/17/2025
AWMI 01/17/2025
MV CAD involving mid LAD and trifurcation stenosis of the mid circumflex, large OM1 and moderate OM 2 as well as the PDA and PLB by cardiac cath 01/18/2025
s/p In situ JOSEPH to LAD, Ao to RSVG to OM1�OM3 in sequence, Ao to RSVG to PLB, BONITA clip 01/21/25
ICM EF 40 to 45% by echo 01/18/2025
CAD s/p [place] and 3.5 mm Xience GREGG to the proximal to mid RCA 2013
Medication noncompliance, has intermittently stopped aspirin therapy
Active smoker
Hyperlipidemia with statin intolerance
Hypothyroidism with abnormal TFTs 01/18/2025
Hyperglycemia and prediabetes
Echo 12/21/2013: EF 55 to 60%, no WMA
Echo 01/18/2025: EF 40 to 45%, stage I diastolic dysfunction, normal RV size and function, no significant valve disease
- HgbA1c 5.9%, prediabetic
Plan:
-She presented with chest pain and EKG concerning for anterior STEMI status post urgent cardiac cath showing multivessel CAD. Troponin peaked at 12. Referred for CABG evaluation
- s/p In situ JOSEPH to LAD, Ao to RSVG to OM1�OM3 in sequence, Ao to RSVG to PLB, BONITA clip 01/21/25
Cont post op care
Remains sinus. Cont amiodarone.
Cont DAPT ASA and Plavix.
She reported significant myalgias on lipitor in past, she was transitioned to crestor 40mg daily at her request
Continue Metoprolol, she complained of fatigue with this in past. she reports she tolerated bystolic without issues and she would prefer to be on that as OP if possible
Continue nicotine patch
Appreciate hospitalist input, cont Synthroid, regarding abnormal TFTs with a history of hypothyroidism which appears to be linked to medication noncompliance. TSH was 21.2 and free T4 is low at 0.52. Synthroid 50 mcg ordered and patient is
recommended to repeat TSH and free T4 in 6 to 8 weeks
Discussed with nursing
Progress Note - Shellfish Manager
Subjective
Date of Service: January 24, 2025
Pt seen and examined. No complaints. No chest pain or shortness of breath.
Objective
Labs:
01/24/25 03:53
01/24/25 03:53
Labs
Hgb 8.6 g/dL (12.0-16.0) L 01/24/25 03:53
Hct 27.0 % (37.0-47.0) L 01/24/25 03:53
Plt Count 194 10^3/uL (130-400) 01/24/25 03:53
PT 16.4 Sec (11.4-14.6) H 01/21/25 13:36
INR 1.29 01/21/25 13:36
APTT 34.1 Sec (23.4-35.0) 01/21/25 13:36
Sodium 136 mmol/L (135-145) 01/24/25 03:53
Potassium 4.1 mmol/L (3.5-5.1) 01/24/25 03:53
BUN 19 mg/dl (7-17) H 01/24/25 03:53
Creatinine 0.6 mg/dL (0.6-1.0) 01/24/25 03:53
Glucose 129 mg/dl (70-99) H 01/24/25 03:53
Vital Signs and I&O:
Vital Signs
Temp Pulse Resp BP Pulse Ox
98 F 74 22 106/60 91
01/24/25 08:00 01/24/25 11:30 01/24/25 08:00 01/24/25 10:23 01/24/25 10:10
Vital Signs
Temp Pulse Resp BP Pulse Ox
98 F 74 22 106/60 91
01/24/25 08:00 01/24/25 11:30 01/24/25 08:00 01/24/25 10:23 01/24/25 10:10
Intake & Output
01/22/25 01/23/25 01/24/25 01/25/25
06:59 06:59 06:59 06:59
Intake Total 949.4 / 949.4 1309.7 / 1309.7 630 / 630 270 / 270
Output Total 1615 / 1615 1280 / 1280 1805 / 1805 225 / 225
Balance -665.6 / -665.6 29.7 / 29.7 -1175 / -1175 45 / 45
Physical Exam
Physical Exam
General: No acute distress, AAOX3
Neck: Negative JVD
Heart: Regular, Negative S3 positive S1/S2, Negative S4, No murmur
Lungs: CTA b/l, negative wheezes/rales/rhonchi
Abd: Positive BS, NT/ND, neg rebound/rigidity/guarding
Ext: Negative cyanosis/clubbing/edema
Neuro: nonfocal
[2025-01-24] MEDS: FERRLECIT 110 MG IV (14:25)
--- NOTE | 2025-01-24 16:00 | PTCARENOTE ---
VSS. no addiional changes in assessment at this time.
[2025-01-24] MEDS: MUCINEX 600 MG PO ×2 (17:00→20:09)
[2025-01-24] MEDS: DUONEB 3 ML INH (17:57)
[2025-01-24] MEDS: REMOVE LIDOCAINE PATCH REMOVE (20:09)
--- NOTE | 2025-01-24 20:40 | PTCARENOTE ---
Assumed care of pt from dayshift RN. Walking rounds completed. Pt AAOx3. TINAJERO. Appropriate. SR on the tele monitor. HR 70s. BP stable. Palpable pulses throughout. Trace generalized edema and trace edema on the L arm. Pt on 1 L NC. POX 90-92%. Lung
sounds diminished in B/L bases. SOB w/ exertion. Deep breathing and IS encouraged. Abdomen round. +BSx4. No BM. Voiding w/o issue. All surgical sites stable. Right arm PIV intact. Pt assisted to the bed w/ assistx1. Emotional support and
encouragement about recovery provided. See worklist for full nursing assessment and interventions. Call ibarra within reach.
[2025-01-24] MEDS: REMOVE NICOTINE PATCH 1 PATCH REMOVE (23:15)
[2025-01-24] MEDS: MELATONIN 10 MG PO (23:15)
--- NOTE | 2025-01-24 23:30 | PTCARENOTE ---
No acute change in assessment. VSS. All surgical sites stable. Call ibarra within reach.
[2025-01-25] VITALS (9 sets, daily range): BP systolic 107–133; BP diastolic 68–77; PULSE 68; O2SAT 93–96; BMI 35.5
--- NOTE | 2025-01-25 04:12 | PTCARENOTE ---
Pt reassessed. SR on the tele monitor. HR 60s. VSS. Pt assisted OOB to void then repositioned back into bed. SOB w/ walk to the bathroom. Recovered w/ rest. Labs drawn and sent. Call ibarra within reach.
[2025-01-25 04:17] LABS: Hematocrit 29.9 % (37.0-47.0); Hemoglobin 9.5 g/dL (12.0-16.0); Mean Corp Hgb Conc. 31.8 g/dL (33.0-37.0); Mean Corpuscular Volume 89.5 fL (81.0-99.0); Platelet Count 235 10^3/uL (130-400); Red Cell Dist. Width 16.0 % (11.5-14.5)
[2025-01-25 04:35] LABS: Blood Urea Nitrogen 17 mg/dl (7-17); Calcium 8.3 mg/dl (8.4-10.2); Carbon Dioxide 32 mmol/L (22-30); Chloride 102 mmol/L (98-107); Estimated Creatinine Clearance 106 ml/min; Glucose 106 mg/dl (70-99); Magnesium 2.3 mg/dl (1.6-2.3); Potassium 3.9 mmol/L (3.5-5.1); Sodium 137 mmol/L (135-145); eGFR > 60.00
--- NOTE | 2025-01-25 05:22 | W.PN.CT ---
Today's Communication / Plan
-
Plan:
-No major issues overnight. Hemodynamically and neurologically intact
-O2 dependent, poor efforts with IS, able to finally reach 750 mL last night
-O2 improved with use of IS, currently on 1L NC with O2sats 92-95%
-F/U 2-view cxr
-Wean off O2
-Encourage use of IS
-Cont. current meds (ASA, Plavix, Crestor, Amio, Protonix, Metoprolol)�
-OOB into chair/Ambulate
-PT/OT f/u
-Physiatry evaluation for possible [facility] placement
Assessment / Plan
-
Assessment:
-Severe 3v CAD- s/p Coronary artery bypass grafting x 4 (In situ JOSEPH to LAD, Ao to RSVG to OM1�OM3 in sequence, Ao to RSVG to PLB); LAAE with 35mm atrial clip by Dr. Blackwell on 01/21/25, pod #4
-IntraOp YASMANY: showed slightly better squeeze than previously predicted at 50% and no anteroseptal hypokinesis. There was no significant valvular disease; however, there is notable significant mitral annular calcification on the posterior side and a
ascending aorta of approximately 4.3 cm which is consistent with preoperative imaging.
-S/P STEMI on 01/17/25
-Hx STEMI S/P PCI with GREGG to GREGG to prox RCA, 12/20/13
-Brilinta washout
-Medical non-compliance
-HTN
-HLD
-Prediabetes (hgb A1C 5.9)
-Class 2 obesity (BMI 35)
-Hypothyroidism
-Current tobacco abuse (1/2 PPD since 16 y/o)
-Marijuana use (2-3 gummies/week)
-ETOH use (1 Liquor/week)
-Anxiety
-S/P Cholecystectomy
-S/P Repair of rotator cuff
-Acute postop blood loss anemia- stable, no transfusion
-Acute postop atelectasis/pulmonary insufficiency/hypercapnea
-Acute postop hypovolemia with subsequent hypervolemia
Discussed patient care with: Cardiology, Nursing, Respiratory Therapy, Pharmacy and Care Team
Subjective
-
Date of Service: January 25, 2025
Pt c/o mild incisional pain, otherwise feels well
Objective Data
-
Lab Results
01/25/25 03:51
01/25/25 03:51
PT 16.4 Sec (11.4-14.6) H 01/21/25 13:36
INR 1.29 01/21/25 13:36
APTT 34.1 Sec (23.4-35.0) 01/21/25 13:36
Vital Signs
Vital Signs
Temp Pulse Resp BP Pulse Ox
97.7 F 69 20 131/74 91
01/25/25 03:05 01/25/25 03:05 01/25/25 03:05 01/25/25 03:05 01/25/25 03:05
CT Intake/Output/Weight
01/24/25 01/24/25 01/25/25
06:59 18:59 06:59
Intake Total 340 / 630 390 / 390
Output Total 450 / 1805 375 / 750 375 / 750
Balance -110 / -1175 15 / -360 -375 / -360
SaO2: 95 (1L)
Physical Exam
-
General: Awake, Oriented and AOx3
Cardiovascular: Regular rate & rhythm, No Murmurs, No Rub and No Gallop
Respiratory: Decreased Breath Sounds (with mild basilar crackles)
Sternum: Stable
Incision: Clean, Dry, Intact and Dressing Intact
Extremities: Other (+trace edema)
Data Reviewed
-
Lab Results: Results Reviewed
Medications: Active Meds Reviewed
Chest X-Ray: Report Reviewed and Image Reviewed
ECG: Report Reviewed and Image Reviewed
[2025-01-25] MEDS: KCL 20 MEQ PO (05:37)
[2025-01-25] MEDS: TYLENOL 975 MG PO (05:37)
[2025-01-25] MEDS: SYNTHROID 50 MCG PO (05:38)
[2025-01-25] MEDS: PROTONIX 40 MG PO (07:56)
[2025-01-25] MEDS: SENOKOT 8.6 MG PO ×2 (07:56→19:59)
[2025-01-25] MEDS: LOPRESSOR 12.5 MG PO ×2 (07:56→19:59)
[2025-01-25] MEDS: LOW STRENGTH ASPIRIN 81 MG PO (07:57)
[2025-01-25] MEDS: PLAVIX 75 MG PO (07:57)
[2025-01-25] MEDS: CRESTOR 40 MG PO (07:57)
[2025-01-25] MEDS: MUCINEX 600 MG PO ×2 (07:57→19:59)
[2025-01-25] MEDS: NEURONTIN 100 MG PO (07:57)
[2025-01-25] MEDS: NICODERM TRANSDERMAL 21 MG TRANSDERM (07:57)
[2025-01-25] MEDS: PACERONE 200 MG PO ×3 (07:57→22:30)
[2025-01-25] MEDS: BACTROBAN 2% OINTMENT 1 APPLIC NASAL (08:08)
[2025-01-25] MEDS: NSS IV (08:08)
--- NOTE | 2025-01-25 08:39 | PTCARENOTE ---
Patient received from night RN; AAOx3, responds spontaneously to RN and follows commands; VSS; NSR on monitor; +1 left hand/arm edema and trace generalized anasarca; +2 DP and radial pulses; Shallow respirations; HASSAN; Moist, occasional cough with
yellow/clear, thick sputum; Weaned off 1L NC - SpO2 90-95% on RA; IS 750 ml - encouraged acapella and IS use; Patient passing gas but no BM since surgery - PO Dulcolax ordered and given; Patient urinating clear, edilia urine in bathroom; Surgical
sites intact; PIVx1 - #22 RAC; 2 view CXR completed; See nursing documentation for further information
[2025-01-25] MEDS: DULCOLAX 10 MG PO (08:42)
--- NOTE | 2025-01-25 09:20 | W.PN.CARDCBS ---
Addendum entered and electronically signed by Desean Justin MD 01/25/25 09:38:
I saw and examined the patient.
The RIVET TOSSER or PA's note was reviewed and I agree with the note.
Comment: General: Well developed, well nourished in NAD.
Neck: Supple, no JVD, HJR, carotids +2 B/L, no bruits bilaterally.
Heart: Non displaced PMI, RRR, no murmurs, No S3, S4, no rubs.
Lungs: scattered rhonchi
sternotomy well healed
Extremities: No clubbing, cyanosis or edema bilaterally.
Neuro: Grossly nonfocal, awake, alert and oriented x3.
stable cardiology status for d/c
remains in SR
f/u arranged
d/w CT surgery
Original Note:
Today's Communication / Plan
-
continue post op care
eval for home O2
consider for diuresis
OP cardiac follow up arranged
Impression / Plan
-
.
PCP: Dr. Turner
Card: Dr. Justin
Impression:
Admitted as STEMI alert 01/17/2025
AWMI 01/17/2025
MV CAD involving mid LAD and trifurcation stenosis of the mid circumflex, large OM1 and moderate OM 2 as well as the PDA and PLB by cardiac cath 01/18/2025
s/p In situ JOSEPH to LAD, Ao to RSVG to OM1�OM3 in sequence, Ao to RSVG to PLB, BONITA clip 01/21/25
ICM EF 40 to 45% by echo 01/18/2025
CAD s/p PR and 3.5 mm Xience GREGG to the proximal to mid RCA 2013
Medication noncompliance, has intermittently stopped aspirin therapy
Active smoker
Hyperlipidemia with statin intolerance
Hypothyroidism with abnormal TFTs 01/18/2025
Hyperglycemia and prediabetes
Echo 12/21/2013: EF 55 to 60%, no WMA
Echo 01/18/2025: EF 40 to 45%, stage I diastolic dysfunction, normal RV size and function, no significant valve disease
Plan:
- She presented with chest pain and EKG concerning for anterior STEMI status post urgent cardiac cath showing multivessel CAD. Troponin peaked at 12. Referred for CABG evaluation
- s/p In situ JOSEPH to LAD, Ao to RSVG to OM1�OM3 in sequence, Ao to RSVG to PLB, BONITA clip 01/21/25
- remains in SR. continue amio, low dose BB. of note, she complained of fatigue on metoprolol in past. she reports she tolerated bystolic without issues and she would prefer to be on that as OP if possible
- continue DAPT with asa, plavix
- CXR 01/25 with official read pending, however by my review with evidence effusions, CHF. would consider for lasix today and upon DC.
- She reported significant myalgias on lipitor in past, she was transitioned to crestor 40mg daily at her request
- Continue nicotine patch. tobacco cessation encouraged
- Appreciate hospitalist input, cont Synthroid, regarding abnormal TFTs with a history of hypothyroidism which appears to be linked to medication noncompliance. TSH was 21.2 and free T4 is low at 0.52. Synthroid 50 mcg ordered and patient is
recommended to repeat TSH and free T4 in 6 to 8 weeks
- planned for DC today. OP follow up arranged. eval for home O2
- d/w nursing, CT surgery RIVET TOSSER
Progress Note - Bowling Ball Weigher And Packer
Subjective
Date of Service: January 25, 2025
Patient reports pain and breathing okay
Objective
Labs:
01/25/25 03:51
01/25/25 03:51
Labs
Hgb 9.5 g/dL (12.0-16.0) L 01/25/25 03:51
Hct 29.9 % (37.0-47.0) L 01/25/25 03:51
Plt Count 235 10^3/uL (130-400) D 01/25/25 03:51
PT 16.4 Sec (11.4-14.6) H 01/21/25 13:36
INR 1.29 01/21/25 13:36
APTT 34.1 Sec (23.4-35.0) 01/21/25 13:36
Sodium 137 mmol/L (135-145) 01/25/25 03:51
Potassium 3.9 mmol/L (3.5-5.1) 01/25/25 03:51
BUN 17 mg/dl (7-17) 01/25/25 03:51
Creatinine 0.6 mg/dL (0.6-1.0) 01/25/25 03:51
Glucose 106 mg/dl (70-99) H 01/25/25 03:51
Vital Signs and I&O:
Vital Signs
Temp Pulse Resp BP Pulse Ox
97.7 F 68 15 107/68 94
01/25/25 07:40 01/25/25 08:00 01/25/25 07:40 01/25/25 07:37 01/25/25 08:18
Vital Signs
Temp Pulse Resp BP Pulse Ox
97.7 F 68 15 107/68 94
01/25/25 07:40 01/25/25 08:00 01/25/25 07:40 01/25/25 07:37 01/25/25 08:18
Intake & Output
01/23/25 01/24/25 01/25/25 01/26/25
07:59 07:59 07:59 07:59
Intake Total 1372.4 / 1372.4 500 / 750 390 / 390
Output Total 1175 / 1175 1800 / 1800 900 / 900
Balance 197.4 / 197.4 -1300 / -1050 -510 / -510
Physical Exam
Physical Exam
GEN: No distress, awake, alert, oriented x3. Sitting in chair. Obese
HEENT: supple, anicteric, mmm, EOMI
LUNGS: Decreased BS B/L, no wheezes/rales
CV: Reg, S1/S2, no murmur
ABD: soft, BS+, NT/ND
EXT: No cyanosis, clubbing. Trace edema of B/L LE
NEURO: Gross non-focal
SKIN: Warm, pink, dry. No rash. Sternotomy incision c/d/i.
--- NOTE | 2025-01-25 09:38 | PTCARENOTE ---
pt walked in hallway on room air. pulse ox down to 80%. after three min of rest pt recovered to 96%. pt now oob in chair. HEALTH RECORDS TECHNOLOGY TEACHER made aware
[2025-01-25] MEDS: LASIX 40 MG IV (09:55)
--- NOTE | 2025-01-25 12:23 | PTCARENOTE ---
pt having n/v. COLOR FINISHER made at bedside zofran ordered.
[2025-01-25] MEDS: ZOFRAN 4 MG IV (12:26)
--- NOTE | 2025-01-25 12:31 | CM ---
Addendum entered by Sandra Hoffman 01/25/25 15:41:
Bed available at [facility]. Telephone call to her insurance to start the pre-cert process. The pending auth. number is [id number]. Sent clinical to [facility] for SNF/Rehab. review. Awaiting decision. [facility] can accept tomorrow if
approves by insurance.
Original Note:
Reviewed chart. Met with Mrs. Hammond to review discharge plans. We reviewed recommendations for SNF/Rehab. She is willing to consider going to a SNF/Rehab if her insurance covers the stay. We reviewed SNF/Rehabs in the area and she has selected
[facility]. Telephone call to [facility] Admissions to make the referral. Referral sent. Will start pre-cert process. The discharge plan is to go to [facility] SNF if bed available and approved bu insurance.
[2025-01-25] MEDS: TYLENOL PO ×2 (14:03→19:59)
[2025-01-25] MEDS: NEURONTIN PO ×2 (16:11→22:31)
[2025-01-25] MEDS: REMOVE LIDOCAINE PATCH 1 PATCH REMOVE (19:59)
--- NOTE | 2025-01-25 20:15 | PTCARENOTE ---
Assumed care of pt from dayshift RN. Walking rounds completed. Pt AAOx3. SR on the tele monitor. HR 60-70s. BP stable. Palpable pulses throughout. Trace generalized edema. +1 edema in left arm. Pt on 2 L NC. POX 94-99%. 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 Deep breathing
and IS encouraged. Abdomen soft. Nontender. Pt reports BM today. Voiding w/o issue. All surgical sites stable. PIV x1 intact. Pt repositioned in bed. See worklist for full nursing assessment and interventions. Call ibarra within reach.
[2025-01-25] MEDS: ROXICODONE 5 MG PO (22:30)
[2025-01-25] MEDS: REMOVE NICOTINE PATCH 1 PATCH REMOVE (22:31)
[2025-01-25] MEDS: MELATONIN 10 MG PO (23:30)
[2025-01-26 00:28] VITALS: BP 117/69
--- NOTE | 2025-01-26 00:31 | PTCARENOTE ---
No change in assessment. SR on the tele monitor. HR 60s. VSS. No c/o pain at this time. Call ibarra within reach.
[2025-01-26 02:16] VITALS: BP 127/65
--- NOTE | 2025-01-26 04:00 | PTCARENOTE ---
Pt assessment unchanged. Pt SR on the tele monitor. HR 60s. BP stable. Attempted pt on RA. POX 86%. Pt placed back on 2 L NC. POX up to 95%. All surgical site stable. Up to the bathroom w/ stand by assist as needed. Call ibarra within reach.
[2025-01-26 04:14] VITALS: BMI 34.8
[2025-01-26 04:19] VITALS: BP 131/76
[2025-01-26] MEDS: SYNTHROID 50 MCG PO (05:31)
[2025-01-26] MEDS: TYLENOL PO (05:32)
--- NOTE | 2025-01-26 05:45 | W.PN.CT ---
Today's Communication / Plan
-
-pod #5
-No major issues overnight. Hemodynamically and neurologically intact
-O2 dependent, pOx 86% on RA and 92-98% on 2L
-2-view cxr on 01/25 with small stable L pleural effusion and b/l atelectasis
-Wean off O2 as tolerated
-Encourage use of IS
-Cont. current meds (ASA, Plavix, Crestor, Amio, Protonix, Metoprolol, Mucinex)�
-OOB into chair/Ambulate
-PT/OT f/u
-possible d/c to [facility] today if insurance approves
Assessment / Plan
-
Assessment:
-Severe 3v CAD- s/p Coronary artery bypass grafting x 4 (In situ JOSEPH to LAD, Ao to RSVG to OM1�OM3 in sequence, Ao to RSVG to PLB); LAAE with 35mm atrial clip by Dr. Blackwell on 01/21/25, pod #5
-IntraOp YASMANY: showed slightly better squeeze than previously predicted at 50% and no anteroseptal hypokinesis. There was no significant valvular disease; however, there is notable significant mitral annular calcification on the posterior side and a
ascending aorta of approximately 4.3 cm which is consistent with preoperative imaging.
-S/P STEMI on 01/17/25
-Hx STEMI S/P PCI with GREGG to GREGG to prox RCA, 12/20/13
-Brilinta washout
-Medical non-compliance
-HTN
-HLD
-Prediabetes (hgb A1C 5.9)
-Class 2 obesity (BMI 35)
-Hypothyroidism
-Current tobacco abuse (1/2 PPD since 16 y/o)
-Marijuana use (2-3 gummies/week)
-ETOH use (1 Liquor/week)
-Anxiety
-S/P Cholecystectomy
-S/P Repair of rotator cuff
-Acute postop blood loss anemia- stable, no transfusion
-Acute postop atelectasis/pulmonary insufficiency/hypercapnea
-Acute postop hypovolemia with subsequent hypervolemia
Discussed patient care with: Nursing and Care Team
Subjective
-
Date of Service: January 26, 2025
Objective Data
-
Lab Results
01/25/25 03:51
01/25/25 03:51
PT 16.4 Sec (11.4-14.6) H 01/21/25 13:36
INR 1.29 01/21/25 13:36
APTT 34.1 Sec (23.4-35.0) 01/21/25 13:36
Vital Signs
Vital Signs
Temp Pulse Resp BP Pulse Ox
98 F 72 20 131/76 98
01/26/25 04:19 01/26/25 05:30 01/26/25 04:19 01/26/25 04:19 01/26/25 05:00
CT Intake/Output/Weight
01/25/25 01/25/25 01/26/25
06:59 18:59 06:59
Intake Total 430 / 430
Output Total 375 / 750 1150 / 1600 450 / 1600
Balance -375 / -360 -720 / -1170 -450 / -1170
SaO2: 98
Physical Exam
-
General: Awake, Oriented and AOx3
Cardiovascular: Regular rate & rhythm, No Murmurs, No Rub and No Gallop
Respiratory: Decreased Breath Sounds (with mild basilar crackles)
Sternum: Stable
Incision: Clean, Dry, Intact and Dressing Intact
Extremities: Other (+trace edema)
Data Reviewed
-
Lab Results: Results Reviewed
Medications: Active Meds Reviewed
Chest X-Ray: Report Reviewed and Image Reviewed
ECG: Report Reviewed and Image Reviewed
--- NOTE | 2025-01-26 08:00 | PTCARENOTE ---
Assumed care of patient from previous RN. Walking rounds completed. patient oob in chair at time of assessment. AAOx3. NSR on monitor. HR 70s. 96% on 2L nc. IS -500. +bs. complaints of nausea. Yuly urine. cloudy. +1 edema to L arm. General trace
anasarca. All surgical sites c/d/i. pivx1 patent. will continue to monitor.
--- NOTE | 2025-01-26 08:50 | W.PN.CARDCBS ---
Addendum entered and electronically signed by Desean Justin MD 01/26/25 09:38:
I saw and examined the patient.
The BUILD ENGINEER or PA's note was reviewed and I agree with the note.
Comment: General: Well developed, well nourished in NAD.
Neck: Supple, no JVD, HJR, carotids +2 B/L, no bruits bilaterally.
Heart: Non displaced PMI, RRR, no murmurs, No S3, S4, no rubs.
Lungs: Scattered rhonchi
Extremities: No clubbing, cyanosis or edema bilaterally.
Neuro: Grossly nonfocal, awake, alert and oriented x3.
Stable cardiology status for discharge. Remains in sinus rhythm.
Original Note:
Today's Communication / Plan
-
continue post op care
for DC to SNF today
OP cardiac follow up arranged
Impression / Plan
-
.
PCP: Dr. Turner
Card: Dr. Justin
Impression:
Admitted as STEMI alert 01/17/2025
AWMI 01/17/2025
MV CAD involving mid LAD and trifurcation stenosis of the mid circumflex, large OM1 and moderate OM 2 as well as the PDA and PLB by cardiac cath 01/18/2025
s/p In situ JOSEPH to LAD, Ao to RSVG to OM1�OM3 in sequence, Ao to RSVG to PLB, BONITA clip 01/21/25
ICM EF 40 to 45% by echo 01/18/2025
CAD s/p IN and 3.5 mm Xience GREGG to the proximal to mid RCA 2013
Medication noncompliance, has intermittently stopped aspirin therapy
Active smoker
Hyperlipidemia with statin intolerance
Hypothyroidism with abnormal TFTs 01/18/2025
Hyperglycemia and prediabetes
Echo 12/21/2013: EF 55 to 60%, no WMA
Echo 01/18/2025: EF 40 to 45%, stage I diastolic dysfunction, normal RV size and function, no significant valve disease
Plan:
- She presented with chest pain and EKG concerning for anterior STEMI status post urgent cardiac cath showing multivessel CAD. Troponin peaked at 12. Referred for CABG evaluation
- s/p In situ JOSEPH to LAD, Ao to RSVG to OM1�OM3 in sequence, Ao to RSVG to PLB, BONITA clip 01/21/25
- main complaint this AM is nausea with oxycodone.
- remains in SR. continue amio, low dose lopressor. of note, she complained of fatigue on metoprolol in past. she reports she tolerated bystolic without issues and she would prefer to be on that as OP if possible
- continue DAPT with asa, plavix
- received IV lasix yesterday and weight down 4 pounds overnight if accurate. wean supp O2 as able. continue IS
- She reported significant myalgias on lipitor in past, she was transitioned to crestor 40mg daily at her request
- Continue nicotine patch. tobacco cessation encouraged
- Appreciate hospitalist input, cont Synthroid, regarding abnormal TFTs with a history of hypothyroidism which appears to be linked to medication noncompliance. TSH was 21.2 and free T4 is low at 0.52. Synthroid 50 mcg ordered and patient is
recommended to repeat TSH and free T4 in 6 to 8 weeks
- planned for DC today to SNF. OP follow up arranged.
- d/w nursing, CT surgery BUILD ENGINEER
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
Subjective
Date of Service: January 26, 2025
reports nausea post oxycodone. denies significant pain or SOB
Objective
Labs:
01/25/25 03:51
01/25/25 03:51
Labs
Hgb 9.5 g/dL (12.0-16.0) L 01/25/25 03:51
Hct 29.9 % (37.0-47.0) L 01/25/25 03:51
Plt Count 235 10^3/uL (130-400) D 01/25/25 03:51
PT 16.4 Sec (11.4-14.6) H 01/21/25 13:36
INR 1.29 01/21/25 13:36
APTT 34.1 Sec (23.4-35.0) 01/21/25 13:36
Sodium 137 mmol/L (135-145) 01/25/25 03:51
Potassium 3.9 mmol/L (3.5-5.1) 01/25/25 03:51
BUN 17 mg/dl (7-17) 01/25/25 03:51
Creatinine 0.6 mg/dL (0.6-1.0) 01/25/25 03:51
Glucose 106 mg/dl (70-99) H 01/25/25 03:51
Vital Signs and I&O:
Vital Signs
Temp Pulse Resp BP Pulse Ox
98 F 72 20 131/76 98
01/26/25 04:19 01/26/25 05:30 01/26/25 04:19 01/26/25 04:19 01/26/25 05:48
Vital Signs
Temp Pulse Resp BP Pulse Ox
98 F 72 20 131/76 98
01/26/25 04:19 01/26/25 05:30 01/26/25 04:19 01/26/25 04:19 01/26/25 05:48
Intake & Output
01/24/25 01/25/25 01/26/25 01/27/25
07:59 07:59 07:59 07:59
Intake Total 500 / 750 390 / 390 430 / 430
Output Total 1800 / 1800 900 / 900 1450 / 1450
Balance -1300 / -1050 -510 / -510 -1020 / -1020
Physical Exam
Physical Exam
GEN: No distress, awake, alert, oriented x3. Sitting in chair. Obese
HEENT: supple, anicteric, mmm, EOMI
LUNGS: Decreased BS B/L, no wheezes/rales
CV: Reg, S1/S2, no murmur
ABD: soft, BS+, NT/ND
EXT: No cyanosis, clubbing. Trace edema of B/L LE
NEURO: Gross non-focal
SKIN: Warm, pink, dry. No rash. Sternotomy incision c/d/i.
[2025-01-26 09:45] VITALS: BP 113/73
[2025-01-26] MEDS: PROTONIX PO ×2 (09:47→09:56)
[2025-01-26] MEDS: PLAVIX 75 MG PO (09:47)
[2025-01-26] MEDS: SENOKOT 8.6 MG PO (09:47)
[2025-01-26] MEDS: NICODERM TRANSDERMAL 21 MG TRANSDERM (09:47)
[2025-01-26] MEDS: MUCINEX 600 MG PO (09:47)
[2025-01-26] MEDS: CRESTOR 40 MG PO (09:48)
[2025-01-26] MEDS: LOW STRENGTH ASPIRIN 81 MG PO (09:48)
[2025-01-26] MEDS: LOPRESSOR 12.5 MG PO (09:48)
[2025-01-26] MEDS: NEURONTIN PO (09:48)
[2025-01-26] MEDS: PACERONE 200 MG PO (09:48)
[2025-01-26] MEDS: NSS IV (09:49)
--- NOTE | 2025-01-26 11:47 | W.DCSUMMARY ---
Discharge Summary
Discharge Data
Date of Admission: 01/17/25
Date of Discharge: 01/26/25
-
Pending Results: No
Hospital Course
Primary care physician: Hammad Turner
Outpatient advertising photographer: Bradly Guthrie
Inpatient consultants: [facility], pulmonary director oracle, PT/OT
Procedures:
1. CABG, left atrial appendage clip
Primary Diagnosis:
1. Anterior STEMI, multivessel coronary disease
Secondary Diagnoses:
1. Hx STEMI S/P PCI with GREGG to GREGG to prox RCA, 12/20/13
2. HTN
3. HLD
4. Prediabetes (hgb A1C 5.9)
5. Class 2 obesity (BMI 35)
6. Hypothyroidism
7. Current tobacco abuse (1/2 PPD since 16 y/o)
8. Anxiety
9. S/P Cholecystectomy
10. S/P Repair of rotator cuff
- Acute postop blood loss anemia- stable, no transfusion
- Acute postop atelectasis/pulmonary insufficiency/hypercapnea
- Acute postop hypovolemia with subsequent hypervolemia
HPI: 64-year-old female with a past medical history of CAD AND prior inferior [place] status post stent to proximal RCA (2013), hypertension, and tobacco misuse, was admitted to [facility] ER o 01/17/25 with chest pain. EKG showed acute anterior STEMI.
Hospital course: Patient was loaded with Brilinta prior to going to the Cardiac Clinical Unit Coordinator. LHC on 01/18 reported severe multivessel CAD involving the mid LAD and trifurcation stenosis involving the mid circumflex, large OM1 and moderate OM 2 and
PDA and posterior lateral branch with moderately reduced LV systolic function. Transitioned to Cangrelor which was discontinued on 01/19. TEG WNL on 01/20. Patient was taken the operating room on 01/21/2029 and underwent CABG x 4 JOSEPH to LAD, SVG to
OM1�OM3 in sequence, SVG to PLB and left atrial appendage exclusion #35mm atrial clip by Dr. Jagruti Blackwell. Left radial artery was abandoned as conduit choice due to small size and tortuosity. For further details please see operative note. Patient
received 1 pooled platelets intraoperatively and returned to CVICU on Levophed, Cardene, insulin, Precedex. Patient was extubated at 1630 on the day of surgery and required Hi-flow. Oxygen. Dobutamine was weaned off on postoperative day 1 and
patient delined. ASA/Plavix were initiated. Nicotine patch started and patient instructed on necessity of life long smoking cessation. Left pleural chest tube was removed and patient weaned from mid flow down to 4 L nasal cannula. Patient was
diuresed and right IJ cordis removed on postoperative day #3. Patient noted to have O2 desaturation to 86% on room air with ambulation and recovered to 93-94% on 1 L nasal cannula. Patient intermittently refused to wear her oxygen stating that she
feels fine. PT/OT was consulted and Mucinex ordered. On postop day #4, patient was diuresed with Lasix 40 mg IV x 1 and urine output was 1000 cc. Case management ordered home O2 as patient vacillating between going home and going to rehab.
Dulcolax was given for constipation with resultant bowel movement. Patient had a relatively new diagnosis of hypothyroidism prior to admission with TSH of 21.2 and free T4 of 0.52. Patient was continued on Synthroid 50 mcg daily and will follow-up
with PCP in 4-6 weeks for further monitoring. Weight on day of discharge was 91.9 kg with baseline weight recorded at 93.1 kg. Pertinent labs on discharge: Hemoglobin 9.5, WBC 12.0, platelet 235 k, creatinine 0.6. Two view CXR reported Stable small
left pleural effusion and bibasilar probable atelectasis. Patient accepted for inpatient rehab at [facility].
Home medication changes:
O2 @ 2L/min with ambulation to maintain O2 sat>90%
Discharge Plan
-
Patient Disposition: Senior Care/SNF
Discharge Diagnosis/Procedures: CABG x 4, left atrial appendage clip (01/21/25)
Condition: Good
Diet: Low Cholesterol and Low Sodium
Activity: No strenuous activity
Driving Restrictions: Not until seen by your Dr
Bathing Restrictions: OK to Shower
Other Services: Cardiac Rehab
Specialty Instructions: Weigh Daily- Call MD for wt gain/loss 3 lbs overnight/5 lbs in 1 week
Instructions: Coronary artery bypass graft surgery (DC), Exercises after open heart surgery, Cardiac rehabilitation
Referrals:
CT Transitional Care Nurse [Outside]
Referral Note:
The Cardiothoracic Transitional Care Nurse will call you to set up a visit in 1-2 days.
[facility] [Outside] - 02/21/25 1:00 pm
Referral Note: Cardiac Rehab Orientation and� First Exercise appointment is on _02/21 at 1:00 pm___
The Cardiac Rehab gym is located on the first floor of the [facility].
Susan Goss MD [Active, Pulmonary Medicine] - in six weeks
Norma Martinez CRNP [Specified Professional Personl, Cardiology] - 03/03/25 9:40 am
UNKNOWN - PT NOT,INTERVIEWE [Family Provider]
Charley Hughes CRNP [Specified Professional Personl, Cardiac Surgery] - 02/16/25 1:30 pm
Additional Discharge Medication Instructions: O2 @ 2L NC with ambulation to maintain O2 sat>90%
Prescriptions:
New
levothyroxine 50 mcg Tablet
50 mcg PO DAILY @ 0600 Qty: 0 2RF
pantoprazole 40 mg Tablet,Delayed Release (Dr/Ec)
40 mg PO DAILY Qty: 0 2RF
oxycodone 5 mg Tablet
5 mg PO Q4HPRN PRN (Reason: severe pain) Qty: 10 0RF
cyclobenzaprine 10 mg Tablet
5 mg PO Q8HPRN PRN (Reason: muscle spasm) Qty: 0 0RF
metoprolol succinate [Toprol XL] 25 mg tablet extended release 24 hr
25 mg PO DAILY Qty: 30 2RF
furosemide [Lasix] 20 mg tablet
20 mg PO DAILY Qty: 10 0RF
acetaminophen 325 mg Tablet
650 mg PO Q4HPRN PRN (Reason: mild pain,headache,temp >101F ) Qty: 0 0RF
clopidogrel 75 mg Tablet
75 mg PO DAILY Qty: 0 2RF
nicotine 21 mg/24 hr Patch 24 Hour
21 mg transdermal DAILY Qty: 0 0RF
rosuvastatin 20 mg Tablet
40 mg PO DAILY Qty: 0 0RF
Continued
albuterol sulfate [Proventil HFA] 90 MCG/PUFF HFA aerosol inhaler
2 puff inhalation Q4HPRN PRN (Reason: wheezing) Qty: 0 0RF
melatonin 10 mg Tablet
20 mg PO HSPRN PRN (Reason: Insomnia)
aspirin 81 MG tablet,delayed release (DR/EC)
81 mg PO DAILY Qty: 0 0RF
Discontinued
nitroglycerin 0.4 MG tablet, sublingual
0.4 mg sublingual [id number] PRN (Reason: chest pain) Qty: 30 2RF
Discharge Orders:
Discharge Patient (As Directed); Ordered 01/26/25
Ordered By: Tasha Underwood
Care Plan Goals
Care Plan Goals:
Problem: Readiness for enhanced knowledge related to diagnosis and treatment plan
Goal: Understand your diagnosis and treatment plan needs, including medications if applicable.
Instructions: Know your diagnosis, underlying causes and treatment plan options, including medications if applicable. Consult with your health care team to learn about your diagnosis and treatment plan, including medications if applicable.
Discharge Date and Time
Discharge Date/Time: 01/26/25 14:06
Print Language: GUATEMALAN
[2025-01-26 11:55] VITALS: BP 112/77
[2025-01-26] MEDS: TYLENOL 650 MG PO (11:55)
--- NOTE | 2025-01-26 12:26 | PTCARENOTE ---
report given to RN at [facility]. iv and tele pack removed. will continue ot monitor.
--- NOTE | 2025-01-26 13:03 | CM ---
spoke with pt in room, [facility] has a bed for her today, auth approved- [id number]- 9 days. elizabeth set up for 1pm, pt on O2.
== END 2025-01-26 14:06 | DRG 233 ==
LOC: CVICU 23:45
PROVIDERS: Anesthesiology; Clinical Nurse Specialist Acute Care; Emergency Medicine; Hospitalist; Nurse Practitioner; Physician Assistant Medical; Thoracic Surgery (Cardiothoracic Vascular Surgery); ADMITTING PHYSICIAN Internal Medicine Interventional Cardiology; ATTENDING PHYSICIAN Student in an Organized Health Care Education/Training Program; CONSULT PHYSICIAN Internal Medicine; EMERGENCY PHYSICIAN Emergency Medicine; OTHER PHYSICIAN General Practice
PROC: B2151ZZ Fluoroscopy of Left Heart using Low Osmolar Contrast (ICD-10-PCS; 2025-01-17)
PROC: 4A023N7 Measurement of Cardiac Sampling and Pressure, Left Heart, Percutaneous Approach (ICD-10-PCS; 2025-01-17)
PROC: B2111ZZ Fluoroscopy of Multiple Coronary Arteries using Low Osmolar Contrast (ICD-10-PCS; 2025-01-17)
PROC: 021209W Bypass Coronary Artery, Three Arteries from Aorta with Autologous Venous Tissue, Open Approach (ICD-10-PCS; 2025-01-21)
PROC: 02L70CK Occlusion of Left Atrial Appendage with Extraluminal Device, Open Approach (ICD-10-PCS; 2025-01-21)
PROC: 06BP4ZZ Excision of Right Saphenous Vein, Percutaneous Endoscopic Approach (ICD-10-PCS; 2025-01-21)
PROC: 5A09357 Assistance with Respiratory Ventilation, Less than 24 Consecutive Hours, Continuous Positive Airway Pressure (ICD-10-PCS; 2025-01-21)
PROC: 5A1221Z Performance of Cardiac Output, Continuous (ICD-10-PCS; 2025-01-21)
PROC: 30233R1 Transfusion of Nonautologous Platelets into Peripheral Vein, Percutaneous Approach (ICD-10-PCS; 2025-01-21)
PROC: B24BZZ4 Ultrasonography of Heart with Aorta, Transesophageal (ICD-10-PCS; 2025-01-21)
PROC: 02100Z9 Bypass Coronary Artery, One Artery from Left Internal Mammary, Open Approach (ICD-10-PCS; 2025-01-21)
DX: I21.09 ST elevation (STEMI) myocardial infarction involving other coronary artery of anterior wall (principal); J95.1 Acute pulmonary insufficiency following thoracic surgery; D62 Acute posthemorrhagic anemia; J98.11 Atelectasis; T82.855A Stenosis of coronary artery stent, initial encounter; I25.10 Atherosclerotic heart disease of native coronary artery without angina pectoris; E86.1 Hypovolemia; E87.70 Fluid overload, unspecified; K59.00 Constipation, unspecified; I10 Essential (primary) hypertension; E78.00 Pure hypercholesterolemia, unspecified; R73.03 Prediabetes; Z68.35 Body mass index [BMI] 35.0-35.9, adult; E66.812 Obesity, class 2; E03.9 Hypothyroidism, unspecified; F17.210 Nicotine dependence, cigarettes, uncomplicated; F41.9 Anxiety disorder, unspecified; J44.9 Chronic obstructive pulmonary disease, unspecified; Y71.2 Prosthetic and other implants, materials and accessory cardiovascular devices associated with adverse incidents; I34.81 Nonrheumatic mitral (valve) annulus calcification; I25.5 Ischemic cardiomyopathy; D18.03 Hemangioma of intra-abdominal structures; Y83.2 Surgical operation with anastomosis, bypass or graft as the cause of abnormal reaction of the patient, or of later complication, without mention of misadventure at the time of the procedure; I25.2 Old myocardial infarction; Z95.5 Presence of coronary angioplasty implant and graft; Z91.148 Patient's other noncompliance with medication regimen for other reason; Z91.128 Patient's intentional underdosing of medication regimen for other reason
CPT/HCPCS: 71045; 71046; 71250; 76700; 80048; 80053; 80061; 81003; 81015; 82248; 82330; 82565; 82805; 82810; 82947; 82962; 83036; 83735; 84132; 84302; 84439; 84443; 84484; 84520; 85014; 85018; 85025; 85027; 85049; 85347; 85576; 85610; 85730; 86850; 86900; 86901; 86920; 87086; 93005; 93306; 93312; 93320; 93325; 93458; 93880; 93923; 93931; 93970; 94002; 94060; 94640; 97110; 97163; 97167; 97530; 97535; 99291; C1769; C1894; C9460; J2916; P9073; Q9967

== ENCOUNTER 2025-02-21 15:20 | Outpatient (RCR) | payer BC, SELFPAY | END 2025-02-21 23:59 | disposition home or self-care (01) | LOC: CRHB 15:20 | PROVIDERS: ATTENDING PHYSICIAN Internal Medicine Cardiovascular Disease | DX: I25.2 Old myocardial infarction (principal); Z95.1 Presence of aortocoronary bypass graft | CPT/HCPCS: G0422 ==